=== PATIENT | female | born 1940 | race Caucasian/White ===

== ENCOUNTER 2022-07-13 07:35 | Outpatient (CLI) | payer MEDICARE, BC, SELFPAY ==
[2022-07-13 11:24] LABS: Cholesterol* 201 mg/dL (90-199); HDL Cholesterol* 72 mg/dL (>=50); LDL Cholesterol Calculated 118 mg/dL (<100); Triglycerides* 54 mg/dL (40-149)
[2022-07-13 12:13] LABS: Vitamin B12* 782 pg/mL (243-894)
== END 2022-07-13 07:36 | disposition home or self-care (01) ==
PROVIDERS: PCP Internal Medicine; Visit Provider Internal Medicine
DX: E78.5 Hyperlipidemia, unspecified (principal); E53.8 Deficiency of other specified B group vitamins
CPT/HCPCS: 80061; 82607

== ENCOUNTER 2022-10-24 13:40 | Outpatient (CLI) | payer MEDICARE, BC, SELFPAY ==
--- NOTE | 2022-10-24 14:00 | CRLHL7_ITS ---
For Patients: As a result of the Century Cures Act, medical imaging exams and procedure reports are released immediately into your electronic medical record. You may view this report before your referring provider. If you have questions, please contact your health care provider. Indication: LLL pulmonary nodule Technique: Noncontrast CT chest Please note that all CT scans at this facility use dose modulation, iterative reconstruction, and/or weight-based dosing when appropriate to reduce radiation dose to as low as reasonably achievable. Comparison: 07/24/2021 Findings: Biapical pleural parenchymal scarring is present. Stable 6 millimeter pleural-based nodule superior segment left lower lobe. Other smaller nodules are similar bilaterally. Mild scarring within the right middle lobe. No pleural effusion or acute infiltrate. Dense vascular calcifications are present. Stable low-density nodules throughout the thyroid. Scattered subcentimeter mediastinal lymph nodes. Incidental simple cysts within the left hepatic lobe. Coronary artery calcifications. Status post median sternotomy. No fractures present. Impression: Stable pulmonary nodules. No additional follow-up indicated. Please note that all CT scans at this facility use dose modulation, iterative reconstruction, and/or weight-based dosing when appropriate to reduce radiation dose to as low as reasonably achievable. Dictated by Eliseo Moreno MD @ 10/25/2022 11:00:55 AM (Electronically Signed)
== END 2022-10-24 13:41 | disposition home or self-care (01) ==
PROVIDERS: PCP Internal Medicine; Visit Provider Internal Medicine
DX: R91.1 Solitary pulmonary nodule (principal)
CPT/HCPCS: 71250

== ENCOUNTER 2023-03-08 08:11 | Outpatient (CLI) | payer MEDICARE, BC, SELFPAY | END 2023-03-08 08:12 | disposition home or self-care (01) | PROVIDERS: PCP Internal Medicine; Visit Provider Family Medicine | DX: R53.83 Other fatigue (principal); E53.8 Deficiency of other specified B group vitamins; R06.02 Shortness of breath | CPT/HCPCS: 80053 ==

== ENCOUNTER 2023-07-26 14:12 | Emergency (ER) | payer MEDICARE, BC, SELFPAY ==
[2023-07-26 14:31] VITALS: BP 138/65; PULSE 103; RESP 18; TEMP 36.4; O2SAT 98; BMI 16.8
--- NOTE | 2023-07-26 15:16 | ED.GENADULT ---
HPI - General Adult General Chief complaint: Fall/Minor Trauma Stated complaint: fall, hit head on concrete Time Seen by Provider: 07/26/23 15:16 History of Present Illness HPI narrative: Patient here after falling on her concrete driveway. She was opening the car door with a bag in her right arm and fell straight back. She hit her upper back and back of her head. Reddened area to back of her head, no bump yet or bleeding. Back is sore. When taking the patient to the bathroom, staff noting that she is unsteady at times and feeling foggy . Takes Plavix. 82-year-old woman presenting to the emergency department after a fall. She is not complaining of any significant pain beyond her back being a little sore. Apparently had been trying to open the car door while holding her bag as well and fell straight back. She denies that this was a syncopal event otherwise. Reported feeling ?foggy? on initial evaluation. Does take Plavix. She feels better now on would just as soon go home. No abdominal pain. No chest pain. No sense of irregular heartbeat/palpitations. Extremities were not injured. History of frequently feeling dizzy or with a fullness in her head. Related Data Home Medications Medication Instructions Recorded Confirmed cholecalciferol (vitamin D3) 25 1,000 unit PO DAILY 07/24/22 08/20/23 mcg (1,000 unit) tablet cyanocobalamin (vitamin B-12) 1,000 mcg PO DAILY 07/24/22 08/20/23 1,000 mcg tablet sennosides 8.6 mg tablet 8.6 mg PO DAILY 07/24/22 08/20/23 omega 4-vjs-dlc-fish oil 100 1 cap PO QDAY 02/26/23 08/20/23 mg-160 mg-1,000 mg capsule (Fish Oil) Previous Rx's Medication Instructions Recorded diltiazem HCl 120 mg 120 mg PO DAILY #90 caps 07/24/22 capsule,extended release 24 hr clopidogrel 75 mg tablet 75 mg PO DAILY #90 tabs 08/12/23 fluoxetine 10 mg capsule 10 mg PO QAM #90 caps 08/12/23 rosuvastatin 40 mg tablet 40 mg PO DAILY #90 tabs 08/12/23 Allergies Allergy/AdvReac Type Severity Reaction Status Date / Time No Known Drug Allergies Allergy Verified 08/20/23 08:44 Review of Systems Status of ROS: Reports: 6 or more systems reviewed and unremarkable except as noted in History and below PFSH PFSH Surgical History (Updated 08/26/23 @ 15:32 by Teagan Garcia MD) History of melanoma excision ?Z98.890 - Other specified postprocedural states (ICD-10) ?Z85.820 - Personal history of malignant melanoma of skin (ICD-10) History of total hip replacement (2011) ?Z96.649 - Presence of unspecified artificial hip joint (ICD-10) History of tonsillectomy ?Z90.89 - Acquired absence of other organs (ICD-10) History of squamous cell carcinoma excision (2002) ?Z98.890 - Other specified postprocedural states (ICD-10) ?Z85.9 - Personal history of malignant neoplasm, unspecified (ICD-10) History of repair of rotator cuff (1984) ?Z98.890 - Other specified postprocedural states (ICD-10) History of mitral valve replacement (2016) ?Z95.2 - Presence of prosthetic heart valve (ICD-10) History of hysterectomy ?Z90.710 - Acquired absence of both cervix and uterus (ICD-10) History of cataract extraction ?Z98.49 - Cataract extraction status, unspecified eye (ICD-10) Social History (Updated 08/20/23 @ 09:05 by Ame Nolan MD) Narrative: lives alone. . Non-smoker. What is your current living situation?: declined to answer Problems where you live: declined to answer In the past 12 months, utilities in danger of being shut off: declined to answer In past 12 months, lack of transportation kept you from medical appts, meetings, work, or getting things needed for daily living: declined to answer In the past 12 mos, have been you worried that your food would run out before you had money to buy more?: declined to answer In the past 12 mos, the food you bought just didn't last and you didn't have money to buy more?: declined to answer Smoking Status: Never smoker Do you use any of these nicotine containing products: None Second hand tobacco smoke exposure: No How often do you have a drink containing alcohol: never How often do you have six or more drinks on one occasion: Never AUDIT-C Alcohol total score: 0 Non-prescribed substance use: denies use How often does anyone, including family, friends and others, physically hurt you: decline to answer How often does anyone, including family, friends and others, insult or talk down to you: decline to answer How often does anyone, including family, friends and others, threaten you with harm: decline to answer How often does anyone, including family, friends and others, scream or curse at you: decline to answer Little interest or pleasure in doing things: not at all Feeling down, depressed, or hopeless: not at all Exam Narrative: Exam Narrative: A pleasant. Of good energy. Winces a little bit with movement in spite of herself I think. Cranial nerves 2-12 look to be intact. Pupils are equal and brisk. Appropriately accommodating. Neck is supple. No midline tenderness. Mild erythema and maybe subtle swelling the occipital area of her head. Lungs are clear. No midline back tenderness. Sore to palpation in the periscapular midthoracic spine but not markedly so. No deformity. No tenderness to oppositional compression. Moving all extremities without difficulty. No significant injury appreciated. Seems subtly confused, a little indecisive. Const: Vital Signs, click to edit/add: Vital Signs - 24 hr 07/26/23 14:31 07/26/23 16:18 Temperature 97.6 F Pulse Rate [Right Pulse Oximeter] 103 H 75 Respiratory Rate 18 18 Blood Pressure [Ri ght Upper Arm] 138/65 136/62 Pulse Oximetry 98 97 Oxygen Delivery Me thod Room Air Room Air Documenting provider has reviewed patient's vital signs: yes Course Vital Signs Vital signs: Initial Vital Signs Temperature 97.6 F 07/26/23 14:31 Temperature Source Temporal Artery Scan 07/26/23 14:31 Pulse Rate 103 H 07/26/23 14:31 Pulse Rhythm Regular 07/26/23 14:31 Respiratory Rate 18 07/26/23 14:31 Blood Pressure 138/65 07/26/23 14:31 Blood Pressure Mean 89 07/26/23 14:31 Blood Pressure Position Sitting 07/26/23 14:31 Pulse Oximetry 98 07/26/23 14:31 Oxygen Delivery Method Room Air 07/26/23 14:31 Vital Signs Temperature 97.6 F 07/26/23 14:31 Pulse Rate 103 H 07/26/23 14:31 Respiratory Rate 18 07/26/23 14:31 Blood Pressure 138/65 07/26/23 14:31 Pulse Oximetry 98 07/26/23 14:31 Oxygen Delivery Method Room Air 07/26/23 14:31 Temperature 97.6 F 07/26/23 14:31 Pulse Rate 75 07/26/23 16:18 Respiratory Rate 18 07/26/23 16:18 Blood Pressure 136/62 07/26/23 16:18 Pulse Oximetry 97 07/26/23 16:18 Oxygen Delivery Method Room Air 07/26/23 16:18 Medical Decision Making MDM Narrative Medical decision making narrative: Given age and potentially significant fall/mechanism, would recommend imaging of head and probably neck. Does not appear to have significant injury elsewhere. She was disinclined but decided to proceed with family's encouragement. EKG as below Head CT by my read looks negative for any acute abnormalities. Radiology over-read noted, concurs. CT cervical spine reviewed; radiology over-read below IMPRESSION: 1. No acute fracture or traumatic subluxation. 2. Multilevel cervical spondylosis. 3. Multiple hypoattenuating lesions in the thyroid gland, measuring up to 1.8 cm the right thyroid lobe. Thyroid ultrasound is offered for further characterization on a nonemergent basis. Discussed findings. Overall improved. ECG Data Attestation: I personally reviewed and interpreted this ECG as follows: (Sinus rhythm at a rate of 74. First degree AV block. Similar to prior on my review.) Discharge Plan Discharge Clinical Impression: Back contusion, Closed head injury, Fall Patient Disposition: Home w/ Parent or Adult Condition: Stable Additional Instructions: You do have this diagnosis of persistent postural perceptual dizziness. Unclear if this may have been playing a role in your fall. Consider icing sore areas couple of times daily over the next few days. Gentle stretching. Stay well-hydrated. Return for new and focal weakness, severe headache, repeated vomiting. Signs or symptoms of a concussion might be nausea or headache upon exertion which can also be an indication to back off that level of activity and reassess in a week.? Concussion can also be represented by smoldering nausea or smoldering headache, difficulty with concentration, mood lability general somnolence, sense of persistent fog or dizziness/lightheadedness.? If these symptoms are becoming apparent and continuing beyond 7-10 days, be re-evaluated for further recommendations. Prescriptions: No Action cyanocobalamin (vitamin B-12) 1,000 mcg tablet 1,000 mcg PO DAILY cholecalciferol (vitamin D3) 25 mcg (1,000 unit) tablet 1,000 unit PO DAILY sennosides 8.6 mg tablet 8.6 mg PO DAILY diltiazem HCl 120 mg capsule,extended release 24hr 120 mg PO DAILY Qty: 90 3RF Fish Oil 100-160-1,000 mg capsule 1 cap PO QDAY rosuvastatin 40 mg tablet 40 mg PO DAILY Qty: 90 3RF fluoxetine 10 mg capsule 10 mg PO QAM Qty: 90 3RF clopidogrel 75 mg tablet 75 mg PO DAILY Qty: 90 3RF Follow Up/Referrals: Teagan Garcia MD [Primary Care Provider] - Stand Alone Forms: [facility] Info Instructions
--- NOTE | 2023-07-26 15:26 | CRLHL7_ITS ---
For Patients: As a result of the Century Cures Act, medical imaging exams and procedure reports are released immediately into your electronic medical record. You may view this report before your referring provider. If you have questions, please contact your health care provider. INDICATION: Fall. TECHNIQUE: Noncontrast CT images acquired through the cervical spine. COMPARISON: None. FINDINGS: Straightening of the cervical lordosis. Mild rightward cervical curvature. Vertebral heights maintained. No acute fracture or traumatic subluxation. Degenerative changes at the atlantodental articulation. Left facet ankylosis at C3-4. Mild grade 1 anterolisthesis C4 on C5. Moderately advanced disc height loss at C4-5 and C5-6. Multilevel posterior disc osteophyte complexes contribute up to snbr-fy-jzjddpjl spinal canal narrowing at C5-6. Multilevel uncinate spurring and facet arthropathy contribute up to advanced neural foraminal stenosis on the left at C4-5 and right at C5-6. Atherosclerotic calcifications at the carotid bifurcations. Multiple hypoattenuating lesions in the thyroid gland, measuring up to 1.8 cm within the right thyroid lobe posteriorly. Pleural-parenchymal scarring in the lung apices. IMPRESSION: 1. No acute fracture or traumatic subluxation. 2. Multilevel cervical spondylosis. 3. Multiple hypoattenuating lesions in the thyroid gland, measuring up to 1.8 cm the right thyroid lobe. Thyroid ultrasound is offered for further characterization on a nonemergent basis. Please note that all CT scans at this facility use dose modulation, iterative reconstruction, and/or weight-based dosing when appropriate to reduce radiation dose to as low as reasonably achievable. Dictated by Boston Blair MD @ 07/26/2023 4:40:43 PM (Electronically Signed)
--- NOTE | 2023-07-26 15:26 | CRLHL7_ITS ---
For Patients: As a result of the Century Cures Act, medical imaging exams and procedure reports are released immediately into your electronic medical record. You may view this report before your referring provider. If you have questions, please contact your health care provider. INDICATION: Fall. TECHNIQUE: Noncontrast CT images acquired through the brain. COMPARISON: None. FINDINGS: Upxq-lk-lxwprsoz diffuse cerebral volume loss. No mass effect or midline shift. The parsons-white differentiation is maintained. No acute intracranial hemorrhage or pathologic extra-axial fluid collection. Patchy hypoattenuation in the supratentorial white matter, suggestive of ahnq-nx-aermfmtu chronic microvascular ischemic changes. Dense atherosclerotic calcifications in the carotid siphons. Chronic lacunar infarction left cerebellar hemisphere. Thinning of the ocular lenses. The calvarium is intact. The visualized paranasal sinuses and mastoid air cells are clear. IMPRESSION: No acute intracranial hemorrhage or mass effect. Please note that all CT scans at this facility use dose modulation, iterative reconstruction, and/or weight-based dosing when appropriate to reduce radiation dose to as low as reasonably achievable. Dictated by Boston Blair MD @ 07/26/2023 4:36:49 PM (Electronically Signed)
[2023-07-26 16:18] VITALS: BP 136/62; PULSE 75; RESP 18; O2SAT 97
== END 2023-07-26 17:08 | disposition home or self-care (01) ==
PROVIDERS: Emergency Provider Family Medicine; PCP Internal Medicine
DX: S09.90XA Unspecified injury of head, initial encounter (principal); S30.0XXA Contusion of lower back and pelvis, initial encounter; W18.30XA Fall on same level, unspecified, initial encounter
CPT/HCPCS: 70450; 72125; 93005; 99284; 99285

== ENCOUNTER 2023-08-09 07:50 | Outpatient (CLI) | payer MEDICARE, BC, SELFPAY | END 2023-08-09 07:51 | disposition home or self-care (01) | LOC: NFLDREF 08-14 06:07 | PROVIDERS: PCP Internal Medicine; Referring Provider Internal Medicine; Visit Provider Internal Medicine | DX: Z00.00 Encounter for general adult medical examination without abnormal findings (principal); E78.5 Hyperlipidemia, unspecified; E53.8 Deficiency of other specified B group vitamins | CPT/HCPCS: 80061; 82607 ==

== ENCOUNTER 2023-12-03 05:07 | Outpatient (CLI) | payer MEDICARE, BC, SELFPAY ==
--- OUTSIDE RECORDS SUMMARY | 2023-12-05 05:13 | XMS_ITS ---
Author Name Unknown Organization [facility] Address [address] [place] [address] Care Team Providers Care Counter Stitcher Name Role Phone Unavailable Unavailable Unavailable Surgery Details Not on file Complications Check Surgery Details section. Procedure Estimated Blood Loss Check Surgery Details section. Procedure Findings Check Surgery Details section. Procedure Specimens Taken Check Surgery Details section.
--- OUTSIDE RECORDS SUMMARY | 2023-12-05 05:13 | XMS_ITS | Referral Summary ---
Author Name Unknown Organization [facility] Address [address] [place] [address] Care Team Providers Care Chain Machine Operator Name Role Phone Elsewhere, Pcp Primary Care Provider Unavailabl e Source Comments Patient records contain information from all sites at [facility]. For routine questions regarding patient records, call [phone] during business hours, M-F 8:00 AM - 5:00 PM Central Time. Record requests for emergency care only can be directed to [phone] at any time.[facility] Allergies No known active allergies Medications Medication [...] week 05/25/2022 How often do you attend [facility] or amish services? More than 4 times per year 05/25/2022 Do you belong to any clubs o r organizations such as roman catholic groups, unions, fraternal or athletic groups, or [...] and heating? Not hard at all 05/25/2022 [facility] [place] of Occupat ional Health - Occupational Stress [...] place to sleep or slept in a longterm (including now)? No 05/25/2022 Nutrition Answer Date [...] on file Medical Devices Implanted Type Area Fox Farmer Device Identifier Shelf Expiration Date Model / Serial / Lot Cardiac Valve Prosthesis- Implanted:10/11 (Quantity not on file) Cardiac Valve Prosthesis Chest Care Teams Chain Machine Operator Relationship Specialty Start Date End Date Elsewhere, Pcp PCP - General Internal Medicine 05/24/22
--- OUTSIDE RECORDS SUMMARY | 2023-12-05 05:13 | XMS_ITS | Clinical Summary ---
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 02/25/2012 03/18/2012 Immunizations [...] 02/13/2012 (Declined) Medical Devices Implanted Type Area Wireless Team Member Device Identifier Shelf Expiration Date Model / Serial / Lot Valve Mitral 27mm Mosaic Tissue - [id number] Implanted:Qty: 1 on 10/09/2017 by Arian Alonzo MD at [facility] N/A: Mitral Valve Medtronic Cardiac Surgery 07/30/2022 [id number] / [id number] / Advance Directives Latest Code Status on File Code Status Date Activated Date Inactivated Comments Full Code 10/10/2017 8:10 AM 10/16/2017 4:15 PM Code Status History Code Status Date Activated Date Inactivated Comments Full Code 10/09/2017 6:00 AM 10/09/2017 11:27 AM Care Teams Materials Development Engineer Relationship Specialty Start Date End Date Teagan Garcia MD [address] [place] [address] PCP - General Internal Medicine 10/28/17
--- OUTSIDE RECORDS SUMMARY | 2023-12-05 05:13 | XMS_ITS | Clinical Summary ---
Author Name Unknown Organization [facility] Address [address] [place] [address] Care Team Providers Care Flight Software Test Engineer Name Role Phone Elsewhere, Pcp Primary Care Provider Unavailabl e Source Comments Patient records contain information from all sites at [facility]. For routine questions regarding patient records, call [phone] during business hours, M-F 8:00 AM - 5:00 PM Central Time. Record requests for emergency care only can be directed to [phone] at any time.[facility] Allergies No known active allergies Medications Medication [...] week 05/25/2022 How often do you attend [facility] or baptist services? More than 4 times per year [...] and heating? Not hard at all 05/25/2022 [facility] [place] of Occupat ional Health - Occupational Stress [...] place to sleep or slept in a prison (including now)? No 05/25/2022 Nutrition Answer Date [...] history exists Medical Devices Implanted Type Area Demographic Analyst Device Identifier Shelf Expiration Date Model / Serial / Lot Cardiac Valve Prosthesis- Implanted:10/11 (Quantity not on file) Cardiac Valve Prosthesis Chest Care Teams Flight Software Test Engineer Relationship Specialty Start Date End Date Elsewhere, Pcp PCP - General Internal Medicine 05/24/22
== END 2023-12-03 05:08 | disposition home or self-care (01) ==
PROVIDERS: PCP Internal Medicine; Visit Provider Family Medicine
DX: R55 Syncope and collapse (principal)
CPT/HCPCS: A0425; A0427

== ENCOUNTER 2023-12-03 05:48 | Emergency (ER) | payer MEDICARE, BC, SELFPAY ==
[2023-12-03] VITALS (13 sets, daily range): BP systolic 117–172; BP diastolic 70–81; PULSE 67–93; RESP 18–20; TEMP 36.6; O2SAT 96–99; BMI 17.5
--- OUTSIDE RECORDS SUMMARY | 2023-12-03 05:51 | XMS_ITS | Referral Summary ---
Author Name Unknown Organization [facility] Address [address] [place] [address] Care Team Providers Care Room Service Waiter/Waitress Name Role Phone Elsewhere, Pcp Primary Care Provider Unavailabl e Source Comments Patient records contain information from all sites at [facility]. For routine questions regarding patient records, call [phone] during business hours, M-F 8:00 AM - 5:00 PM Central Time. Record requests for emergency care only can be directed to [phone] at any time.[facility] Allergies No known active allergies Medications Medication Sig Dispensed Refills Start Date End Date Status rosuvastatin (CRESTOR) 40 mg tablet Take 1 tablet by mouth daily. 0 02/23/2020 Active dilTIAZem (CARDIZEM) 120 mg tablet Take 120 mg by mouth daily. 0 Active clopidogreL (PLAVIX) 75 mg tablet Take by mouth daily. 0 02/23/2019 Active sennosides (SENOKOT) 8.6 mg tablet Take 25.8 mg by mouth daily. 0 Active cholecalciferol (VITAMIN D3) 25 mcg (1,000 Unit) capsule Take 1 capsule by mouth daily. 0 02/23/2020 Active diphenhydrAMINE (BENADRYL) 25 mg capsule Take 25 mg by mouth as needed. 0 10/04/2017 Active acetaminophen (TYLENOL) 325 mg tablet Take 325 mg by mouth as needed for pain. Used Rarely 0 Active Hospital, Clinic, or Other Facility Administered Medication Ordered Dose Route Frequency Start Date End Date Status lidocaine (PF) 10 mg/mL (1 %) injection 5 mL (XYLOCAINE)Indications:Enceph alopathy 5 mL Ifil Once 06/15/2022 Active Social History Tobacco Use Types Packs/Day Years Used Date Smoking Tobacco: Former Cigarettes Smokeless Tobacco: Never Humiliation, Afraid, Rape, and Kick questionnair e Answer Date Recorded Within the last year, have y ou been afraid of your partner or ex-partner? No 05/25/2022 Within the last year, have y ou been humiliated or emotionally abused in other ways by your partner or ex-partner? No Within the last year, have y ou been kicked, hit, slapped, or otherwise physically hurt by your partner or ex-partner? No 05/25/2022 Within the last year, have y ou been raped or forced to have any kind of sexual activity by your partner or ex-partner? No 05/25/2022 Social Connection and Isolat ion Panel [NHANES] Answer Date Recorded In a typical week, how many times do you talk on the phone with family, friends, or neighbors? More than three times a week 05/25/2022 How often do you get togethe r with friends or relatives? More than three times a week 05/25/2022 How often do you attend [facility] or restorationist services? More than 4 times per year 05/25/2022 Do you belong to any clubs o r organizations such as mandaeism groups, unions, fraternal or athletic groups, or school groups? Yes 05/25/2022 How often do you attend meet ings of the clubs or organizations you belong to? More than 4 times per year 05/25/2022 Are you , , di vorced, , never , or living with a partner? 05/25/2022 AUDIT-C Answer Date Recorded Q1: How often do you have a drink containing alcohol? 4 or more times a week 05/25/2022 Q2: How many drinks containi ng alcohol do you have on a typical day when you are drinking? 1 or 2 2 Q3: How often do you have si x or more drinks on one occasion? Never 05/25/2022 Overall Financial Resource Strain (CARDIA) Answe r Date Recorded How hard is it for you to pa y for the very basics like food, housing, medical care, and heating? Not hard at all 05/25/2022 [facility] [place] of Occupat ional Health - Occupational Stress Questionnaire Answer Date Recorded Do you feel stress - tense, restless, nervous, or anxious, or unable to sleep at night because your mind is troubled all the time - these days? To some extent 05/25/2022 Exercise Vital Sign Answer Date Recorde d On average, how many days pe r week do you engage in moderate to strenuous exercise (like a brisk walk)? 7 days 05/25/2022 On average, how many minutes do you engage in exercise at this level? 80 min 05/25/2022 Hunger Vital Sign Answer Date Recorded Within the past 12 months, y ou worried that your food would run out before you got the money to buy more. Never true 05/25/20 Within the past 12 months, t he food you bought just didn't last and you didn't have money to get more. Never true 05/25/2022 PRAPARE - Transportation Answer Date Re corded In the past 12 months, has l ack of transportation kept you from medical appointments or from getting medications? No 05/11 In the past 12 months, has l ack of transportation kept you from meetings, work, or from getting things needed for daily living? No 05/25/2022 Housing Stability Vital Sign Answer Dave e Recorded In the last 12 months, was t here a time when you were not able to pay the mortgage or rent on time? No 05/25/2022 In the last 12 months, how many places have you lived? 1 05/25/2022 In the last 12 months, was t here a time when you did not have a steady place to sleep or slept in a [place] [facility] (including now)? No 05/25/2022 Nutrition Answer Date Recorded Nutrition: EVOO Fat Source Yes 05/25 On average, how many serving s of fruits and vegetables do you eat per day (serving size is equal to 1 cup or approximately the size of a tennis ball)? 4-5 05/25/2022 Dental Answer Date Recorded Dental: Regular Dentist Yes 05/25/20 Employment Answer Date Recorded Employment status Retired 05/25/2022 Education Answer Date Recorded What is the highest level of school you have completed or the highest degree you have received? Bachelor's degree (e.g., BA, AB, BS) 05/25/2022 Sex and Gender Information Value Date Recorded Sex Assigned at Female 05/25/2022 1:20 PM CDT Gender Identity Female 05/25/2022 1:20 PM CDT Sexual Orientation Straight 05/25/2022 1: 20 PM CDT Last Filed Vital Signs Vital Sign Reading Time Taken Comments Blood Pressure 149/80 05/15/2022 3:30 PM CDT Pulse 76 05/15/2022 3:30 PM CDT Temperature 36 ??C (96.8 ??F) 05/15/2022 3:00 PM CDT Respiratory Rate 16 05/15/2022 2:39 PM CDT Oxygen Saturation 92% 05/15/2022 3:30 PM CDT Inhaled Oxygen Concentration - - Weight 50 kg (110 lb 3.7 oz) 05/15/2022 2:40 PM CDT Height - - Body Mass Index - - Plan of Treatment Not on file Medical Devices Implanted Type Area Racing Board Marker Device Identifier Shelf Expiration Date Model / Serial / Lot Cardiac Valve Prosthesis- Implanted:10/11 (Quantity not on file) Cardiac Valve Prosthesis Chest Care Teams Room Service Waiter/Waitress Relationship Specialty Start Date End Date Elsewhere, Pcp PCP - General Internal Medicine 05/24/22
--- OUTSIDE RECORDS SUMMARY | 2023-12-03 05:51 | XMS_ITS | Clinical Summary ---
Author Name Unknown Organization [facility] Address [address] [place] [address] Care Team Providers Care Middle [employer] Tutor Name Role Phone Elsewhere, Pcp Primary Care Provider Unavailabl e Source Comments Patient records contain information from all sites at [facility]. For routine questions regarding patient records, call [phone] during business hours, M-F 8:00 AM - 5:00 PM Central Time. Record requests for emergency care only can be directed to [phone] at any time.[facility] Allergies No known active allergies [...] week 05/25/2022 How often do you attend [facility] or restoration services? More than 4 times per year 05/25/2022 Do you belong to any clubs o r organizations such as nondenominational groups, unions, fraternal or athletic groups, or [...] and heating? Not hard at all 05/25/2022 [facility] [address] of Occupat ional Health - Occupational Stress [...] place to sleep or slept in a care home (including now)? No 05/25/2022 Nutrition Answer Date [...] Mass Index - - Plan of Treatment Health Maintenance Due Date Last Done Comments Depression Screening (Annual PHQ-2) 11/11/2023 Fall Risk Screen (Annual) 11/11/2023 DTaP,Tdap,and Td Vaccines (5 - Td or Tdap) 10/02/2031 10/02/2021, 08/08/2011, 10/31/2005, Additional history exists Pneumococcal vaccine (65+ years) Completed 09/28/2016, 09/20/2014, 11/11/2006, Additional history exists Zoster Vaccines Completed 07/23/2021, 07/0 06/2021, 05/08/2011 COVID-19 Vaccine Completed 08/10/2023, , 09/05/2021, Additional history exists Influenza Vaccine Completed 08/10/2023, , 09/05/2021, Additional history exists Medical Devices Implanted Type Area Sales Branch Manager Device Identifier Shelf Expiration Date Model / Serial / Lot Cardiac Valve Prosthesis- Implanted:10/11 (Quantity not on file) Cardiac Valve Prosthesis Chest Care Teams Middle School Tutor Relationship Specialty Start Date End Date Elsewhere, Pcp PCP - General Internal Medicine 05/24/22
--- OUTSIDE RECORDS SUMMARY | 2023-12-03 05:51 | XMS_ITS | Clinical Summary ---
Author Name Unknown Organization [facility] Address [place], [place] [address] Care Team Providers Care Dish Person Name Role Phone Teagan Garcia MD Primary Care Provider [phone] Allergies No known active allergies Medications Medication Sig Dispensed Refills Start Date End Date Status diphenhydrAMINE (BENADRYL) 25 mg capsuleIndications:In somnia, unspecified type Take 1 capsule by mouth at bedtime if needed (takes 1-2 tablets for sleep). 0 10/04/2017 Active sennosides (SENNA) 8.6 mg tablet Take 8.6 mg by mouth once daily. Patient alternates between taking 1 tablet every evening and 2 tablets every evening 0 Active clopidogrel (PLAVIX) 75 mg tablet Take by mouth once daily. 3 02/23/2019 Active lactobacillus combination no.4 (PROBIOTIC) 3 billion cell cap Take by mouth once daily. 0 02/25/2019 Active rosuvastatin (CRESTOR) 20 mg tablet Take 1 tablet by mouth once daily. 0 02/23/2020 Active cholecalciferol (VITAMIN D3) 1,000 unit capsule Take 1 capsule by mouth once daily. 0 02/23/2020 Active Active Problems Problem Noted Date Diagnosed Date S/P MVR (mitral valve replacement) 10/09/2017 Overview: MVR with 27 mm Mosai bioprosthetic valve 10/09/17 Dr. Alonzo History of total right hip replacement 7 Severe mitral regurgitation 09/20/2017 Pelvic organ prolapse quantification stage 1 rec tocele 02/14/2017 Colon polyp 09/21/2014 Overview: Colonoscopy 01/2015 normal repeat in 5 years Cataracts, bilateral 10/26/2013 GERD (gastroesophageal reflux disease) 3 Melanoma 12/01/2012 Overview: On right lower leg Unspecified venous (peripheral) insufficiency Right hip pain 11/12/2011 Status post left hip replacement 11/12/2011 Overview: November 2010. 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 02/25/2012 03/18/2012 Immunizations Name Administration Dates Next Due DTaP 10/31/2005 HepA-HepB (Twinrix) 02/11/2012,09/11/2011,2010 Influenza, High-dose Inactivated 08/17/2016 Influenza, IIV3 (Age >=3 years) 09/04/2011 Influenza, ccIIV3 (Age >=18 Years) 09/09/2017 Pneumococcal Poly,23-Valent (Pneumovax) 11/11/19 07,11/28/2005 Pneumococcal conj 13-Valent (Prevnar 13) 016,09/20/2014,11/28/2005 Tdap 08/08/2011 Typhoid (oral) 09/11/2011 Zoster (Zostavax-ZVL, live) 05/08/2011 Family History Medical History Relation Name Comments Heart Disease Father Heart Disease Mother Hypertension Mother Blood Disease No Family History Cancer-breast No Family History Relation Name Status Comments Father Mother Social History Tobacco Use Types Packs/Day Years Used Date Smoking Tobacco: Former Cigarettes 1 25 0 [birth year]/11/1956 - 11/11/1981 Smokeless Tobacco: Never Tobacco Cessation:Counseling Given: Yes Alcohol Use Standard Drinks/Week Comments Yes 0 (1 standard drink = 0.6 oz pur e alcohol) 1-2 glasses of wine at night Social Connections Answer Date Recorded Frequency of Communication with Friends and Fami ly Not on file 11/11/2021 Financial Resource Strain Answer Date R ecorded Difficulty of Paying Living Expenses Not on file 11/11/2021 Difficulty of Paying Living Expenses Not on file 11/11/2021 Sex and Gender Information Value Date Recorded Sex Assigned at Not on file Gender Identity Not on file Sexual Orientation Not on file Obstetrics History Para Term AB IAB SAB Ectopic Multiple Livin g Live Births 3 2 2 1 1 2 Date Outcome GA Total Labor Labor/2nd/3rd Weight Sex Delivery Anes PTL Kaylan A1 A5 Name Cl in Term Term SAB Last Filed Vital Signs Vital Sign Reading Time Taken Comments Blood Pressure 122/69 05/29/2023 2:48 PM CDT Pulse 75 05/29/2023 2:48 PM CDT Temperature 36.8 ??C (98.3 ??F) 12/01/2019 2:42 PM CS T Respiratory Rate 14 08/05/2020 1:42 PM CDT Oxygen Saturation 96% 05/29/2023 2:48 PM CDT Inhaled Oxygen Concentration - - Weight 49.9 kg (110 lb) 09/05/2022 9:44 AM CDT Height 162.6 cm (5' 4) 02/25/2019 10:40 AM CDT Body Mass Index 18.88 02/25/2019 10:40 AM CDT Plan of Treatment Health Maintenance Due Date Last Done Comments Zoster (shingles) series for age 50+ (2 of 3) 07/03/2011 05/08/2011 Medicare Wellness for age 65+ 09/28/2017, 09/26/2015, 09/21/2014, Additional history exists Depression screening for age 12+ 10/29/2018 10/29/2017, 09/04/2017, 09/28/2016 BMI (ht and wt on same day) for age 18+ 02/26/2020 02/25/2019, 08/06/2018, 04/30/2018, Additional history exists Tetanus booster 08/08/2021 08/08/2011 COVID-19 vaccine series ( season) 2023 07/30/2022, 09/05/2021, 01/07/2021, Additional history exists Influenza for age 65+ 07/12/2023 09/09/2017 , 08/17/2016, 08/17/2016, Additional history exists Tdap Completed 08/08/2011 Pneumococcal series for age 65+ Completed 09/28/2016, 09/28/2016, 09/20/2014, Additional history exists DEXA/DXA scan for age 65+ Completed 2016, 02/13/2012 (Declined) Medical Devices Implanted Type Area Space Studies Faculty Member Device Identifier Shelf Expiration Date Model / Serial / Lot Valve Mitral 27mm Mosaic Tissue - [id number] Implanted:Qty: 1 on 10/09/2017 by Arian Alonzo MD at [facility] N/A: Mitral Valve [employer] Cardiac Surgery 07/30/2022 [id number] / [id number] / Advance Directives Latest Code Status on File Code Status Date Activated Date Inactivated Comments Full Code 10/10/2017 8:10 AM 10/16/2017 4:15 PM Code Status History Code Status Date Activated Date Inactivated Comments Full Code 10/09/2017 6:00 AM 10/09/2017 11:27 AM Care Teams Dish Person Relationship Specialty Start Date End Date Teagan Garcia MD [address] [facility] [place] [address] PCP - General Internal Medicine 10/28/17
--- OUTSIDE RECORDS SUMMARY | 2023-12-03 05:51 | XMS_ITS ---
Author Name Unknown Organization [facility] Address [address] [place] [address] Care Team Providers Care Secondary English Teacher Name Role Phone Unavailable Unavailable Unavailable Surgery Details Not on file Complications Check Surgery Details section. Procedure Estimated Blood Loss Check Surgery Details section. Procedure Findings Check Surgery Details section. Procedure Specimens Taken Check Surgery Details section.
--- NOTE | 2023-12-03 06:28 | CRLHL7_ITS ---
For Patients: As a result of the Century Cures Act, medical imaging exams and procedure reports are released immediately into your electronic medical record. You may view this report before your referring provider. If you have questions, please contact your health care provider. INDICATION: Possible seizure. COMPARISON: 07/26/2023 TECHNIQUE: CT of the brain/head without the use of IV contrast. Multiplanar axial, coronal, and sagittal reformats were reconstructed. FINDINGS: Normal parsons-white matter differentiation throughout. No acute or subacute infarct. No vasogenic or cytotoxic edema is seen in the white matter. No intracranial hemorrhage. No mass, mass effect, or midline shift. The ventricles are normal in size and shape. No fracture or focal osseous lesion. The mastoid and middle ears are clear. The paranasal sinuses are clear. Included orbit and globe are normal. IMPRESSION: Normal head CT. Please note that all CT scans at this facility use dose modulation, iterative reconstruction, and/or weight-based dosing when appropriate to reduce radiation dose to as low as reasonably achievable. Dictated by Marnie Mcelroy MD @ 12/03/2023 7:01:45 AM (Electronically Signed)
--- NOTE | 2023-12-03 06:33 | ED_ITS ---
HPI - General Adult General Chief complaint: Syncope/Fainted <Barb Pierre MD - Last Filed: 12/03/23 07:53> Stated complaint: passed out <Barb Pierre MD - Last Filed: 12/03/23 07:53> Time Seen by Provider: 12/03/23 05:52 <Barb Pierre MD - Last Filed: 12/03/23 07:53> Source: patient, family and EMS <Barb Pierre MD - Last Filed: 12/03/23 07:53> Mode of arrival: EMS <Barb Pierre MD - Last Filed: 12/03/23 07:53> History of Present Illness HPI narrative: 83-year-old female presents the emergency department with her family. She had a spell this morning when going to the bathroom. She reports that she was very restless with her sleep last night secondary to pain in her legs from recent skin cancer removal. States that she called out to her [id number] to help her to the bathroom this morning after having the urge to urinate. Daughter supervised to the patient with her walker and help steady her on to the toilet. Daughter turned around to give patient privacy while she was on the toilet. She heard a slight motion and turned around and found the patient to be extended stiffly and shaking, unresponsive. The spell lasted about 30 seconds. She did not fall off the toilet. After the shaking, patient came to pretty quickly and does not give history that would seem like a postictal episode. Did not hit her head, no falls. Not experiencing any neurological changes now at this time. She had a similar episode where she suddenly fell backwards while standing in the [facility] this past July and was medically evaluated at that time as well. She has no history of coronary artery disease. She is not experiencing any chest pain. She reports that she has some chronic tightness bilaterally in the lower ribs that wraps around from the back to the front but that has been present for years and is no different than her baseline symptom. She has a history of mitral valve replacement in 2017, denies problems or complications since. No dyspnea on exertion, no productive cough. No known illness exposures. She is not having bloody stools, diarrhea or vomit. Due to pain, technical testing engineer did call in a few oxycodone tablets for patient, looks like 5 mg tablets. Family states they gave her 1 last night at approximately 8:00 p.m. and it was somewhat effective in helping with her pain. She is not typically on narcotic medications. Other than the oxycodone, there have been no recent changes to her medication regimen. <Barb Pierre MD - Last Filed: 12/03/23 07:53> Related Data Home medications: Home Medications ?Medication ?Instructions ?Recorded ?Confirmed cholecalciferol (vitamin D3) 25 1,000 unit PO DAILY 07/24/22 04/21/24 mcg (1,000 unit) tablet cyanocobalamin (vitamin B-12) 1,000 mcg PO DAILY 07/24/22 04/21/24 1,000 mcg tablet sennosides 8.6 mg tablet 8.6 mg PO DAILY 07/24/22 04/21/24 omega 1-qmn-ctg-fish oil 100 1 cap PO QDAY 02/26/23 04/21/24 mg-160 mg-1,000 mg capsule (Fish Oil) niacinamide 500 mg tablet 1,000 mg PO QDAY 11/26/23 04/21/24 Previous Rx's ?Medication ?Instructions ?Recorded clopidogrel 75 mg tablet 75 mg PO DAILY #90 tabs 08/12/23 rosuvastatin 40 mg tablet 40 mg PO DAILY #90 tabs 08/12/23 diltiazem HCl 120 mg 120 mg PO DAILY #90 caps 09/10/23 capsule,extended release 24 hr fluoxetine 20 mg capsule 20 mg PO QAM #90 caps 11/26/23 <Barb Pierre MD - Last Filed: 12/03/23 07:53> Allergies/adverse reactions: Allergies Allergy/AdvReac Type Severity Reaction Status Date / Time No Known Drug Allergies Allergy Verified 04/21/24 15:59 <Barb Pierre MD - Last Filed: 12/03/23 07:53> [facility] Surgical History: Surgical History History of melanoma excision ?Z98.890 - Other specified postprocedural states (ICD-10) ?Z85.820 - Personal history of malignant melanoma of skin (ICD-10) History of total hip replacement (2011) ?Z96.649 - Presence of unspecified artificial hip joint (ICD-10) History of tonsillectomy ?Z90.89 - Acquired absence of other organs (ICD-10) History of squamous cell carcinoma excision (2002) ?Z98.890 - Other specified postprocedural states (ICD-10) ?Z85.9 - Personal history of malignant neoplasm, unspecified (ICD-10) History of repair of rotator cuff (1984) ?Z98.890 - Other specified postprocedural states (ICD-10) History of mitral valve replacement (2016) ?Z95.2 - Presence of prosthetic heart valve (ICD-10) History of hysterectomy ?Z90.710 - Acquired absence of both cervix and uterus (ICD-10) History of cataract extraction ?Z98.49 - Cataract extraction status, unspecified eye (ICD-10) <Barb Pierre MD - Last Filed: 12/03/23 07:53> Social History: Social History Narrative: lives alone. . Non-smoker. What is your current living situation?: declined to answer Problems where you live: declined to answer In the past 12 months, utilities in danger of being shut off: declined to answer In past 12 months, lack of transportation kept you from medical appts, meetings, work, or getting things needed for daily living: declined to answer In the past 12 mos, have been you worried that your food would run out before you had money to buy more?: declined to answer In the past 12 mos, the food you bought just didn't last and you didn't have m oney to buy more?: declined to answer Smoking Status: Never smoker Do you use any of these nicotine containing products: None Second hand tobacco smoke exposure: No How often do you have a drink containing alcohol: never How often do you have six or more drinks on one occasion: Never AUDIT-C Alcohol total score: 0 Non-prescribed substance use: denies use How often does anyone, including family, friends and others, physically hurt you : decline to answer How often does anyone, including family, friends and others, insult or talk down to you: decline to answer How often does anyone, including family, friends and others, threaten you with harm: decline to answer How often does anyone, including family, friends and others, scream or curse at you: decline to answer Little interest or pleasure in doing things: not at all Feeling down, depressed, or hopeless: several days service: No <Barb Pierre MD - Last Filed: 12/03/23 07:53> Exam Const: Vital Signs, click to edit/add: Vital Signs - 24 hr 12/03/23 05:58 12/03/23 06:02 12/03/23 06:10 Temperature 97.8 F Pulse Rate 74 Pulse Rate [Pulse Oximeter] 78 Respiratory Rate 18 Blood Pressure Blood Pressure [Ri ght Upper Arm] 148/78 H Pulse Oximetry 98 99 98 Oxygen Delivery Me thod Room Air 12/03/23 06:30 12/03/23 06:34 Temperature Pulse Rate 73 75 Pulse Rate [Pulse Oximeter] Respiratory Rate 20 Blood Pressure 172/81 H Blood Pressure [Ri ght Upper Arm] Pulse Oximetry 98 97 Oxygen Delivery Me thod <Barb Pierre MD - Last Filed: 12/03/23 07:53> Vital Signs, click to edit/add: Vital Signs - 24 hr 12/03/23 05:58 12/03/23 06:02 12/03/23 06:10 Temperature 97.8 F Pulse Rate 74 Pulse Rate [Pulse Oximeter] 78 Respiratory Rate 18 Blood Pressure Blood Pressure [Ri ght Upper Arm] 148/78 H Pulse Oximetry 98 99 98 Oxygen Delivery Me thod Room Air 12/03/23 06:30 12/03/23 06:34 Temperature Pulse Rate 73 75 Pulse Rate [Pulse Oximeter] Respiratory Rate 20 Blood Pressure 172/81 H Blood Pressure [Ri ght Upper Arm] Pulse Oximetry 98 97 Oxygen Delivery Me thod <Concha Retana MD - Last Filed: 12/03/23 08:17> Common normals: no apparent distress and alert <Barb Pierre MD - Last Filed: 12/03/23 07:53> General appearance: cooperative and well kempt <Barb Pierre MD - Last Filed: 12/03/23 07:53> Other: Some mild confusion and confabulates slightly. According to family this is fairly typical for her and not a change from baseline. Attempts answer questions appropriately and does seem to understand questions adequately. <Barb Pierre MD - Last Filed: 12/03/23 07:53> HENMT: Common normals: normocephalic <MD Clara Benítez Last Filed: 12/03/23 07:53> Head and scalp: normocephalic <MD Clara Benítez Last Filed: 12/03/23 07:53> Face and sinus: normal facial exam <MD Clara Benítez Last Filed: 12/03/23 07:53> Mouth: oral and palatal mucosa normal <MD Clara Benítez Last Filed: 12/03/23 07:53> Throat: posterior oropharynx normal <MD Clara Benítez Last Filed: 12/03/23 07:53> Eye: Common normals: PERRL, EOMs intact bilaterally and conjunctivae normal <MD Clara Benítez Last Filed: 12/03/23 07:53> General eye: normal appearance of both eyes <MD Clara Benítez Last Filed: 12/03/23 07:53> Conjunctiva: conjunctiva(e) normal <MD Clara Benítez Last Filed: 12/03/23 07:53> Pupil: PERRL <MD Clara Benítez Last Filed: 12/03/23 07:53> Neck & C-Spine: Common normals: no lymphadenopathy <MD Clara Benítez Last Filed: 12/03/23 07:53> General: normal visual inspection <MD Clara Benítez Last Filed: 12/03/23 07:53> Resp: Common normals: normal respiratory effort, no use of accessory muscles and clear to auscultation bilaterally <MD Clara Benítez Last Filed: 12/03/23 07:53> Effort & inspection: able to speak in complete sentences <MD Clara Bneítez Last Filed: 12/03/23 07:53> Auscultation: clear to auscultation bilaterally <MD Clara Benítez Last Filed: 12/03/23 07:53> Cardio: Common normals: regular rate, regular rhythm, S1 normal heart sound, S2 normal heart sound and no murmurs <MD Clara Benítez Last Filed: 12/03/23 07:53> Rate: regular rate <Barb Pierre MD - Last Filed: 12/03/23 07:53> Rhythm: regular rhythm <MD Clara Benítez Last Filed: 12/03/23 07:53> Heart sounds: S1 normal and S2 normal <MD Clara Benítez Last Filed: 12/03/23 07:53> GI: Common normals: Normal to inspection, nondistended, normoactive bowel sounds present, soft to palpation, non-tender, no hepatosplenomegaly and no masses <Barb Pierre MD - Last Filed: 12/03/23 07:53> Palpation: soft and no hepatosplenomegaly <Barb Pierre MD - Last Filed: 12/03/23 07:53> Back & Pelvis: Other: Some loss of rib hip distance but no point bony tenderness on the thoracolumbar spine. <Barb Pierre MD - Last Filed: 12/03/23 07:53> Extremity: Other: I carefully pulled back the gauze and Kerlix to examine wounds. Prolene sutures appear to be perfectly well placed, there is not a significant amount of surrounding redness, drainage or other unusual features. Incision is a little longer on the left, consistent with described procedures. <MD Clara Benítez Last Filed: 12/03/23 07:53> Neuro: Sensorium/orientation: alert <MD Clara Benítez Last Filed: 12/03/23 07:53> Speech: speech normal <MD Clara Benítez Last Filed: 12/03/23 07:53> Motor exam: strength 5/5 throughout, no tremor noted and no movement abnormalities noted <MD Clara Benítez Last Filed: 12/03/23 07:53> Psych: Appearance: well kempt <Barb Pierre MD - Last Filed: 12/03/23 07:53> Attitude: engaged <Barb Pierre MD - Last Filed: 12/03/23 07:53> Insight: fair <Barb Pierre MD - Last Filed: 12/03/23 07:53> Judgement: fair <Barb Pierre MD - Last Filed: 12/03/23 07:53> Skin: Narrative: Other than the known incisions on both anterior lower tibia is, no new bruising or signs of injury. <Barb Pierre MD - Last Filed: 12/03/23 07:53> Course Course ED Course: Syncopal episode on the toilet verses seizure. Jerking could have been myoclonic type jerking associated with syncopal event. But story is a little concerning for seizure though it does not seem as though there was a postictal phase, could have been a partial seizure. I recommended a CT scan of the head, I will review the notes from last fall. Basic labs, conveyor monitor, EKG. Will give a little Tylenol to help with discomfort while we continue our workup. May need additional outpatient cardiac studies including echo and a Holter monitor if test today are unrevealing. <Barb Pierre MD - Last Filed: 12/03/23 07:53> Reevaluation(s) Time of Reevaluation #1: 07:44 <Barb Pierre MD - Last Filed: 12/03/23 07:53> Reevaluation #1: Reviewed findings with family, she is feeling better and would like to try to go home. Lactate levels are normal, CT scan of the head is not suggestive of a new mass, stroke or obvious etiology for a seizure. This certainly could be a partial seizure. My suspicion is more likely that this was the vagal event triggered by underlying 1st degree heart block in the setting of significant exhaustion from poor sleep. Similar syncopal episode in July, those notes are reviewed as well. It does sound as though she saw her warehouse worker this past fall and had an echo around that time. I was not able to locate the echo. I think she could benefit from a Holter monitor to see if she is having arrhythmias that we are not catching. I will ask her primary care provider to set this up. Thankfully, she sees Dr. Garcia who would be able to read the study as well. She may benefit from consideration of a pacemaker due to the recurrent nature of these spells now. I do not think that the oxycodone has been contributing today. I did advise that she use Tylenol for the discomfort from the recent skin cancer removals and try to use the oxycodone sparingly, starting with a half of a tablet as needed. Family is able to stay with her for the next couple of days to that she is not alone. I think this would be helpful. Drink lots of water to help reduce chance of syncope. If the cardiac workup is nonrevealing, consider MRI and/or neurology consult for partial seizure disorder. I do not think that she would benefit from hospitalization at this time and she is agreeable. <Barb Pierre MD - Last Filed: 12/03/23 07:53> Time of Reevaluation #2: 07:52 <Barb Pierre MD - Last Filed: 12/03/23 07:53> Reevaluation #2: I observed the trial of ambulation in the hallway. Patient is out pacing the nurse, not using the walker and appears quite steady. No neurological deficits. I think she is safe to discharge with the instructions given as above. <Barb Pierre MD - Last Filed: 12/03/23 07:53> Time of Reevaluation #3: 08:15 <Concha Retana MD - Last Filed: 12/03/23 08:17> Reevaluation #3: Discharge I was told by nursing staff that the patient had orthostatic hypotension blood pressure dropping to 117 systolic upon standing. Wound to discuss this with patient. She tells me that when she stands up quickly she feels a little lightheaded it lasts a few seconds and then it goes away. She states this has happened for a long time and she is very careful about standing up quickly. She tells me that she grabs on the things around the house when she does that and she is very well aware of how this feels. At this time, I do recommend another small bolus of fluids, however she tells me that she does not want this and she would like to be discharged home at this time. We discussed the risk of having orthostatic hypotension and the risk of falling. Again patient assures me that she is well aware of this and does not wish to have any further treatment for it at this time. Her 2 sons are in the room for this conversation. I do recommend that she follow up with her primary care provider this week. <Concha Retana MD - Last Filed: 12/03/23 08:17> Vital Signs Vital signs: Initial Vital Signs Temperature 97.8 F 12/03/23 05:58 Temperature Source Temporal Artery Scan 12/03/23 05:58 Pulse Rate 78 12/03/23 05:58 Respiratory Rate 18 12/03/23 05:58 Blood Pressure 148/78 H 12/03/23 05:58 Blood Pressure Mean 101 12/03/23 05:58 Blood Pressure Position Sitting 12/03/23 05:58 Pulse Oximetry 98 12/03/23 05:58 Oxygen Delivery Method Room Air 12/03/23 05:58 Vital Signs Temperature 97.8 F 12/03/23 05:58 Pulse Rate 78 12/03/23 05:58 Respiratory Rate 18 12/03/23 05:58 Blood Pressure 148/78 H 12/03/23 05:58 Pulse Oximetry 98 12/03/23 05:58 Oxygen Delivery Method Room Air 12/03/23 05:58 Temperature 97.8 F 12/03/23 05:58 Pulse Rate 73 12/03/23 08:00 Respiratory Rate 20 12/03/23 06:34 Blood Pressure 117/73 12/03/23 08:05 Pulse Oximetry 96 12/03/23 07:34 Oxygen Delivery Method Room Air 12/03/23 05:58 <Barb Pierre MD - Last Filed: 12/03/23 07:53> Initial Vital Signs Temperature 97.8 F 12/03/23 05:58 Temperature Source Temporal Artery Scan 12/03/23 05:58 Pulse Rate 78 12/03/23 05:58 Respiratory Rate 18 12/03/23 05:58 Blood Pressure 148/78 H 12/03/23 05:58 Blood Pressure Mean 101 12/03/23 05:58 Blood Pressure Position Sitting 12/03/23 05:58 Pulse Oximetry 98 12/03/23 05:58 Oxygen Delivery Method Room Air 12/03/23 05:58 Vital Signs Temperature 97.8 F 12/03/23 05:58 Pulse Rate 78 12/03/23 05:58 Respiratory Rate 18 12/03/23 05:58 Blood Pressure 148/78 H 12/03/23 05:58 Pulse Oximetry 98 12/03/23 05:58 Oxygen Delivery Method Room Air 12/03/23 05:58 Temperature 97.8 F 12/03/23 05:58 Pulse Rate 73 12/03/23 08:00 Respiratory Rate 20 12/03/23 06:34 Blood Pressure 117/73 12/03/23 08:05 Pulse Oximetry 96 12/03/23 07:34 Oxygen Delivery Method Room Air 12/03/23 05:58 <Concha Retana MD - Last Filed: 12/03/23 08:17> Medications Administered Medications: Discontinued Medications Generic Name Dose Route Start Last Admin Trade Name Freq PRN Reason Stop Dose Admin Acetaminophen 650 mg 12/03/23 06:28 12/03/23 06:35 Acetaminophen 325 Mg Tablet PO 12/03/23 06:29 650 mg ONCE ONE Administration <Barb Pierre MD - Last Filed: 12/03/23 07:53> Discontinued Medications Generic Name Dose Route Start Last Admin Trade Name Freq PRN Reason Stop Dose Admin Acetaminophen 650 mg 12/03/23 06:28 12/03/23 06:35 Acetaminophen 325 Mg Tablet PO 12/03/23 06:29 650 mg ONCE ONE Administration <Concha Retana MD - Last Filed: 12/03/23 08:17> Medical Decision Making Lab Data Lab results reviewed: Yes I reviewed the patient's lab results <Barb Pierre MD - Last Filed: 12/03/23 07:53> Lab results narrative: Normal lactate, no significant leukocytosis. Cardiac enzymes look great as well. CRP only minimally elevated. Negative influenza and COVID swab. All reassuring labs. <Barb Pierre MD - Last Filed: 12/03/23 07:53> Labs: Lab Results 12/03/23 12/03/23 12/03/23 Range/Units 06:15 06:20 06:28 WBC 5.93 (4.50-11.00) K/uL RBC 4.06 (4.00-5.20) m/uL Hgb 13.3 (12.0-16.0) gm/dL Hct 39.5 (33.0-51.0) % MCV 97 (80-100) fL MCH 33 (26-34) pg MCHC 34 (32-36) gm/dL RDW Coeff of Katia 12.1 (11.5-15.5) % Plt Count 195 (140-440) K/uL Neut % (Auto) 70.9 (42.0-72.0) % Lymph % (Auto) 20.7 (20-44) % Granite % (Auto) 6.6 (0.0-11.0) % Eos % (Auto) 0.8 (0.0-7.0) % Baso % (Auto) 0.8 (0.0-3.0) % Neut # (Auto) 4.20 (1.7-7.0) K/uL Lymph # (Auto) 1.23 (0.90-2.90) K/uL Granite # (Auto) 0.40 (0.00-0.90) K/UL Eos # (Auto) 0.05 (0.00-0.50) K/uL Baso # (Auto) 0.05 (0.00-0.30) K/uL Abs Immat Gran (auto) 0.01 (0.00-0.30) K/uL Imm/Tot Granulo (auto) 0.2 % Sodium 135 (135-149) mmol/L Potassium 3.4 L (3.6-5.1) mmol/L Chloride 101 (96-114) mmol/L Carbon Dioxide 25 (20-32) mmol/L Anion Gap 9 (7-15) mEq/L BUN 11 (7-30) mg/dL Creatinine 0.6 (0.5-1.5) mg/dL Estimated Creat Clear 30.92 Estimated GFR 88 ml/min Glucose 99 (60-115) mg/dL Lactate (0.5-1.9) mmol/L Calcium 8.9 (8.4-10.6) mg/dL Total Bilirubin 1.3 (0.1-1.5) mg/dL AST 37 H (12-35) U/L ALT 28 (4-35) U/L Alkaline Phosphatase 51 (40-150) U/L Troponin I < 0.01 L (0.01-0.04) ng/mL NT-Pro-B Natriuret Pep 849 pg/mL Total Protein 6.8 (6.0-8.3) g/dL Albumin 4.3 (3.3-5.0) g/dL Urine Color (Yellow) Urine Appearance (Clear) Urine pH (5.0-8.5) Ur Specific Irwin (1.000-1.030) Urine Protein (Negative) Urine Glucose (UA) (Negative) Urine Ketones (Negative) Urine Blood (Negative) Urine Nitrite (Negative) Urine Bilirubin (Negative) Urine Urobilinogen (0.2-1.0) Ur Leukocyte Esterase (Negative) Urine RBC (0-2) Urine WBC (0-5) Ur Squamous Epith Cells (None-Few) Urine Bacteria (None) SARS-CoV-2 (PCR) Negative SARS-CoV-2 (Negative) Influenza Type A (PCR) Negative PCR FLU A (Negative) Influenza Type B (PCR) Negative PCR FLU B (Negative) RSV (PCR) Negative PCR RSV (Negative) POC Troponin I 0.01 (0.01-0.04) ng/ml 12/03/23 12/03/23 Range/Units 07:04 07:15 WBC (4.50-11.00) K/uL RBC (4.00-5.20) m/uL Hgb (12.0-16.0) gm/dL Hct (33.0-51.0) % MCV (80-100) fL MCH (26-34) pg MCHC (32-36) gm/dL RDW Coeff of Katia (11.5-15.5) % Plt Count (140-440) K/uL Neut % (Auto) (42.0-72.0) % Lymph % (Auto) (20-44) % Granite % (Auto) (0.0-11.0) % Eos % (Auto) (0.0-7.0) % Baso % (Auto) (0.0-3.0) % Neut # (Auto) (1.7-7.0) K/uL Lymph # (Auto) (0.90-2.90) K/uL Granite # (Auto) (0.00-0.90) K/UL Eos # (Auto) (0.00-0.50) K/uL Baso # (Auto) (0.00-0.30) K/uL Abs Immat Gran (auto) (0.00-0.30) K/uL Imm/Tot Granulo (auto) % Sodium (135-149) mmol/L Potassium (3.6-5.1) mmol/L Chloride (96-114) mmol/L Carbon Dioxide (20-32) mmol/L Anion Gap (7-15) mEq/L BUN (7-30) mg/dL Creatinine (0.5-1.5) mg/dL Estimated Creat Clear Estimated GFR ml/min Glucose (60-115) mg/dL Lactate 0.9 (0.5-1.9) mmol/L Calcium (8.4-10.6) mg/dL Total Bilirubin (0.1-1.5) mg/dL AST (12-35) U/L ALT (4-35) U/L Alkaline Phosphatase (40-150) U/L Troponin I (0.01-0.04) ng/mL NT-Pro-B Natriuret Pep pg/mL Total Protein (6.0-8.3) g/dL Albumin (3.3-5.0) g/dL Urine Color Yellow (Yellow) Urine Appearance Clear (Clear) Urine pH 8.5 (5.0-8.5) Ur Specific Irwin 1.015 (1.000-1.030) Urine Protein Negative (Negative) Urine Glucose (UA) Negative (Negative) Urine Ketones Negative (Negative) Urine Blood Trace-intact A (Negative) Urine Nitrite Negative (Negative) Urine Bilirubin Negative (Negative) Urine Urobilinogen 0.2 (0.2-1.0) Ur Leukocyte Esterase Negative (Negative) Urine RBC 2-5 A (0-2) Urine WBC 0-2 (0-5) Ur Squamous Epith Cells Few (None-Few) Urine Bacteria Few A (None) SARS-CoV-2 (PCR) (Negative) Influenza Type A (PCR) (Negative) Influenza Type B (PCR) (Negative) RSV (PCR) (Negative) POC Troponin I (0.01-0.04) ng/ml <Barb Pierre MD - Last Filed: 12/03/23 07:53> Lab Results 12/03/23 12/03/23 12/03/23 Range/Units 06:15 06:20 06:28 WBC 5.93 (4.50-11.00) K/uL RBC 4.06 (4.00-5.20) m/uL Hgb 13.3 (12.0-16.0) gm/dL Hct 39.5 (33.0-51.0) % MCV 97 (80-100) fL MCH 33 (26-34) pg MCHC 34 (32-36) gm/dL RDW Coeff of Katia 12.1 (11.5-15.5) % Plt Count 195 (140-440) K/uL Neut % (Auto) 70.9 (42.0-72.0) % Lymph % (Auto) 20.7 (20-44) % Granite % (Auto) 6.6 (0.0-11.0) % Eos % (Auto) 0.8 (0.0-7.0) % Baso % (Auto) 0.8 (0.0-3.0) % Neut # (Auto) 4.20 (1.7-7.0) K/uL Lymph # (Auto) 1.23 (0.90-2.90) K/uL Granite # (Auto) 0.40 (0.00-0.90) K/UL Eos # (Auto) 0.05 (0.00-0.50) K/uL Baso # (Auto) 0.05 (0.00-0.30) K/uL Abs Immat Gran (auto) 0.01 (0.00-0.30) K/uL Imm/Tot Granulo (auto) 0.2 % Sodium 135 (135-149) mmol/L Potassium 3.4 L (3.6-5.1) mmol/L Chloride 101 (96-114) mmol/L Carbon Dioxide 25 (20-32) mmol/L Anion Gap 9 (7-15) mEq/L BUN 11 (7-30) mg/dL Creatinine 0.6 (0.5-1.5) mg/dL Estimated Creat Clear 30.92 Estimated GFR 88 ml/min Glucose 99 (60-115) mg/dL Lactate (0.5-1.9) mmol/L Calcium 8.9 (8.4-10.6) mg/dL Total Bilirubin 1.3 (0.1-1.5) mg/dL AST 37 H (12-35) U/L ALT 28 (4-35) U/L Alkaline Phosphatase 51 (40-150) U/L Troponin I < 0.01 L (0.01-0.04) ng/mL NT-Pro-B Natriuret Pep 849 pg/mL Total Protein 6.8 (6.0-8.3) g/dL Albumin 4.3 (3.3-5.0) g/dL Urine Color (Yellow) Urine Appearance (Clear) Urine pH (5.0-8.5) Ur Specific Irwin (1.000-1.030) Urine Protein (Negative) Urine Glucose (UA) (Negative) Urine Ketones (Negative) Urine Blood (Negative) Urine Nitrite (Negative) Urine Bilirubin (Negative) Urine Urobilinogen (0.2-1.0) Ur Leukocyte Esterase (Negative) Urine RBC (0-2) Urine WBC (0-5) Ur Squamous Epith Cells (None-Few) Urine Bacteria (None) SARS-CoV-2 (PCR) Negative SARS-CoV-2 (Negative) Influenza Type A (PCR) Negative PCR FLU A (Negative) Influenza Type B (PCR) Negative PCR FLU B (Negative) RSV (PCR) Negative PCR RSV (Negative) POC Troponin I 0.01 (0.01-0.04) ng/ml 12/03/23 12/03/23 Range/Units 07:04 07:15 WBC (4.50-11.00) K/uL RBC (4.00-5.20) m/uL Hgb (12.0-16.0) gm/dL Hct (33.0-51.0) % MCV (80-100) fL MCH (26-34) pg MCHC (32-36) gm/dL RDW Coeff of Katia (11.5-15.5) % Plt Count (140-440) K/uL Neut % (Auto) (42.0-72.0) % Lymph % (Auto) (20-44) % Granite % (Auto) (0.0-11.0) % Eos % (Auto) (0.0-7.0) % Baso % (Auto) (0.0-3.0) % Neut # (Auto) (1.7-7.0) K/uL Lymph # (Auto) (0.90-2.90) K/uL Granite # (Auto) (0.00-0.90) K/UL Eos # (Auto) (0.00-0.50) K/uL Baso # (Auto) (0.00-0.30) K/uL Abs Immat Gran (auto) (0.00-0.30) K/uL Imm/Tot Granulo (auto) % Sodium (135-149) mmol/L Potassium (3.6-5.1) mmol/L Chloride (96-114) mmol/L Carbon Dioxide (20-32) mmol/L Anion Gap (7-15) mEq/L BUN (7-30) mg/dL Creatinine (0.5-1.5) mg/dL Estimated Creat Clear Estimated GFR ml/min Glucose (60-115) mg/dL Lactate 0.9 (0.5-1.9) mmol/L Calcium (8.4-10.6) mg/dL Total Bilirubin (0.1-1.5) mg/dL AST (12-35) U/L ALT (4-35) U/L Alkaline Phosphatase (40-150) U/L Troponin I (0.01-0.04) ng/mL NT-Pro-B Natriuret Pep pg/mL Total Protein (6.0-8.3) g/dL Albumin (3.3-5.0) g/dL Urine Color Yellow (Yellow) Urine Appearance Clear (Clear) Urine pH 8.5 (5.0-8.5) Ur Specific Irwin 1.015 (1.000-1.030) Urine Protein Negative (Negative) Urine Glucose (UA) Negative (Negative) Urine Ketones Negative (Negative) Urine Blood Trace-intact A (Negative) Urine Nitrite Negative (Negative) Urine Bilirubin Negative (Negative) Urine Urobilinogen 0.2 (0.2-1.0) Ur Leukocyte Esterase Negative (Negative) Urine RBC 2-5 A (0-2) Urine WBC 0-2 (0-5) Ur Squamous Epith Cells Few (None-Few) Urine Bacteria Few A (None) SARS-CoV-2 (PCR) (Negative) Influenza Type A (PCR) (Negative) Influenza Type B (PCR) (Negative) RSV (PCR) (Negative) POC Troponin I (0.01-0.04) ng/ml <Concha Retana MD - Last Filed: 12/03/23 08:17> Imaging Data CT scan - head: Attestation: I have reviewed the pertinent imaging results. <Barb Pierre MD - Last Filed: 12/03/23 07:53> My impression: Age expected degenerative changes, no other abnormality. <Barb Pierre MD - Last Filed: 12/03/23 07:53> Radiologist's impression: IMPRESSION: Normal head CT. <Barb Pierre MD - Last Filed: 12/03/23 07:53> ECG Data Attestation: I personally reviewed and interpreted this ECG as follows: <Barb Pierre MD - Last Filed: 12/03/23 07:53> Prior ECG tracings: available for review <Barb Pierre MD - Last Filed: 12/03/23 07:53> Interpretation: Normal sinus rhythm, rate of 74. There is a 1st degree AV block. There are a few PVCs present. There are no acute ischemic changes. Normal axis. <Barb Pierre MD - Last Filed: 12/03/23 07:53> Discharge Plan Discharge Clinical Impression: Syncope, Vaso vagal episode <Barb Pierre MD - Last Filed: 12/03/23 07:53> Patient Disposition: Home w/ Parent or Adult <Barb Pierre MD - Last Filed: 12/03/23 07:53> Condition: Improved <Barb Pierre MD - Last Filed: 12/03/23 07:53> Instructions: Syncope in Older Adults (ED) <Barb Pierre MD - Last Filed: 12/03/23 07:53> Additional Instructions: I am thankful that we did not see any signs of infection, stroke, heart attack or other abnormality. As we discussed, there are some electrical changes in the top part of the heart that could be contributing to these fainting spells. The episode this morning does sound like it was probably related to the episode in July as well. 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 Based on the findings on the Holter monitor, it may be best to speak with the warehouse worker about further ideas and consider a pacemaker if they think this is appropriate. Continue your usual medications in the meantime and drink plenty of fluids. This episode was most likely made worse by the fact that you slept poorly and were and quite a bit of pain. Often, going to the bathroom and the neurological changes that happen with that reflex make these episodes more likely to happen as well. Unfortunately, that is not under your control. I am glad that you seem be walking around safely now. I would like for her family to stay with you for the next couple of days. For pain related to the leg surgery, please make sure you are using Tylenol 650 mg every 6 hours and adding and the oxycodone half of a tablet up to every 6 hours as needed if the pain is severe. This certainly could be a partial seizure though the blood work is less suggestive of this. If the workup on the heart is not revealing, I would recommend that we consider seeing a neurologist to look into this further. If there any stroke-like symptoms or sudden worsening, please come back to the emergency department. <Barb Pierre MD - Last Filed: 12/03/23 07:53> Activity Level: Activity as Tolerated <Barb Pierre MD - Last Filed: 12/03/23 07:53> Activity as Tolerated <Concha Retana MD - Last Filed: 12/03/23 08:17> Discharge Diet: Regular <Barb Pierre MD - Last Filed: 12/03/23 07:53> Regular <Concha Retana MD - Last Filed: 12/03/23 08:17> Prescriptions: No Action cyanocobalamin (vitamin B-12) 1,000 mcg tablet 1,000 mcg PO DAILY cholecalciferol (vitamin D3) 25 mcg (1,000 unit) tablet 1,000 unit PO DAILY sennosides 8.6 mg tablet 8.6 mg PO DAILY Fish Oil 100-160-1,000 mg capsule 1 cap PO QDAY rosuvastatin 40 mg tablet 40 mg PO DAILY Qty: 90 3RF clopidogrel 75 mg tablet 75 mg PO DAILY Qty: 90 3RF niacinamide 500 mg tablet 1,000 mg PO QDAY fluoxetine 20 mg capsule 20 mg PO QAM Qty: 90 3RF diltiazem HCl 120 mg capsule,extended release 24hr 120 mg PO DAILY Qty: 90 3RF <Barb Pierre MD - Last Filed: 12/03/23 07:53> Follow Up/Referrals: Teagan Garcia MD [Primary Care Provider] - 7 Days (Holter monitor and follow-up. May benefit from cardiology consultation for possible pacemaker.) <Barb Pierre MD - Last Filed: 12/03/23 07:53> Stand Alone Forms: [facility] Info Instructions <Barb Pierre MD - Last Filed: 12/03/23 07:53>
[2023-12-03] MEDS: ACETAMINOPHEN 325 MG TABLET 650 MG PO (06:35)
[2023-12-03 06:37] LABS: Troponin, Point-of-Care* 0.01 ng/ml (0.01-0.04)
--- OUTSIDE RECORDS SUMMARY | 2023-12-03 06:43 | XMS_ITS ---
Author Name Unknown Organization [facility] Address [address] [place] [address] Care Team Providers Care It Desktop Support Specialist Name Role Phone Unavailable Unavailable Unavailable Surgery Details Not on file Complications Check Surgery Details section. Procedure Estimated Blood Loss Check Surgery Details section. Procedure Findings Check Surgery Details section. Procedure Specimens Taken Check Surgery Details section.
--- OUTSIDE RECORDS SUMMARY | 2023-12-03 06:43 | XMS_ITS | Clinical Summary ---
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 02/25/2012 03/18/2012 Immunizations [...] 02/13/2012 (Declined) Medical Devices Implanted Type Area Rn Family Device Identifier Shelf Expiration Date Model / Serial / Lot Valve Mitral 27mm Mosaic Tissue - [id number] Implanted:Qty: 1 on 10/09/2017 by Arian Alonzo MD at [facility] N/A: Mitral Valve Medtronic Cardiac Surgery 07/30/2022 [id number] / [id number] / Advance Directives Latest Code Status on File Code Status Date Activated Date Inactivated Comments Full Code 10/10/2017 8:10 AM 10/16/2017 4:15 PM Code Status History Code Status Date Activated Date Inactivated Comments Full Code 10/09/2017 6:00 AM 10/09/2017 11:27 AM Care Teams Baseball Umpire For Little League Relationship Specialty Start Date End Date Teagan Garcia MD [address] [facility] [place] [address] PCP - General Internal Medicine 10/28/17
--- OUTSIDE RECORDS SUMMARY | 2023-12-03 06:43 | XMS_ITS | Clinical Summary ---
Author Name Unknown Organization [facility] Address [address] [place] [address] Care Team Providers Care Teacher Advisor Name Role Phone Elsewhere, Pcp Primary Care Provider Unavailabl e Source Comments Patient records contain information from all sites at [facility]. For routine questions regarding patient records, call [phone] during business hours, M-F 8:00 AM - 5:00 PM Central Time. Record requests for emergency care only can be directed to [phone] at any time.[facility] Allergies No known active allergies Medications Medication [...] How often do you attend [facility] or yarsanism services? More than 4 times per year 05/25/2022 Do you belong to any clubs o r organizations such as rastafarian groups, unions, fraternal or athletic groups, or [...] and heating? Not hard at all 05/25/2022 [facility] [place] of Occupat ional Health - Occupational Stress [...] place to sleep or slept in a jail (including now)? No 05/25/2022 Nutrition Answer Date [...] history exists Medical Devices Implanted Type Area Commis Chef Device Identifier Shelf Expiration Date Model / Serial / Lot Cardiac Valve Prosthesis- Implanted:10/11 (Quantity not on file) Cardiac Valve Prosthesis Chest Care Teams Teacher Advisor Relationship Specialty Start Date End Date Elsewhere, Pcp PCP - General Internal Medicine 05/24/22
--- OUTSIDE RECORDS SUMMARY | 2023-12-03 06:43 | XMS_ITS | Referral Summary ---
Author Name Unknown Organization [facility] Address [address] [place] [address] Care Team Providers Care Application Security Developer Name Role Phone Elsewhere, Pcp Primary Care Provider Unavailabl e Source Comments Patient records contain information from all sites at [facility]. For routine questions regarding patient records, call [phone] during business hours, M-F 8:00 AM - 5:00 PM Central Time. Record requests for emergency care only can be directed to [phone] at any time.[facility] Allergies No known active allergies Medications Medication [...] week 05/25/2022 How often do you attend [facility] or protestant services? More than 4 times per year 05/25/2022 Do you belong to any clubs o r organizations such as pentecostal groups, unions, fraternal or athletic groups, or [...] and heating? Not hard at all 05/25/2022 [facility] [place] of Occupat ional Health - Occupational Stress [...] on file Medical Devices Implanted Type Area Flying Squad Salesperson Device Identifier Shelf Expiration Date Model / Serial / Lot Cardiac Valve Prosthesis- Implanted:10/11 (Quantity not on file) Cardiac Valve Prosthesis Chest Care Teams Application Security Developer Relationship Specialty Start Date End Date Elsewhere, Pcp PCP - General Internal Medicine 05/24/22
[2023-12-03 06:54] LABS: Basophils Absolute Auto 0.05 K/uL (0.00-0.30); Basophils Percent Auto 0.8 % (0.0-3.0); Eosinophils Absolute Auto 0.05 K/uL (0.00-0.50); Eosinophils Percent Auto 0.8 % (0.0-7.0); Hematocrit 39.5 % (33.0-51.0); Hemoglobin* 13.3 gm/dL (12.0-16.0); Immature Granulocytes Abs Auto 0.01 K/uL (0.00-0.30); Immature Granulocytes Pct Auto 0.2 %; Lymphocytes Absolute Auto 1.23 K/uL (0.90-2.90); Lymphocytes Percent Auto 20.7 % (20-44); Mean Corpuscular HGB Conc 34 gm/dL (32-36); Mean Corpuscular Hemoglobin 33 pg (26-34); Mean Corpuscular Volume 97 fL (80-100); Monocytes Percent Auto 6.6 % (0.0-11.0); Neutrophils Percent Auto 70.9 % (42.0-72.0); Platelet Count* 195 K/uL (140-440); RDW Coefficient of Variation % 12.1 % (11.5-15.5); Red Blood Count 4.06 m/uL (4.00-5.20); White Blood Count* 5.93 K/uL (4.50-11.00)
[2023-12-03 06:55] LABS: Albumin* 4.3 g/dL (3.3-5.0); Chloride* 101 mmol/L (96-114); Potassium* 3.4 mmol/L (3.6-5.1); Sodium* 135 mmol/L (135-149)
[2023-12-03 06:57] LABS: Anion Gap 9 mEq/L (7-15); Bilirubin Total* 1.3 mg/dL (0.1-1.5); Carbon Dioxide* 25 mmol/L (20-32); Creatinine* 0.6 mg/dL (0.5-1.5); Est. Creatinine Clearance* 30.92; Estimated Glomerular Filt Rate 88 ml/min
[2023-12-03 06:58] LABS: Alanine Aminotransferase* 28 U/L (4-35); Alkaline Phosphatase* 51 U/L (40-150); Aspartate Amino Transferase* 37 U/L (12-35); Blood Urea Nitrogen* 11 mg/dL (7-30); Calcium* 8.9 mg/dL (8.4-10.6); Glucose* 99 mg/dL (60-115); Total Protein* 6.8 g/dL (6.0-8.3)
[2023-12-03 07:08] LABS: Lactate* 0.9 mmol/L (0.5-1.9)
[2023-12-03 07:12] LABS: Slide Review Reflex No
[2023-12-03 07:24] LABS: PCR FLU A Negative PCR FLU A (Negative); PCR FLU B Negative PCR FLU B (Negative); PCR RSV Negative PCR RSV (Negative); SARS PCR* Negative SARS-CoV-2 (Negative)
[2023-12-03 07:31] LABS: Appearance Urine Clear (Clear); Bilirubin Urine Negative (Negative); Blood Urine Trace-intact (Negative); Color Urine Yellow (Yellow); Glucose Urine Negative (Negative); Ketones Urine Negative (Negative); Leukocyte Esterase Urine Negative (Negative); Nitrite Urine Negative (Negative); Protein Urine Negative (Negative); Specific Gravity Urine 1.015 (1.000-1.030); Urobilinogen Urine 0.2 (0.2-1.0); pH Urine 8.5 (5.0-8.5)
[2023-12-03 07:47] LABS: Bacteria Urine Few; Squamous Epithelial Cell Urine Few (None-Few); WBC Urine 0-2 (0-5)
[2023-12-03 07:51] LABS: NT Pro B Type NatriureticPept* 849 pg/mL; Troponin I* < 0.01 ng/mL (0.01-0.04)
--- NOTE | 2023-12-03 08:00 | ED.NURSE ---
Orthostatic VS ordered by Dr. Pierre and completed by video game script writer, see flowsheet. Hypotensive response noted, reported to Dr. Retana as Dr. Pierre is no longer here. Dr. Retana reviewing chart and will speak with patient. Patient reports light-headedness from sitting to standing but is able to complete the exam.
== END 2023-12-03 08:25 | disposition home or self-care (01) ==
PROVIDERS: Emergency Provider Family Medicine; PCP Internal Medicine
DX: R55 Syncope and collapse (principal)
CPT/HCPCS: 36415; 70450; 80053; 81003; 81015; 83605; 83880; 84484; 85025; 87086; 87631; 93005; 94761; 99284; 99285; A9270

== ENCOUNTER 2024-03-26 11:19 | Emergency (ER) | payer MEDICARE, BC, SELFPAY ==
--- OUTSIDE RECORDS SUMMARY | 2024-03-26 11:21 | XMS_ITS | Referral Summary ---
Author Name Unknown Organization [facility] Address [address] [place] [address] Care Team Providers Care Ccie Name Role Phone Elsewhere, Pcp Primary Care Provider Unavailabl e Source Comments Patient records contain information from all sites at [facility]. For routine questions regarding patient records, call [phone] during business hours, M-F 8:00 AM - 5:00 PM Central Time. Record requests for emergency care only can be directed to [phone] at any time.[facility] Allergies No known active allergies Medications Medication Sig Dispensed Refills Start Date End Date Status rosuvastatin (CRESTOR) 40 mg tablet Take 1 tablet by mouth daily. 02/23/2020 Active dilTIAZem (CARDIZEM) 120 mg tablet Take 120 mg by mouth daily. Active clopidogreL (PLAVIX) 75 mg tablet Take by mouth daily. 02/23/2019 Active sennosides (SENOKOT) 8.6 mg tablet Take 25.8 mg by mouth daily. Active cholecalciferol (VITAMIN D3) 25 mcg (1,000 Unit) capsule Take 1 capsule by mouth daily. 02/23/2020 Active diphenhydrAMINE (BENADRYL) 25 mg capsule Take 25 mg by mouth as needed. 10/04/2017 Active acetaminophen (TYLENOL) 325 mg tablet Take 325 mg by mouth as needed for pain. Used Rarely Active Hospital, Clinic, or Other Facility Administered [...] week 05/25/2022 How often do you attend [facility] or jewish services? More than 4 times per year 05/25/2022 Do you belong to any clubs o r organizations such as pentecostalism groups, unions, fraternal or athletic groups, or [...] heating? Not hard at all 05/25/2022 [facility]ational Stress Questionnaire Answer Date [...] place to sleep or slept in a halfway (including now)? No 05/25/2022 Nutrition Answer Date [...] on file Medical Devices Implanted Type Area Shoe Associate Device Identifier Shelf Expiration Date Model / Serial / Lot Cardiac Valve Prosthesis- Implanted:10/11 (Quantity not on file) Cardiac Valve Prosthesis Chest Care Teams Ccie Relationship Specialty Start Date End Date Elsewhere, Pcp PCP - General Internal Medicine 05/24/22
--- OUTSIDE RECORDS SUMMARY | 2024-03-26 11:21 | XMS_ITS | Clinical Summary ---
Author Name Unknown Organization [facility] Address [place], [place] [address] Care Team Providers Care Senior Analytic Consultant Name Role Phone Teagan Garcia MD Primary Care Provider +1- [phone] Allergies No known active allergies Medications Medication [...] every evening and 2 tablets every evening Active clopidogrel (PLAVIX) 75 mg tablet Take by mouth once daily. 3 02/23/2019 Active lactobacillus combination no.4 (PROBIOTIC) 3 billion cell cap Take by mouth once daily. 0 02/25/2019 Active rosuvastatin (CRESTOR) 20 mg tablet Take 1 tablet by mouth once daily. 02/23/2020 Active cholecalciferol (VITAMIN D3) 1,000 unit capsule Take 1 capsule by mouth once daily. 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 02/25/2012 03/18/2012 Immunizations [...] 07/03/2011 05/08/2011 Medicare Wellness for age 65+ 09/29/2017, 09/26/2015, 09/21/2014, Additional history exists Depression screening for age 12+ 10/29/2018 10/29/2017, 09/04/2017, 09/28/2016 BMI (ht and wt on same day) for age 18+ 02/26/2020 02/25/2019, 08/06/2018, 04/30/2018, Additional history exists Tetanus booster 08/08/2021 08/08/2011 COVID-19 vaccine series ( season) 2023 07/30/2022, 09/05/2021, 01/07/2021, Additional history exists Influenza for age 65+ 07/12/2024 09/09/2017 , 08/17/2016, 08/17/2016, Additional history exists Tdap Completed 08/08/2011 Pneumococcal series for age 65+ Completed 09/28/2016, 09/28/2016, 09/20/2014, Additional history exists DEXA/DXA scan for age 65+ Completed 2016, 02/13/2012 (Declined) Medical Devices Implanted Type Area Sow Farm Manager Device Identifier Shelf Expiration Date Model / Serial / Lot Valve Mitral 27mm Mosaic Tissue - [id number] Implanted:Qty: 1 on 10/09/2017 by Arian Alonzo MD at [facility] N/A: Mitral Valve Medtronic Cardiac Surgery 07/30/2022 [id number] / [id number] / Procedures Procedure Name Priority Date/Time Associated Diagnosis Comments XR DXA BONE DENSITY 1 SITE AXIAL AND 1 SITE PERIPHERAL Routine 03/21/2017 1:37 PM CDT Asymptomatic postmenopausal state from Last 3 Months or Most Recently Relevant to Health Maintenance Results * (ABNORMAL) XR DXA BONE DENSITY 1 SITE AXIAL AND 1 SITE PERIPHERAL (03/21/2017 1:37 PM CDT) Anatomical Region Laterality Modality LUMBAR SPINE Other Narrative 03/26/2017 7:54 AM CDT Please see scanned document for results of this study. Barb Pierre MD DEXA from Last 3 Months or Most Recently Relevant to Health Maintenance Advance Directives * Full Code (Latest Code Status on File) Date Activated Date Inactivated Comments 10/10/2017 8:10 AM 10/16/2017 4:15 PM * Full Code Date Activated Date Inactivated Comments 10/09/2017 6:00 AM 10/09/2017 11:27 AM Care Teams Senior Analytic Consultant Relationship Specialty Start Date End Date Teagan Garcia MD [address] [facility] [address] PCP - General Internal Medicine 10/28/17
--- OUTSIDE RECORDS SUMMARY | 2024-03-26 11:21 | XMS_ITS | Clinical Summary ---
Author Name Unknown Organization [facility] Address [address] [place] [address] Care Team Providers Care Human Resources Representative Name Role Phone Elsewhere, Pcp Primary Care Provider Unavailabl e Source Comments Patient records contain information from all sites at [facility]. For routine questions regarding patient records, call [phone] during business hours, M-F 8:00 AM - 5:00 PM Central Time. Record requests for emergency care only can be directed to [phone] at any time.[facility] Allergies No known active allergies Medications [...] How often do you attend [facility] or mormonism services? More than 4 times per year 05/25/2022 Do you belong to any clubs o r organizations such as advent groups, unions, fraternal or athletic groups, or [...] and heating? Not hard at all 05/25/2022 [facility] [place] [facility] - [facility]ational Stress [...] place to sleep or slept in a snf (including now)? No 05/25/2022 Nutrition Answer Date [...] PHQ-2) 11/11/2023 Fall Risk Screen (Annual) 11/11/2023 COVID-19 Vaccine (6 - 2022-2 4 season) 2023 08/10/2023, 07/30/2022, 09/05/2021, Additional history exists DTaP,Tdap,and Td Vaccines (5 - Td or Tdap) 10/02/2031 10/02/2021, 08/08/2011, 10/31/2005, Additional history exists Pneumococcal vaccine (65+ years) Completed 09/28/2016, 09/20/2014, 11/11/2006, Additional history exists Zoster Vaccines Completed 07/23/2021, 07/0 06/2021, 05/08/2011 Influenza Vaccine Completed 08/10/2023, , 09/05/2021, Additional history exists Medical Devices Implanted Type Area Informatica Architect Device Identifier Shelf Expiration Date Model / Serial / Lot Cardiac Valve Prosthesis- Implanted:10/11 (Quantity not on file) Cardiac Valve Prosthesis Chest Care Teams Human Resources Representative Relationship Specialty Start Date End Date Elsewhere, Pcp PCP - General Internal Medicine 05/24/22
--- OUTSIDE RECORDS SUMMARY | 2024-03-26 11:22 | XMS_ITS ---
Author Name Unknown Organization [facility] Address [address] [place] [address] Care Team Providers Care Drum Puller Name Role Phone Unavailable Unavailable Unavailable Surgery Details Not on file Complications Check Surgery Details section. Procedure Estimated Blood Loss Check Surgery Details section. Procedure Findings Check Surgery Details section. Procedure Specimens Taken Check Surgery Details section.
[2024-03-26 11:28] VITALS: BP 200/99; PULSE 76; RESP 18; TEMP 36.2; O2SAT 99; BMI 16.9
--- OUTSIDE RECORDS SUMMARY | 2024-03-26 11:50 | XMS_ITS | Clinical Summary ---
Author Name Unknown Organization [facility] Address [address] [place] [address] Care Team Providers Care Unclaimed Property Officer Name Role Phone Elsewhere, Pcp Primary Care Provider Unavailabl e Source Comments Patient records contain information from all sites at [facility]. For routine questions regarding patient records, call [phone] during business hours, M-F 8:00 AM - 5:00 PM Central Time. Record requests for emergency care only can be directed to [phone] at any time.[facility] Allergies No known active allergies Medications [...] 05/25/2022 How often do you attend [facility] or lutheran services? More than 4 times per year 05/25/2022 Do you belong to any clubs o r organizations such as samaritan groups, unions, fraternal or athletic groups, or [...] at all 05/25/2022 [facility] [place] [facility] - Occupational Stress Questionnaire Answer Date [...] place to sleep or slept in a correction (including now)? No 05/25/2022 Nutrition Answer Date [...] history exists Medical Devices Implanted Type Area Pet Caregiver Device Identifier Shelf Expiration Date Model / Serial / Lot Cardiac Valve Prosthesis- Implanted:10/11 (Quantity not on file) Cardiac Valve Prosthesis Chest Care Teams Unclaimed Property Officer Relationship Specialty Start Date End Date Elsewhere, Pcp PCP - General Internal Medicine 05/24/22
--- OUTSIDE RECORDS SUMMARY | 2024-03-26 11:50 | XMS_ITS | Referral Summary ---
Author Name Unknown Organization [facility] Address [address] [place] [address] Care Team Providers Care Shipwright Apprentice Name Role Phone Elsewhere, Pcp Primary Care Provider Unavailabl e Source Comments Patient records contain information from all sites at [facility]. For routine questions regarding patient records, call [phone] during business hours, M-F 8:00 AM - 5:00 PM Central Time. Record requests for emergency care only can be directed to [phone] at any time.[facility] Allergies No known active allergies Medications [...] week 05/25/2022 How often do you attend [facility] or sabianist services? More than 4 times per year 05/25/2022 Do you belong to any clubs o r organizations such as anabaptism groups, unions, fraternal or athletic groups, or [...] and heating? Not hard at all 05/25/2022 [facility] [place] [facility] - Occupational Stress Questionnaire Answer [...] on file Medical Devices Implanted Type Area Biometrics Instructor Device Identifier Shelf Expiration Date Model / Serial / Lot Cardiac Valve Prosthesis- Implanted:10/11 (Quantity not on file) Cardiac Valve Prosthesis Chest Care Teams Shipwright Apprentice Relationship Specialty Start Date End Date Elsewhere, Pcp PCP - General Internal Medicine 05/24/22
--- OUTSIDE RECORDS SUMMARY | 2024-03-26 11:50 | XMS_ITS | Clinical Summary ---
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 02/25/2012 03/18/2012 Immunizations [...] 02/13/2012 (Declined) Medical Devices Implanted Type Area Human Resource Internship Device Identifier Shelf Expiration Date Model / Serial / Lot Valve Mitral 27mm Mosaic Tissue - [id number] Implanted:Qty: 1 on 10/09/2017 by Arian Alonzo MD at [facility] N/A: Mitral Valve [employer] Cardiac Surgery 07/30/2022 [id number] / [id number] / Procedures Procedure Name Priority Date/Time Associated [...] 6:00 AM 10/09/2017 11:27 AM Care Teams Lead Performance Support Analyst Relationship Specialty Start Date End Date Teagan Garcia MD [address] [facility] [place] [address] PCP - General Internal Medicine 10/28/17
--- OUTSIDE RECORDS SUMMARY | 2024-03-26 11:50 | XMS_ITS ---
Author Name Unknown Organization [facility] Address [address] [place] [address] Care Team Providers Care Clinical Trials Manager Name Role Phone Unavailable Unavailable Unavailable Surgery Details Not on file Complications Check Surgery Details section. Procedure Estimated Blood Loss Check Surgery Details section. Procedure Findings Check Surgery Details section. Procedure Specimens Taken Check Surgery Details section.
--- NOTE | 2024-03-26 12:04 | ED.GENADULT ---
HPI - General Adult General Date Seen: 03/26/24 Chief complaint: Fall/Minor Trauma Stated complaint: fall Time Seen by Provider: 03/26/24 11:23 Source: patient, family, RN notes reviewed and old records reviewed Mode of arrival: ambulatory Limitations: no limitations History of Present Illness HPI narrative: Patient is an 83-year-old woman here with her [id number]-sk-gyx for evaluation of a fall yesterday. Lives at [facility] in independent living, but she does have a Life flank button and she passed that after she fell for assistance with getting up. She does not feel that she is significantly injured aside from skin tears on her right arm. She does have a history of 2 syncopal events 1 in November and 1 last July, she was evaluated after both of those, I have reviewed the records from November. She saw her primary doctor after that. Essentially no clear explanation was found, Holter was considered but ultimately decided against. She says yesterday she is not sure why she fell but she does not think she lost consciousness. She generally gets around quite well, does not use a walker or cane. She denies any recent illness, fevers, vomiting, diarrhea, black or bloody stools, chest pain, palpitations, shortness of breath. She is on Plavix but has not had difficulty with bleeding from her skin tears. Denies hitting her head, again no loss of consciousness, no neck pain. She does have some thoracic back pain but she says this is chronic and no worse than usual. Related Data Home Medications Medication Instructions Recorded Confirmed cholecalciferol (vitamin D3) 25 1,000 unit PO DAILY 07/24/22 03/26/24 mcg (1,000 unit) tablet cyanocobalamin (vitamin B-12) 1,000 mcg PO DAILY 07/24/22 03/26/24 1,000 mcg tablet sennosides 8.6 mg tablet 8.6 mg PO DAILY 07/24/22 12/12/23 omega 4-hav-fas-fish oil 100 1 cap PO QDAY 02/26/23 12/12/23 mg-160 mg-1,000 mg capsule (Fish Oil) niacinamide 500 mg tablet 1,000 mg PO QDAY 11/26/23 12/12/23 Previous Rx's Medication Instructions Recorded clopidogrel 75 mg tablet 75 mg PO DAILY #90 tabs 08/12/23 rosuvastatin 40 mg tablet 40 mg PO DAILY #90 tabs 08/12/23 diltiazem HCl 120 mg 120 mg PO DAILY #90 caps 09/10/23 capsule,extended release 24 hr fluoxetine 20 mg capsule 20 mg PO QAM #90 caps 11/26/23 Allergies Allergy/AdvReac Type Severity Reaction Status Date / Time No Known Drug Allergies Allergy Verified 12/19/23 10:20 Review of Systems Status of ROS: Reports: 10 or more systems reviewed and unremarkable except as noted in History and below PFSH PFS Surgical History History of melanoma excision ?Z98.890 - Other specified postprocedural states (ICD-10) ?Z85.820 - Personal history of malignant melanoma of skin (ICD-10) History of total hip replacement (2011) ?Z96.649 - Presence of unspecified artificial hip joint (ICD-10) History of tonsillectomy ?Z90.89 - Acquired absence of other organs (ICD-10) History of squamous cell carcinoma excision (2002) ?Z98.890 - Other specified postprocedural states (ICD-10) ?Z85.9 - Personal history of malignant neoplasm, unspecified (ICD-10) History of repair of rotator cuff (1984) ?Z98.890 - Other specified postprocedural states (ICD-10) History of mitral valve replacement (2016) ?Z95.2 - Presence of prosthetic heart valve (ICD-10) History of hysterectomy ?Z90.710 - Acquired absence of both cervix and uterus (ICD-10) History of cataract extraction ?Z98.49 - Cataract extraction status, unspecified eye (ICD-10) Social History Narrative: lives alone. . Non-smoker. What is your current living situation?: declined to answer Problems where you live: declined to answer In the past 12 months, utilities in danger of being shut off: declined to answer In past 12 months, lack of transportation kept you from medical appts, meetings, work, or getting things needed for daily living: declined to answer In the past 12 mos, have been you worried that your food would run out before you had money to buy more?: declined to answer In the past 12 mos, the food you bought just didn't last and you didn't have money to buy more?: declined to answer Smoking Status: Never smoker Do you use any of these nicotine containing products: None Second hand tobacco smoke exposure: No How often do you have a drink containing alcohol: never How often do you have six or more drinks on one occasion: Never AUDIT-C Alcohol total score: 0 Non-prescribed substance use: denies use How often does anyone, including family, friends and others, physically hurt you: decline to answer How often does anyone, including family, friends and others, insult or talk down to you: decline to answer How often does anyone, including family, friends and others, threaten you with harm: decline to answer How often does anyone, including family, friends and others, scream or curse at you: decline to answer Little interest or pleasure in doing things: not at all Feeling down, depressed, or hopeless: several days service: No Exam Narrative: Exam Narrative: Vital signs as noted above. In general, an alert, well-appearing patient. Head: Normocephalic, atraumatic. Eyes: Pupils are equal reactive. Extraocular movements are full. Conjunctivae are normal. ENT: Mucous membranes are moist. Throat is normal. Neck: Supple without lymphadenopathy. Heart: Regular rate and rhythm. No murmur or rub. Lungs: Clear bilaterally. No increased work of breathing, crackles or wheezes. Abdomen: Soft and nontender. No organomegaly. Extremities: Well perfused. No edema. No calf tenderness. Pulses intact. On the right arm she has 1 somewhat complex skin tear on the forearm and then a more linear simple tear on the distal forearm. Bleeding is controlled. No bony tenderness or deformity. Neurologic: Patient is alert and oriented to person and place. Speech is fluent. Face is symmetric. Moves all extremities equally. Affect: Normal. Skin: Warm and dry. Well perfused. Const: Vital Signs, click to edit/add: Vital Signs - 24 hr 03/26/24 11:28 Temperature 97.2 F L Pulse Rate [Left P ulse Oximeter] 76 Respiratory Rate 18 Blood Pressure [Le ft Upper Arm] 200/99 H Pulse Oximetry 99 Oxygen Delivery Me thod Room Air Documenting provider has reviewed patient's vital signs: yes Course Course ED Course: Patient is 83 with prior syncope presenting after fall yesterday without associated syncope according to her report. I ordered an EKG and some basic labs, will address skin tears. She seems to have a lot of discomfort with any manipulation of those so will place some let and then can get those dressed. EKG by my review showed a sinus rhythm, first-degree AV block with a DC of 268 milliseconds, normal are QT corrected of 486 milliseconds. Incomplete right bundle-branch block. Compared to EKG in November of this year, the QRS is slightly elongated at 98 milliseconds verses 83 milliseconds. She has Q-waves present in V2 and V3, overall morphology in V2 and 3 has changed since November. Troponin was checked however was normal. Other labs notable for on normal white blood cell count of 6.6, hemoglobin is normal at 12.6, electrolytes normal, TSH was 2.1. I was able to clean up the skin tear on her right arm and replace the skin over the exposed tissue. She tolerated this well. Dressing applied by the nurse. Recommend routine wound care, return for signs of infection. If continued problems with syncope and or falls, would discuss further with primary care. Did recommend that she have a walker or cane available if she is having days where she feels less steady. She is eager to go home. Vital Signs Vital signs: Initial Vital Signs Temperature 97.2 F L 03/26/24 11:28 Temperature Source Temporal Artery Scan 03/26/24 11:28 Pulse Rate 76 03/26/24 11:28 Pulse Rhythm Regular 03/26/24 11:28 Pulse Strength 3+ Normal 03/26/24 11:28 Respiratory Rate 18 03/26/24 11:28 Blood Pressure 200/99 H 03/26/24 11:28 Blood Pressure Mean 132 H 03/26/24 11:28 Blood Pressure Position Sitting 03/26/24 11:28 Pulse Oximetry 99 03/26/24 11:28 Oxygen Delivery Method Room Air 03/26/24 11:28 Vital Signs Temperature 97.2 F L 03/26/24 11:28 Pulse Rate 76 03/26/24 11:28 Respiratory Rate 18 03/26/24 11:28 Blood Pressure 200/99 H 03/26/24 11:28 Pulse Oximetry 99 03/26/24 11:28 Oxygen Delivery Method Room Air 03/26/24 11:28 Temperature 97.2 F L 03/26/24 11:28 Pulse Rate 76 03/26/24 11:28 Respiratory Rate 18 03/26/24 11:28 Blood Pressure 200/99 H 03/26/24 11:28 Pulse Oximetry 99 03/26/24 11:28 Oxygen Delivery Method Room Air 03/26/24 11:28 Medical Decision Making Lab Data Labs: Lab Results 03/26/24 Range/Units 11:58 WBC 6.62 (4.50-11.00) K/uL RBC 3.84 L (4.00-5.20) m/uL Hgb 12.6 (12.0-16.0) gm/dL Hct 37.7 (33.0-51.0) % MCV 98 (80-100) fL MCH 33 (26-34) pg MCHC 33 (32-36) gm/dL RDW Coeff of Katia 11.9 (11.5-15.5) % Plt Count 246 (140-440) K/uL Neut % (Auto) 63.7 (42.0-72.0) % Lymph % (Auto) 25.5 (20-44) % Caldwell % (Auto) 8.5 (0.0-11.0) % Eos % (Auto) 0.6 (0.0-7.0) % Baso % (Auto) 0.5 (0.0-3.0) % Neut # (Auto) 4.22 (1.7-7.0) K/uL Lymph # (Auto) 1.69 (0.90-2.90) K/uL Caldwell # (Auto) 0.60 (0.00-0.90) K/UL Eos # (Auto) 0.04 (0.00-0.50) K/uL Baso # (Auto) 0.03 (0.00-0.30) K/uL Abs Immat Gran (auto) 0.08 (0.00-0.30) K/uL Imm/Tot Granulo (auto) 1.2 % Sodium 138 (135-149) mmol/L Potassium 3.7 (3.6-5.1) mmol/L Chloride 103 (96-114) mmol/L Carbon Dioxide 28 (20-32) mmol/L Anion Gap 7 (7-15) mEq/L BUN 15 (7-30) mg/dL Creatinine 0.6 (0.5-1.5) mg/dL Estimated Creat Clear 30.92 Estimated GFR 88 ml/min Glucose 87 (60-115) mg/dL Calcium 9.2 (8.4-10.6) mg/dL Troponin I < 0.01 L (0.01-0.04) ng/mL TSH 2.120 (0.270-4.200) uIU/mL Discharge Plan Discharge Clinical Impression: Skin tear of right forearm without complication, Fall Patient Disposition: Home w/ Parent or Adult Condition: Improved Instructions: Skin Tear (ED) Additional Instructions: Routine wound care, return for signs of infection. Remove Tegaderm in 7-10 days. Labs are normal. If frequent falls and or fainting continued to be a problem, please follow up with primary care. Consider use of cane or walker as needed. Prescriptions: No Action cyanocobalamin (vitamin B-12) 1,000 mcg tablet 1,000 mcg PO DAILY cholecalciferol (vitamin D3) 25 mcg (1,000 unit) tablet 1,000 unit PO DAILY sennosides 8.6 mg tablet 8.6 mg PO DAILY Fish Oil 100-160-1,000 mg capsule 1 cap PO QDAY rosuvastatin 40 mg tablet 40 mg PO DAILY Qty: 90 3RF clopidogrel 75 mg tablet 75 mg PO DAILY Qty: 90 3RF niacinamide 500 mg tablet 1,000 mg PO QDAY fluoxetine 20 mg capsule 20 mg PO QAM Qty: 90 3RF diltiazem HCl 120 mg capsule,extended release 24hr 120 mg PO DAILY Qty: 90 3RF Follow Up/Referrals: Teagan Garcia MD [Primary Care Provider] - Stand Alone Forms: [facility] Info Inst[facility]
[2024-03-26 12:27] LABS: Basophils Absolute Auto 0.03 K/uL (0.00-0.30); Basophils Percent Auto 0.5 % (0.0-3.0); Eosinophils Absolute Auto 0.04 K/uL (0.00-0.50); Eosinophils Percent Auto 0.6 % (0.0-7.0); Hematocrit 37.7 % (33.0-51.0); Hemoglobin* 12.6 gm/dL (12.0-16.0); Immature Granulocytes Abs Auto 0.08 K/uL (0.00-0.30); Immature Granulocytes Pct Auto 1.2 %; Lymphocytes Absolute Auto 1.69 K/uL (0.90-2.90); Lymphocytes Percent Auto 25.5 % (20-44); Mean Corpuscular HGB Conc 33 gm/dL (32-36); Mean Corpuscular Hemoglobin 33 pg (26-34); Mean Corpuscular Volume 98 fL (80-100); Monocytes Percent Auto 8.5 % (0.0-11.0); Neutrophils Absolute Auto 4.22 K/uL (1.7-7.0); Neutrophils Percent Auto 63.7 % (42.0-72.0); Platelet Count* 246 K/uL (140-440); RDW Coefficient of Variation % 11.9 % (11.5-15.5); Red Blood Count 3.84 m/uL (4.00-5.20); White Blood Count* 6.62 K/uL (4.50-11.00)
[2024-03-26 12:35] LABS: Chloride* 103 mmol/L (96-114); Potassium* 3.7 mmol/L (3.6-5.1); Sodium* 138 mmol/L (135-149)
[2024-03-26 12:36] LABS: Slide Review Reflex No
[2024-03-26 12:37] LABS: Creatinine* 0.6 mg/dL (0.5-1.5); Est. Creatinine Clearance* 30.92; Estimated Glomerular Filt Rate 88 ml/min
[2024-03-26 12:38] LABS: Anion Gap 7 mEq/L (7-15); Blood Urea Nitrogen* 15 mg/dL (7-30); Carbon Dioxide* 28 mmol/L (20-32); Glucose* 87 mg/dL (60-115)
[2024-03-26 12:39] LABS: Calcium* 9.2 mg/dL (8.4-10.6)
[2024-03-26 14:01] LABS: Troponin I* < 0.01 ng/mL (0.01-0.04)
== END 2024-03-26 14:10 | disposition home or self-care (01) ==
PROVIDERS: Emergency Provider Emergency Medicine; PCP Internal Medicine
DX: S51.811A Laceration without foreign body of right forearm, initial encounter (principal); W19.XXXA Unspecified fall, initial encounter
CPT/HCPCS: 36415; 80048; 84443; 84484; 85025; 93005; 99283; 99284

== ENCOUNTER 2024-07-03 10:00 | Outpatient (RCR) | payer MEDICARE, BC, SELFPAY ==
--- NOTE | 2024-04-23 16:59 | PT.OPEX ---
PT [place] Outpatient Eval PT [facility] Outpatient Eval Start: 04/23/24 13:45 Freq: Status: Active Protocol: Document 04/23/24 13:46 [facility] (Rec: 04/23/24 14:54 [facility] [id number]) E-signed By Baldemar Weber, PT Physical Therapy Outpatient Evaluation Insurance Information Recert Due Date 07/26/24 Insurance Name Medicare B Medical Diagnosis Cervicalgia M54.2 Headache, unspecified Headache R51.9 Treating Diagnosis Cervicalgia M54.2 Headache, unspecified R51.9 Unsteadiness on feet R26.[address] Mike Molina (Dr. Bairon Garcia is her PCP) Subjective Subjective Pt presents with neck pain for months & months (daughter in law reports at least two years) and it goes up into her head. No trauma but she has had some falls since that time . Daughter in law, Alexandra, present with patient. Per Alexandra, x-ray of cervical spine shows arthritis. Head imaging rules out any brain bleed/pathology. She did see an MD at [place] who thought her CUNNINGHAM may be due to migraines. Pt denies UE numbness, diplopia, nausea/vomiting, auras. [place]AM pattern: fairly constant, intensity fluctuates but never goes away completely. C[place]AM mostly in the back but sometimes go to the front. Pt describes her head as feeling heavy with pressure through the front of her face. It does not feel like sinuses to her. Side sleeper, sleeps comfortably Pt lives alone at [facility] x 1 month. She wears a lifeline as she has periodic falls. She did have a fall straight backward onto concrete last fall 2022. She went to ED and got checked out . Per pt, she does not know what causes her falls as she just goes down. Aggravating: mornings are the worst, it improves throughout the day, head movement, heavy lifting, PMH: Alvarez ISAIAS, skin cancer, heart condition/open heart surgery for valve replacement (6-7 years ago) F[facility] is scheduled to see her PCP, Dr. Teagan Garcia, 04/28/24 Pain Comments 6-08/20 Current: 4-510 Takes extra strength Tylenol for pain, prn. Also uses heating pads Date of Last Physician Visit 04/21/24 Date of Next Physician Visit 04/28/24 Current Work Status Retired Preferred Name [facility] Precautions Treatment Precautions/Contraindications Pt. demo mild memory deficits as cqiqzwic-[id number] had to clarify a few historical facts Objective Other/Pertinent Objective Posture: flattened cervical and thoracic spine w/ prominent C5, C7/T1 Cervical: AROM *pain at lower c-spine Flexion: 40 deg*, end range stretch pain Extension: 50 deg*, end range sharp pain Side bend: R: 18 deg * L: 22 deg * Rotation: R: 50 deg * L: 30 deg * UEs: AROM WNL Strength: grossly 4/5, no focal weakness Cervical: grossly 4/5 except R SB 3+/5 painful, Flexion 4-/5 , rotation L 4-/5 Special tests: Spurling: + bilaterally Palpation: negative for midline spine pain, except over C7/T1 + TTP R>L u trap and scalenes + TTP upper thoracic psps Nystagmus: possible mild nystagmus w gaze to right Pt did not tolerate lying supine so unable to perform manual assessment in this position Functional Test Performed & Score NDI: 42% disability 4 Stage balance test: Feet together: 30 seconds, 1/2 tandem stance: 30 sec with close SBA due to pt fear of falling tandem stance: needed assist to get into position, unable to hold on her own >1 second SLS: unable/unwilling to attempt - high fall risk DLS: EO 30 sec, no way EC 5 sec w/ moderate posterior sway , needing physical assist to upright Assessment Assessment/Impression 83 year old female presents with chronic and up to severe neck pain with headaches. A recent x-ray shows multilevel cervical spondylosis with osteophyte formation causing up to moderate spinal canal narrowing C5-6 and advanced foraminal stenosis L C4/5, R C5/6. In light of this and given her evaluation findings, this seems the likely cause of her neck pain with headaches being primarily cervicogenic in nature. However, I am concerned about her symptoms of dizziness, periodic falls without mechanical cause (low blood pressure?, brief loss of consciousness?) and significantly impaired balance . With eyes closed, she loses balance backward/moderate sway indicating sensory/posterior column impairment). I recommend continued skilled PT for gently progressive cervical stabilization and postural strengthening exercises along with balance ex. She would also benefit from a PT evaluation for vertigo. Primary Functional Limitations pain accompanies most tasks. heavy lifting, pain worst in the AM, head movement (causes pain and dizziness) Plan of Care Rehabilitation Potential Fair Physical Therapy Goals In 4-6 weeks, patient will: 1) Demo 10 degree increase in painfree AROM for sidebend and rotation, bilaterally to improve driving ability 2) Report neck pain max of 7/ 10 on a given day In 8-12 weeks, patient will: 3) Decrease NDI score by at least 5 points (MCID) to demo improved functional mobility 4) Report neck/C[place]AM pain max of 5/10 on a given day 5) Be I with HEP and self- management of residual symptoms Coordination/Communication With Referral Source Treatment Plan/Direct Interventions Manual Therapy,Neuromuscular Re-ed,Self-Care/Home Management,Therapeutic Activities,Therapeutic Exercises Direct Interventions Clarification gentle cervical ROM, cervical Comments stab/postural strength, balance Frequency/Duration 1x/week for 8-12 weeks Patient Will Be Discharged From Therapy Completion of LTG(s), Independent w/HEP, Independently Progressing Evaluation Billing Untimed Code Treatment Minutes 30 Complexity Moderate Certification Information Initial Certification Date 04/23/24 Ending Certification Date 07/16/24 Provider Signature Required Yes Provider Signature Shows Agreement With POC & Medical Necessity Physician NPI Number Write NPI# Here Physician Comment/Change : Physician Signature & Date Requested Please Sign/Date Here
== END 2024-07-10 08:21 | disposition home or self-care (01) ==
PROVIDERS: PCP Internal Medicine; Visit Provider Family Medicine
DX: M54.2 Cervicalgia (principal); R51.9 Headache, unspecified; Z51.89 Encounter for other specified aftercare
CPT/HCPCS: 97110; 97112; 97140; 97162

== ENCOUNTER 2024-10-31 19:59 | Emergency (ER) | payer MEDICARE, BC, SELFPAY ==
[2024-10-31 20:02] VITALS: BP 167/70; PULSE 83; RESP 16; TEMP 36.7; O2SAT 99; BMI 17.8
--- NOTE | 2024-10-31 20:18 | CRLHL7_ITS ---
For Patients: As a result of the Century Cures Act, medical imaging exams and procedure reports are released immediately into your electronic medical record. You may view this report before your referring provider. If you have questions, please contact your health care provider. Indication: Fall, right-sided chest pain, hip pain Technique: Noncontrast CT of the chest, abdomen, and pelvis with multiplanar reformats. Comparison: CT chest performed 07/24/2021 Findings: Chest: Lungs: No consolidation. No effusion. No pneumothorax. Scattered pulmonary nodules, overall unchanged from prior examination. Mediastinum: No acute abnormality appreciated. Calcified coronary arterial and aortic atherosclerosis. Postoperative changes noted. Lymph nodes: No gross lymphadenopathy. Soft tissues: No acute abnormality appreciated. Bones: No acute abnormality appreciated. Median sternotomy. Degenerative changes of the spine and pelvis. Abdomen and Pelvis: Hepatobiliary: No significant parenchymal abnormality is appreciated. Spleen: Unremarkable. Pancreas: No acute abnormality appreciated. Adrenal glands: No acute abnormality appreciated. Kidneys: No significant parenchymal abnormality appreciated. No visualized calculi. No hydronephrosis. Bowel: Partially obscured by streak artifact. No obstruction. No focal perienteric or pericolonic stranding is appreciated. The appendix is visualized and appears unremarkable. Vascular: Calcified atherosclerosis. Lymph nodes: No gross lymphadenopathy. Peritoneum: No free air. No free fluid. : Largely obscured by streak artifact. Soft tissues: No acute abnormality appreciated. Bones: No acute fracture. No lytic or blastic lesion. Bilateral hip replacements. Degenerative changes of the spine. Impression: Chronic findings as above with no acute abnormality appreciated. Please note that all CT scans at this facility use dose modulation, iterative reconstruction, and/or weight-based dosing when appropriate to reduce radiation dose to as low as reasonably achievable. Dictated by Ankur Mattson MD @ 10/31/2024 9:15:42 PM (Electronically Signed)
--- NOTE | 2024-10-31 20:20 | ED.GENADULT ---
HPI - General Adult General Chief complaint: Rib Pain Stated complaint: Fell on right side Time Seen by Provider: 10/31/24 20:14 History of Present Illness HPI narrative: Patient is a 84-year-old woman who was in the bathroom tonight and fell between the toilet and the tub. Patient was unable to get up. She lives with someone him Cierra who was able to rescue her by calling for family. Family reasonable to get her up and brought to the emergency room. She has pain in the mid axillary line on the right as well as pain in the right hip. Patient did not lose consciousness. She had no palpitations. She simply stumbled. She did not hit her head. She has no neck or head pain. Her sensorium is unchanged although she has a history of dementia and failure to thrive as well as frailty. She has no skin breakdown. Patient states her pain is moderate primarily in the right side of her chest. Related Data Home Medications ?Medication ?Instructions ?Recorded ?Confirmed cholecalciferol (vitamin D3) 25 1,000 unit PO DAILY 07/24/22 07/21/24 mcg (1,000 unit) tablet cyanocobalamin (vitamin B-12) 1,000 mcg PO DAILY 07/24/22 07/21/24 1,000 mcg tablet sennosides 8.6 mg tablet 8.6 mg PO DAILY 07/24/22 07/21/24 omega 2-rzz-hda-fish oil 100 1 cap PO QDAY 02/26/23 07/21/24 mg-160 mg-1,000 mg capsule (Fish Oil) Previous Rx's ?Medication ?Instructions ?Recorded fluoxetine 20 mg capsule 20 mg PO QAM #90 caps 11/26/23 clopidogrel 75 mg tablet 75 mg PO DAILY #90 tabs 08/17/24 rosuvastatin 40 mg tablet 40 mg PO DAILY #90 tabs 08/17/24 diltiazem HCl 120 mg 120 mg PO DAILY #90 caps 09/08/24 capsule,extended release 24 hr Allergies Allergy/AdvReac Type Severity Reaction Status Date / Time No Known Drug Allergies Allergy Verified 07/21/24 09:59 Review of Systems Status of ROS: Reports: 10 or more systems reviewed and unremarkable except as noted in History and below PFSH PFS Surgical History 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) ?Z96.642 - Presence of left artificial hip joint (ICD-10) History of total right hip replacement (02/20/12) ?Z96.641 - Presence of right artificial hip joint (ICD-10) History of phacoemulsification of cataract of both eyes with intraocular lens implantation ?Z98.41 - Cataract extraction status, right eye (ICD-10) ?Z98.42 - Cataract extraction status, left eye (ICD-10) ?Z96.1 - Presence of intraocular lens (ICD-10) History of YAG laser capsulotomy of lens of left eye ?Z98.42 - Cataract extraction status, left eye (ICD-10) History of tenotomy (01/26/19) ?Z98.890 - Other specified postprocedural states (ICD-10) History of melanoma excision ?Z98.890 - Other specified postprocedural states (ICD-10) ?Z85.820 - Personal history of malignant melanoma of skin (ICD-10) History of tonsillectomy ?Z90.89 - Acquired absence of other organs (ICD-10) History of squamous cell carcinoma excision (2002) ?Z98.890 - Other specified postprocedural states (ICD-10) ?Z85.9 - Personal history of malignant neoplasm, unspecified (ICD-10) History of repair of rotator cuff (1984) ?Z98.890 - Other specified postprocedural states (ICD-10) History of mitral valve replacement (2016) ?Z95.2 - Presence of prosthetic heart valve (ICD-10) History of hysterectomy ?Z90.710 - Acquired absence of both cervix and uterus (ICD-10) Social History Narrative: lives alone. . Non-smoker. What is your current living situation?: declined to answer Problems where you live: declined to answer In the past 12 months, utilities in danger of being shut off: declined to answer In past 12 months, lack of transportation kept you from medical appts, meetings, work, or getting things needed for daily living: declined to answer In the past 12 mos, have been you worried that your food would run out before you had money to buy more?: declined to answer In the past 12 mos, the food you bought just didn't last and you didn't have money to buy more?: declined to answer Smoking Status: Never smoker Do you use any of these nicotine containing products: None Second hand tobacco smoke exposure: No How often do you have a drink containing alcohol: never How often do you have six or more drinks on one occasion: Never AUDIT-C Alcohol total score: 0 Non-prescribed substance use: denies use How often does anyone, including family, friends and others, physically hurt you: decline to answer How often does anyone, including family, friends and others, insult or talk down to you: decline to answer How often does anyone, including family, friends and others, threaten you with harm: decline to answer How often does anyone, including family, friends and others, scream or curse at you: decline to answer service: No Health Related Social Needs: unsheltered homelessness (Z59.02) Exam Narrative: Exam Narrative: EXAM GENERAL: Patient appears elderly and frail. EYES: No scleral icterus. No signs of head trauma. No neck tenderness. LYMPH: No supraclavicular or cervical lymphadenopathy. SKIN: Visible skin seen during exam normal or with benign process only. EXT: No dependent lower extremity pedal edema. Moves the right leg and hip with some crepitation but no obvious deformities. HEART: Regular rate and rhythm with no murmurs, rubs, or gallops. LUNGS: Clear to auscultation bilaterally with no crackles or wheezes. Chest exam shows tenderness palpation in the mid and anterior axillary line on the right. ABD: Soft, non tender, non distended. PSYCH: Good eye contact, speech is not pressured. Const: Vital Signs, click to edit/add: Vital Signs - 24 hr 10/31/24 20:02 Temperature 98.0 F Pulse Rate [Right Pulse Oximeter] 83 Respiratory Rate 16 Blood Pressure [Le ft Upper Arm] 167/70 H Pulse Oximetry 99 Oxygen Delivery Me thod Room Air Course Course ED Course: Patient seen and examined. CT chest abdomen pelvis EKG CBC basic metabolic panel urinalysis pending. Vital Signs Vital signs: Initial Vital Signs Temperature 98.0 F 10/31/24 20:02 Temperature Source Temporal Artery Scan 10/31/24 20:02 Pulse Rate 83 10/31/24 20:02 Pulse Rhythm Regular 10/31/24 20:02 Respiratory Rate 16 10/31/24 20:02 Blood Pressure 167/70 H 10/31/24 20:02 Blood Pressure Mean 102 10/31/24 20:02 Blood Pressure Position Sitting 10/31/24 20:02 Pulse Oximetry 99 10/31/24 20:02 Oxygen Delivery Method Room Air 10/31/24 20:02 Vital Signs Temperature 98.0 F 10/31/24 20:02 Pulse Rate 83 10/31/24 20:02 Respiratory Rate 16 10/31/24 20:02 Blood Pressure 167/70 H 10/31/24 20:02 Pulse Oximetry 99 10/31/24 20:02 Oxygen Delivery Method Room Air 10/31/24 20:02 Temperature 98.0 F 10/31/24 20:02 Pulse Rate 83 10/31/24 20:02 Respiratory Rate 16 10/31/24 20:02 Blood Pressure 167/70 H 10/31/24 20:02 Pulse Oximetry 99 10/31/24 20:02 Oxygen Delivery Method Room Air 10/31/24 20:02 Medical Decision Making MDM Narrative Medical decision making narrative: Patient is an 84-year-old woman who stumbled in her bathroom tonight wedging herself between her toilet and bathtub. She was able to get up with the assistance of her family. She is brought in with right hip and right rib pain. I did do CT chest abdomen pelvis she has no fractures or any other injuries. Labs are reassuring. EKG shows chronic appearing right bundle branch block. At this time she is asymptomatic other than aches and pains. She does take Plavix. I did recommend Tylenol rest ice and follow-up with her primary physician. Lab Data Labs: Lab Results 10/31/24 Range/Units 20:32 WBC 6.26 (4.50-11.00) K/uL RBC 3.67 L (4.00-5.20) m/uL Hgb 12.4 (12.0-16.0) gm/dL Hct 37.5 (33.0-51.0) % MCV 102 H (80-100) fL MCH 34 (26-34) pg MCHC 33 (32-36) gm/dL RDW Coeff of Katia 12.0 (11.5-15.5) % Plt Count 211 (140-440) K/uL Neut % (Auto) 54.8 (42.0-72.0) % Lymph % (Auto) 32.6 (20-44) % Hendricks % (Auto) 8.6 (0.0-11.0) % Eos % (Auto) 2.7 (0.0-7.0) % Baso % (Auto) 0.8 (0.0-3.0) % Neut # (Auto) 3.43 (1.7-7.0) K/uL Lymph # (Auto) 2.04 (0.90-2.90) K/uL Hendricks # (Auto) 0.50 (0.00-0.90) K/UL Eos # (Auto) 0.17 (0.00-0.50) K/uL Baso # (Auto) 0.05 (0.00-0.30) K/uL Abs Immat Gran (auto) 0.03 (0.00-0.30) K/uL Imm/Tot Granulo (auto) 0.5 % Sodium 141 (135-149) mmol/L Potassium 3.5 L (3.6-5.1) mmol/L Chloride 104 (96-114) mmol/L Carbon Dioxide 32 (20-32) mmol/L Anion Gap 5 L (7-15) mEq/L BUN 11 (7-30) mg/dL Creatinine 0.7 (0.5-1.5) mg/dL Estimated Creat Clear 31.81 Estimated GFR 84 ml/min Glucose 96 (60-115) mg/dL Calcium 9.4 (8.4-10.6) mg/dL Discharge Plan Discharge Clinical Impression: Multiple contusions of trunk Patient Disposition: Home w/ Parent or Adult Condition: Stable Instructions: Contusion in Adults (ED) Additional Instructions: Tylenol Ice Continue current medications Follow-up with your doctor as needed Activity Level: No Restrictions Discharge Diet: Regular Prescriptions: No Action cyanocobalamin (vitamin B-12) 1,000 mcg tablet 1,000 mcg PO DAILY cholecalciferol (vitamin D3) 25 mcg (1,000 unit) tablet 1,000 unit PO DAILY sennosides 8.6 mg tablet 8.6 mg PO DAILY Fish Oil 100-160-1,000 mg capsule 1 cap PO QDAY fluoxetine 20 mg capsule 20 mg PO QAM Qty: 90 3RF clopidogrel 75 mg tablet 75 mg PO DAILY Qty: 90 0RF rosuvastatin 40 mg tablet 40 mg PO DAILY Qty: 90 0RF diltiazem HCl 120 mg capsule,extended release 24hr 120 mg PO DAILY Qty: 90 0RF Follow Up/Referrals: Teagan Garcia MD [Primary Care Provider] - Stand Alone Forms: [email or web address] Info Instructions
[2024-10-31 20:38] LABS: Basophils Absolute Auto 0.05 K/uL (0.00-0.30); Basophils Percent Auto 0.8 % (0.0-3.0); Eosinophils Absolute Auto 0.17 K/uL (0.00-0.50); Eosinophils Percent Auto 2.7 % (0.0-7.0); Hematocrit 37.5 % (33.0-51.0); Hemoglobin* 12.4 gm/dL (12.0-16.0); Immature Granulocytes Abs Auto 0.03 K/uL (0.00-0.30); Immature Granulocytes Pct Auto 0.5 %; Lymphocytes Absolute Auto 2.04 K/uL (0.90-2.90); Lymphocytes Percent Auto 32.6 % (20-44); Mean Corpuscular HGB Conc 33 gm/dL (32-36); Mean Corpuscular Hemoglobin 34 pg (26-34); Mean Corpuscular Volume 102 fL (80-100); Monocytes Percent Auto 8.6 % (0.0-11.0); Neutrophils Absolute Auto 3.43 K/uL (1.7-7.0); Neutrophils Percent Auto 54.8 % (42.0-72.0); Platelet Count* 211 K/uL (140-440); Red Blood Count 3.67 m/uL (4.00-5.20); White Blood Count* 6.26 K/uL (4.50-11.00)
[2024-10-31 20:39] LABS: Slide Review Reflex No
[2024-10-31 20:59] LABS: Chloride* 104 mmol/L (96-114); Potassium* 3.5 mmol/L (3.6-5.1); Sodium* 141 mmol/L (135-149)
[2024-10-31 21:01] LABS: Creatinine* 0.7 mg/dL (0.5-1.5); Est. Creatinine Clearance* 31.81; Estimated Glomerular Filt Rate 84 ml/min
[2024-10-31 21:02] LABS: Anion Gap 5 mEq/L (7-15); Blood Urea Nitrogen* 11 mg/dL (7-30); Calcium* 9.4 mg/dL (8.4-10.6); Carbon Dioxide* 32 mmol/L (20-32); Glucose* 96 mg/dL (60-115)
== END 2024-10-31 21:29 | disposition home or self-care (01) ==
PROVIDERS: Emergency Provider Internal Medicine; PCP Internal Medicine
DX: R07.81 Pleurodynia (principal); M25.551 Pain in right hip; W19.XXXA Unspecified fall, initial encounter
CPT/HCPCS: 36415; 71250; 74176; 80048; 81003; 85025; 93005; 99283; 99284

== ENCOUNTER 2024-11-30 09:12 | Outpatient (CLI) | payer MEDICARE, BC, SELFPAY | END 2024-11-30 09:13 | disposition home or self-care (01) | PROVIDERS: PCP Internal Medicine; Visit Provider Internal Medicine | DX: E53.8 Deficiency of other specified B group vitamins (principal); I67.9 Cerebrovascular disease, unspecified | CPT/HCPCS: 80061; 82607 ==

== ENCOUNTER 2025-01-24 08:46 | Emergency (ER) | payer MEDICARE, BC, SELFPAY ==
--- OUTSIDE RECORDS SUMMARY | 2025-01-24 08:49 | XMS_ITS | Clinical Summary ---
Author Organization [facility] Address [address] , [address] [place] [address] Phone Care Team Providers Care Floor Sweeper Name Role Phone [facility] Unavailable Unava ilable Conditions or Problems Problem Name Problem Code Onset Date Status Entry Date Provider Comment Standard Description Annotate Stroke 841412460 (SNOMED CT) Active Clarence Cottrell MD Cerebrovascular accident Medications Medication Instructions Start Date Stop Date Generic Name NDC Provider ROSUVASTATIN CALCIUM 20 MG TABS TAKE ONE TABLET BY MOUTH ONE TIME DAILY rosuvastatin [id number] Clarence Cottrell MD DILTIAZEM HCL ER COATED BEADS 120 MG [id number] TAKE ONE CAPSULE BY MOUTH ONE TIME DAILY diltiazem hcl [id number] Clarence Cottrell MD CLOPIDOGREL BISULFATE 75 MG TABS TAKE ONE TABLET BY MOUTH ONE TIME DAILY clopidogrel [id number] Clarence Cottrell MD Medications Administered No information available. Allergies, Adverse Reactions, Alerts Observed no known allergies at Results Date Name Value Unit Range Flag Description Office Visit: Office Visit R debbie for visit : stroke Previous MRI/CT in la SMOK STATUS former smoker Tob acco smoking status Internal Other: Verbal Autho rization/Emergency Contact - OBS VERBAL_EMER DONE Verbal au thorization and emergency contact Internal Other: Authorizatio n - OBS [email or web address] Yes Authoriza tion: Release of Information - Authorize [facility] - Payment and Healthcare Operations ROIAUTHOTHER Yes Authoriz ation: Release of Information - Authorize Others/Insurance - Payment and Healthcare Operations HIECONSENT Yes Consent To Release information to the Health Information Exchange (HIE) [email or web address] Yes Authorizat ion: Authorization for Noran/SEBASTIAN to leave messages, voicemail, send text messages, send emails AUTHRELHCARE Yes Authoriz ation: Release/Retrieval of Information to/from Healthcare Facilities, Pharmacy Benefit Payers and Providers AUTHPRIVPRAC Yes Authoriz ation: Notice of privacy practices AUTHBENEFIT Yes Authoriza tion: Assignment of Benefits and Payment Agreement Plan of Care Type Date Detail Pending order MRA-Head W/O Pending order MRA-Neck W/WO Pending order Patient to call for test results Pending order Homocysteine Pending order Methylmalonic Ac id Serum (MMA) Pending order Other Lab Pending order Homocysteine Pending order Methylmalonic Ac id Serum (MMA) Pending order Other Lab Procedures Code Procedure Name Date Entry Date [id number] MRA-Neck W/WO [id number] MRA-Head W/O ORDERS Patient to call for test results Vital Signs Date Name Value Unit Description BMI (Body Mass Index) 19.64 kg/m2 Bod y Mass Index (Ratio) Height 64 [in_us] height E&M Weight Measured 114 [lb_av] weight E& M Weight Measured 114 [lb_av] weight E& M Weight Measured 51.82 kg weight in kilograms E&M Immunizations No information available. Advance Directives No information available.
--- OUTSIDE RECORDS SUMMARY | 2025-01-24 08:49 | XMS_ITS | Clinical Summary ---
Author Organization [facility] Address [address] [place] [id number] Care Team Providers Care Director For [employer] Name Role Phone Teagan Garcia MD Primary Care Provider [phone] Allergies No known active allergies Medications diphenhydrAMINE (BENADRYL) 25 mg capsuleIndicatio ns:Insomnia, unspecified type Take 1 capsule by mouth at bedtime if needed (takes 1-2 tablets for sleep). 0 7 Active sennosides (SENNA) 8.6 mg tablet Take 8.6 mg by mouth once daily. Patient alternates between taking 1 tablet every evening and 2 tablets every evening Active clopidogrel (PLAVIX) 75 mg tablet Take by mouth once daily. 3 9 Active lactobacillus combination no.4 (PROBIOTIC) 3 billion cell cap Take by mouth once daily. 0 9 Active cholecalciferol (VITAMIN D3) 1,000 unit capsule Take 1 capsule by mouth once daily. 0 Active rosuvastatin (CRESTOR) 40 mg tablet Take 1 Tablet (40 mg) by mouth once daily. 5 Active dilTIAZem (DILACOR XR; DILTIA XT) 120 mg Extended-Release capsule Take 2 Capsules (240 mg) by mouth once daily. 5 Active Active Problems Problem Noted Date Diagnosed Date S/P MVR (mitral valve replacement) 10/09/2017 Overview (10/09/2017): MVR with 27 mm Mosai bioprosthetic valve 10/09/17 Dr. Alonzo History of total right hip replacement 7 Severe mitral regurgitation 09/20/2017 Pelvic organ prolapse quantification stage 1 rec tocele 02/14/2017 Colon polyp 09/21/2014 Overview (01/18/2015): Colonoscopy 01/2015 normal repeat in 5 years Cataracts, bilateral 10/26/2013 GERD (gastroesophageal reflux disease) 3 Melanoma 12/01/2012 Overview (03/20/2017): On right lower leg Unspecified venous (peripheral) insufficiency Right hip pain 11/12/2011 Status post left hip replacement 11/12/2011 Overview (11/12/2011): November 2010. 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 [address] [place] [address] Marty Talbot MD from Last 3 Months Immunizations Immunization Administration Dates Next Due DTaP 10/31/2005 HepA-HepB (Twinrix) 02/11/2012,09/11/2011,2010 Influenza, CCIIV3 (Age >=6 MO) (Egg Free) 2016 Influenza, High-dose Inactivated 08/17/2016 Influenza, IIV3 (Age >=3 years) 09/04/2011 Pneumococcal Poly,23-Valent (Pneumovax) 11/11/19 07,11/28/2005 Pneumococcal conj [...] Paying Living Expenses Not on file 11/11/2021 Comments No Sex and Gender Information Value Date Recorded Sex Assigned at Not on file Legal Sex Female 8:17 AM LEARNING TECHNOLOGIST Gender Identity Not on file Sexual Orientation Not on file Obstetrics History Para Term AB IAB SAB Ectopic Multiple Livin g Live Births 3 2 2 1 1 2 Date Outcome GA Total Labor Labor/2nd/3rd Weight Sex Type Anes PTL Kaylan A1 A5 Name Clin Term Term SAB Last Filed Vital Signs Vital Sign Reading Time Taken Comments Blood Pressure 122/69 05/29/2023 2:48 PM CDT Pulse 75 05/29/2023 2:48 PM CDT Temperature 36.8 C (98.3 F) 12/01/2019 2:42 PM LEARNING TECHNOLOGIST Respiratory Rate 14 08/05/2020 1:42 PM CDT [...] age 50+ (2 of 3) 07/03/2011 05/08/2011 RSV vaccine for adults or (1 - 1-dose 75+ series) 2013 Medicare Wellness for age 65+ 09/29/2017, 09/26/2015, 09/21/2014, Additional history exists Depression screening for age 12+ 10/29/2018 10/29/2017, 09/04/2017, 09/28/2016 BMI (ht and wt on same day) for age 18+ 02/26/2020 02/25/2019, 08/06/2018, 04/30/2018, Additional history exists Tetanus booster 08/08/2021 08/08/2011 Influenza Vaccine (#1) 2024 7, 08/17/2016, 09/04/2011 COVID-19 vaccine series ( season) 2025 07/26/2024, 08/10/2023, 07/30/2022, Additional history exists Tdap Completed 08/08/2011 Pneumococcal series for age 50+ Completed 09/28/2016, 09/28/2016, 09/20/2014, Additional history exists DEXA/DXA scan for age 65+ Completed 2016, 02/13/2012 (Declined) Medical Devices Implanted Type Area Channel Specialist Device Identifier Shelf Expiration Date Model / Serial / Lot Valve Mitral 27mm Mosaic Tissue - [id number] Implanted:Qty: 1 on 10/09/2017 by Arian Alonzo MD at [facility] N/A: Mitral Valve [employer] Cardiac Surgery 07/30/2022 [id number] / [id number] / Procedures Procedure Name Priority Date/Time Associated [...] scanned document for results of this study. us Barb Pierre MD DEXA Amanda l Result from Last 3 Months or Most Recently Relevant to Health Maintenance [place] [address] [place] BL[place] MR PB ONLY [place] HB ONLY MEDICARE PART B HB ONLY MEDICARE PART A HB ONLY Advance Directives * Full Code (Latest Code Status on File) Date Activated Date Inactivated Comments 10/10/2017 8:10 AM 10/16/2017 4:15 PM * Full Code Date Activated Date Inactivated Comments 10/09/2017 6:00 AM 10/09/2017 11:27 AM Care Teams Director For [employer] Relationship Specialty Start Date End Date Teagan Garcia MD [address] [place] [id number] PCP - General Internal Medicine 10/28/17
[2025-01-24 08:54] VITALS: BP 107/98; PULSE 78; RESP 20; TEMP 36.8; O2SAT 99; BMI 18.6
--- NOTE | 2025-01-24 09:16 | CRLHL7_ITS ---
For Patients: As a result of the Century Cures Act, medical imaging exams and procedure reports are released immediately into your electronic medical record. You may view this report before your referring provider. If you have questions, please contact your health care provider. INDICATION: Abdominal pain TECHNIQUE: CT abdomen and pelvis acquired with 100 cc Omnipaque 350 IV contrast. COMPARISON: CT chest abdomen pelvis 10/31/2024. FINDINGS: Lower chest: Cardiomegaly. Mitral valve replacement. Liver: Left hepatic lobe cyst. Gallbladder and bile ducts: Mild intra and extrahepatic biliary ductal prominence with the common bile duct measuring 1 centimeter is similar to prior. Pancreas: Unremarkable. Spleen: Unremarkable. Adrenal glands: Unremarkable. Kidneys: Unremarkable. No suspicious masses, stones, or hydronephrosis. GI tract: No obstruction. Moderate stool burden throughout the colon. Bowel loops in the pelvis can not be evaluated due to streak artifact. Appendix is not visualized. Vasculature: Abdominal aorta is normal in caliber. Moderate aortoiliac atherosclerosis. Mesenteric arteries are patent. Lymph nodes: No lymphadenopathy. Peritoneum/Abdominal Wall: Unremarkable. No sign of mass or infiltration. No free air or significant free fluid. Pelvis: Hysterectomy. Bones: Moderate degenerative disease of the spine. Grade 1 retrolisthesis of L1 on L2, as before. Bilateral total hip arthroplasties. IMPRESSION: No acute intra-abdominal or intrapelvic findings to explain symptoms. Moderate stool burden throughout the colon is suggestive of constipation. Intra and extrahepatic biliary ducts are mildly dilated, and greater than expected for age. This is similar to prior, but if LFTs are abnormal consider further evaluation with MRCP. Please note that all CT scans at this facility use dose modulation, iterative reconstruction, and/or weight-based dosing when appropriate to reduce radiation dose to as low as reasonably achievable. Dictated by Asha Montalvo MD @ 01/24/2025 10:28:56 AM (Electronically Signed)
--- NOTE | 2025-01-24 09:17 | ED_ITS ---
HPI - General Adult General Chief complaint: Back Injury/Pain Stated complaint: back pain Time Seen by Provider: 01/24/25 09:03 History of Present Illness HPI narrative: Patient is an 84-year-old woman who has chronic low back pain who woke this morning at [facility] with right-sided back pain with radiation to the right side of the abdomen. Patient got up and had a bowel movement but no improvement in her symptoms. She has had no recent injuries no bladder issues no fevers no chills. The pain is persisted and still radiates the right-sided the abdomen. She has no dysuria no nausea no vomiting no chest pain no shortness a breath. Patient has a complex history and is quite frail. She seems to be oriented x3. No other complaints. She is here with her son. Related Data Home Medications ?Medication ?Instructions ?Recorded ?Confirmed cholecalciferol (vitamin D3) 25 1,000 unit PO DAILY 07/24/22 12/03/24 mcg (1,000 unit) tablet cyanocobalamin (vitamin B-12) 1,000 mcg PO DAILY 07/24/22 12/03/24 1,000 mcg tablet sennosides 8.6 mg tablet 8.6 mg PO DAILY 07/24/22 12/03/24 omega 7-iuy-kqx-fish oil 100 1 cap PO QDAY 02/26/23 12/03/24 mg-160 mg-1,000 mg capsule (Fish Oil) Previous Rx's ?Medication ?Instructions ?Recorded clopidogrel 75 mg tablet 75 mg PO DAILY #90 tabs 11/30/24 diltiazem HCl 120 mg 120 mg PO DAILY #90 caps 11/30/24 capsule,extended release 24 hr fluoxetine 20 mg capsule 20 mg PO QAM #90 caps 11/30/24 rosuvastatin 40 mg tablet 40 mg PO DAILY #90 tabs 11/30/24 Allergies Allergy/AdvReac Type Severity Reaction Status Date / Time No Known Drug Allergies Allergy Verified 01/24/25 08:54 Review of Systems Status of ROS: Reports: 10 or more systems reviewed and unremarkable except as noted in History and below [facility] Surgical History 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) ?Z96.642 - Presence of left artificial hip joint (ICD-10) History of total right hip replacement (02/20/12) ?Z96.641 - Presence of right artificial hip joint (ICD-10) History of phacoemulsification of cataract of both eyes with intraocular lens implantation ?Z98.41 - Cataract extraction status, right eye (ICD-10) ?Z98.42 - Cataract extraction status, left eye (ICD-10) ?Z96.1 - Presence of intraocular lens (ICD-10) History of YAG laser capsulotomy of lens of left eye ?Z98.42 - Cataract extraction status, left eye (ICD-10) History of tenotomy (01/26/19) ?Z98.890 - Other specified postprocedural states (ICD-10) History of melanoma excision ?Z98.890 - Other specified postprocedural states (ICD-10) ?Z85.820 - Personal history of malignant melanoma of skin (ICD-10) History of tonsillectomy ?Z90.89 - Acquired absence of other organs (ICD-10) History of squamous cell carcinoma excision (2002) ?Z98.890 - Other specified postprocedural states (ICD-10) ?Z85.9 - Personal history of malignant neoplasm, unspecified (ICD-10) History of repair of rotator cuff (1984) ?Z98.890 - Other specified postprocedural states (ICD-10) History of mitral valve replacement (2016) ?Z95.2 - Presence of prosthetic heart valve (ICD-10) History of hysterectomy ?Z90.710 - Acquired absence of both cervix and uterus (ICD-10) Social History Narrative: lives alone. . Non-smoker. What is your current living situation?: I presently have a place to live Problems where you live: no known problems In the past 12 months, utilities in danger of being shut off: no In past 12 months, lack of transportation kept you from medical appts, meetings, work, or getting things needed for daily living: no In the past 12 mos, have been you worried that your food would run out before you had money to buy more?: never true In the past 12 mos, the food you bought just didn't last and you didn't have money to buy more?: never true Smoking Status: Never smoker Do you use any of these nicotine containing products: None Second hand tobacco smoke exposure: No How often do you have a drink containing alcohol: never How often do you have six or more drinks on one occasion: Never AUDIT-C Alcohol total score: 0 Non-prescribed substance use: denies use How often does anyone, including family, friends and others, physically hurt you : never How often does anyone, including family, friends and others, insult or talk down to you: never How often does anyone, including family, friends and others, threaten you with harm: never How often does anyone, including family, friends and others, scream or curse at you: never service: No Exam Narrative: Exam Narrative: EXAM GENERAL: Patient appears comfortable and well. Frail. EYES: No scleral icterus. LYMPH: No supraclavicular or cervical lymphadenopathy. SKIN: Visible skin seen during exam normal or with benign process only. EXT: No dependent lower extremity pedal edema. HEART: Regular rate and rhythm with no murmurs, rubs, or gallops. LUNGS: Clear to auscultation bilaterally with no crackles or wheezes. ABD: Soft, non tender, non distended. PSYCH: Good eye contact, speech is not pressured. Const: Vital Signs, click to edit/add: Vital Signs - 24 hr 01/24/25 08:54 01/24/25 10:20 Temperature 98.3 F Pulse Rate [Pulse Oximeter] 78 Respiratory Rate 20 Blood Pressure [Le ft Upper Arm] 107/98 H 202/103 H Pulse Oximetry 99 Oxygen Delivery Me thod Room Air Course Course ED Course: CBC CMP UA CT abdomen pelvis pending. Vital Signs Vital signs: Initial Vital Signs Temperature 98.3 F 01/24/25 08:54 Temperature Source Temporal Artery Scan 01/24/25 08:54 Pulse Rate 78 01/24/25 08:54 Pulse Rhythm Regular 01/24/25 08:54 Respiratory Rate 20 01/24/25 08:54 Blood Pressure 107/98 H 01/24/25 08:54 Blood Pressure Mean 101 01/24/25 08:54 Blood Pressure Position Semi-Fowlers 01/24/25 08:54 Pulse Oximetry 99 01/24/25 08:54 Oxygen Delivery Method Room Air 01/24/25 08:54 Vital Signs Temperature 98.3 F 01/24/25 08:54 Pulse Rate 78 01/24/25 08:54 Respiratory Rate 20 01/24/25 08:54 Blood Pressure 107/98 H 01/24/25 08:54 Pulse Oximetry 99 01/24/25 08:54 Oxygen Delivery Method Room Air 01/24/25 08:54 Temperature 98.3 F 01/24/25 08:54 Pulse Rate 78 01/24/25 08:54 Respiratory Rate 20 01/24/25 08:54 Blood Pressure 202/103 H 01/24/25 10:20 Pulse Oximetry 99 01/24/25 08:54 Oxygen Delivery Method Room Air 01/24/25 08:54 Medical Decision Making MDM Narrative Medical decision making narrative: Patient is a 84-year-old woman comes in with acute on chronic back pain on the right. Interestingly there was radiation into the abdomen. CT abdomen pelvis is unremarkable labs are reassuring UA is unremarkable. At this time I think this is a acute on chronic low back pain and will treat with anti-inflammatories Tylenol rest rotation of heat and ice and follow-up with primary care as needed. Lab Data Labs: Lab Results 01/24/25 01/24/25 01/24/25 Range/Units 09:16 09:18 09:25 WBC 7.87 (4.50-11.00) K/uL RBC 3.99 L (4.00-5.20) m/uL Hgb 13.4 (12.0-16.0) gm/dL Hct 39.5 (33.0-51.0) % MCV 99 (80-100) fL MCH 34 (26-34) pg MCHC 34 (32-36) gm/dL RDW Coeff of Katia 11.7 (11.5-15.5) % Plt Count 232 (140-440) K/uL Neut % (Auto) 71.3 (42.0-72.0) % Lymph % (Auto) 20.7 (20-44) % Williams % (Auto) 6.4 (0.0-11.0) % Eos % (Auto) 0.9 (0.0-7.0) % Baso % (Auto) 0.6 (0.0-3.0) % Neut # (Auto) 5.61 (1.7-7.0) K/uL Lymph # (Auto) 1.63 (0.90-2.90) K/uL Williams # (Auto) 0.50 (0.00-0.90) K/UL Eos # (Auto) 0.07 (0.00-0.50) K/uL Baso # (Auto) 0.05 (0.00-0.30) K/uL Abs Immat Gran (auto) 0.01 (0.00-0.30) K/uL Imm/Tot Granulo (auto) 0.1 % Sodium 138 (135-149) mmol/L Potassium 3.5 L (3.6-5.1) mmol/L Chloride 101 (96-114) mmol/L Carbon Dioxide 26 (20-32) mmol/L Anion Gap 11 (7-15) mEq/L BUN 9 (7-30) mg/dL Creatinine 0.5 (0.5-1.5) mg/dL Estimated Creat Clear 32.39 Estimated GFR 91 ml/min Glucose 92 (60-115) mg/dL Calcium 9.5 (8.4-10.6) mg/dL Total Bilirubin 1.3 (0.1-1.5) mg/dL AST 24 (12-35) U/L ALT 22 (4-35) U/L Alkaline Phosphatase 54 (40-150) U/L Total Protein 7.4 (6.0-8.3) g/dL Albumin 4.8 (3.3-5.0) g/dL Lipase 108 (23-300) U/L Urine Color Light yellow (Yellow) Urine Appearance Clear (Clear) Urine pH 8.5 (5.0-8.5) Ur Specific [place] 1.015 (1.000-1.030) Urine Protein Negative (Negative) Urine Glucose (UA) Negative (Negative) Urine Ketones Negative (Negative) Urine Blood Trace-intact A (Negative) Urine Nitrite Negative (Negative) Urine Bilirubin Negative (Negative) Urine Urobilinogen 0.2 (0.2-1.0) Ur Leukocyte Esterase Negative (Negative) Urine RBC 0-2 (0-2) Urine WBC 0-2 (0-5) Ur Squamous Epith Cells None (None-Few) Urine Bacteria None (None) POC Creatinine 0.6 (0.6-1.3) mg/dl Discharge Plan Discharge Clinical Impression: Low back pain Patient Disposition: Home, Self-Care Condition: Stable Instructions: Acute Low Back Pain (ED) Additional Instructions: Ibuprofen 400 mg 3 times a day as needed Tylenol 650 mg 3 times a day as needed Ice Heat Advanced activity as tolerated Follow-up with your doctor this week as needed. Activity Level: No Restrictions Discharge Diet: Regular Prescriptions: No Action cyanocobalamin (vitamin B-12) 1,000 mcg tablet 1,000 mcg PO DAILY cholecalciferol (vitamin D3) 25 mcg (1,000 unit) tablet 1,000 unit PO DAILY sennosides 8.6 mg tablet 8.6 mg PO DAILY Fish Oil 100-160-1,000 mg capsule 1 cap PO QDAY rosuvastatin 40 mg tablet 40 mg PO DAILY Qty: 90 3RF fluoxetine 20 mg capsule 20 mg PO QAM Qty: 90 3RF diltiazem HCl 120 mg capsule,extended release 24hr 120 mg PO DAILY Qty: 90 3RF clopidogrel 75 mg tablet 75 mg PO DAILY Qty: 90 3RF Follow Up/Referrals: Teagan Garcia MD [Primary Care Provider] - Stand Alone Forms: MyHealth Info Instructions
[2025-01-24 09:24] LABS: Appearance Urine Clear (Clear); Bilirubin Urine Negative (Negative); Blood Urine Trace-intact (Negative); Color Urine Light yellow (Yellow); Glucose Urine Negative (Negative); Ketones Urine Negative (Negative); Leukocyte Esterase Urine Negative (Negative); Nitrite Urine Negative (Negative); Protein Urine Negative (Negative); Specific Gravity Urine 1.015 (1.000-1.030); Urobilinogen Urine 0.2 (0.2-1.0); pH Urine 8.5 (5.0-8.5)
[2025-01-24 09:38] LABS: Creatinine, Point-of-Care* 0.6 mg/dl (0.6-1.3)
[2025-01-24 09:47] LABS: Basophils Absolute Auto 0.05 K/uL (0.00-0.30); Basophils Percent Auto 0.6 % (0.0-3.0); Eosinophils Absolute Auto 0.07 K/uL (0.00-0.50); Eosinophils Percent Auto 0.9 % (0.0-7.0); Hematocrit 39.5 % (33.0-51.0); Hemoglobin* 13.4 gm/dL (12.0-16.0); Immature Granulocytes Abs Auto 0.01 K/uL (0.00-0.30); Immature Granulocytes Pct Auto 0.1 %; Lymphocytes Absolute Auto 1.63 K/uL (0.90-2.90); Lymphocytes Percent Auto 20.7 % (20-44); Mean Corpuscular HGB Conc 34 gm/dL (32-36); Mean Corpuscular Hemoglobin 34 pg (26-34); Mean Corpuscular Volume 99 fL (80-100); Monocytes Percent Auto 6.4 % (0.0-11.0); Neutrophils Absolute Auto 5.61 K/uL (1.7-7.0); Neutrophils Percent Auto 71.3 % (42.0-72.0); Platelet Count* 232 K/uL (140-440); RDW Coefficient of Variation % 11.7 % (11.5-15.5); Red Blood Count 3.99 m/uL (4.00-5.20); White Blood Count* 7.87 K/uL (4.50-11.00)
--- OUTSIDE RECORDS SUMMARY | 2025-01-24 09:47 | XMS_ITS | Clinical Summary ---
Author Organization [facility] Address [address] [place] [address] Care Team Providers Care Hole Digger Name Role Phone Teagan Garcia MD Primary Care Provider +1- [phone] Allergies No known active allergies Medications diphenhydrAMINE [...] operator (current) use of anticoagulants 02/25/2012 03/18/2012 Encounters Date Type Department Care Team Description 12/03/2024 2:00 PM BIODIESEL PROCESSING TECHNICIAN Office Visit [facility] [address] [place] [address] Marty Talbot MD from Last 3 Months [...] on file Legal Sex Female 8:17 AM BIODIESEL PROCESSING TECHNICIAN Gender Identity Not on file Sexual Orientation [...] 36.8 C (98.3 F) 12/01/2019 2:42 PM BIODIESEL PROCESSING TECHNICIAN Respiratory Rate 14 08/05/2020 1:42 PM CDT [...] 02/13/2012 (Declined) Medical Devices Implanted Type Area Station Engineer Main Line Device Identifier Shelf Expiration Date Model / Serial / Lot Valve Mitral 27mm Mosaic Tissue - [id number] Implanted:Qty: 1 on 10/09/2017 by Arian Alonzo MD at [facility] N/A: Mitral Valve [employer] Cardiac Surgery 07/30/2022 [id number] / [id number] / Procedures Procedure Name Priority Date/Time Associated [...] Recently Relevant to Health Maintenance Insurance [place] [address] [employer] [place] BLUE MR PB ONLY [employer] [place] BLUE HB ONLY MEDICARE PART B HB ONLY MEDICARE PART A HB ONLY Advance Directives * Full Code (Latest Code Status on File) Date Activated Date Inactivated Comments 10/10/2017 8:10 AM 10/16/2017 4:15 PM * Full Code Date Activated Date Inactivated Comments 10/09/2017 6:00 AM 10/09/2017 11:27 AM Care Teams Hole Digger Relationship Specialty Start Date End Date Teagan Garcia MD [address] [place] [id number] PCP - General Internal Medicine 10/28/17
--- OUTSIDE RECORDS SUMMARY | 2025-01-24 09:47 | XMS_ITS | Clinical Summary ---
Author Organization [facility] Address [address] [facility] , [address] [place] [address] Phone Care Team Providers Care Meter Maintenance Person Name Role Phone [facility] Unavailable Unava ilable Conditions or Problems Problem Name Problem Code Onset Date Status Entry Date Provider Comment Standard Description Annotate Stroke [id number] (SNOMED CT) Active Clarence Cottrell MD Cerebrovascular accident Medications Medication Instructions Start Date Stop Date Generic Name NDC Provider ROSUVASTATIN CALCIUM 20 MG TABS TAKE ONE TABLET BY MOUTH ONE TIME DAILY rosuvastatin [id number] Clarence Cottrell MD DILTIAZEM HCL ER COATED BEADS 120 MG [id number] TAKE ONE CAPSULE BY MOUTH ONE TIME DAILY diltiazem hcl [id number] Clarence Cottrell MD CLOPIDOGREL BISULFATE 75 MG TABS TAKE ONE TABLET BY MOUTH ONE TIME DAILY clopidogrel [id number] Clarence Cottrell MD Medications Administered No information [...] Procedures Code Procedure Name Date Entry Date [id number] MRA-Neck W/WO [id number] MRA-Head W/O ORDERS Patient to call for [...]
[2025-01-24 09:53] LABS: Albumin* 4.8 g/dL (3.3-5.0); Chloride* 101 mmol/L (96-114); Potassium* 3.5 mmol/L (3.6-5.1); Sodium* 138 mmol/L (135-149)
[2025-01-24 09:56] LABS: Alkaline Phosphatase* 54 U/L (40-150); Anion Gap 11 mEq/L (7-15); Aspartate Amino Transferase* 24 U/L (12-35); Bilirubin Total* 1.3 mg/dL (0.1-1.5); Blood Urea Nitrogen* 9 mg/dL (7-30); Calcium* 9.5 mg/dL (8.4-10.6); Carbon Dioxide* 26 mmol/L (20-32); Creatinine* 0.5 mg/dL (0.5-1.5); Est. Creatinine Clearance* 32.39; Estimated Glomerular Filt Rate 91 ml/min; Glucose* 92 mg/dL (60-115); Lipase* 108 U/L (23-300); Total Protein* 7.4 g/dL (6.0-8.3)
[2025-01-24 09:57] LABS: RBC Urine 0-2 (0-2); WBC Urine 0-2 (0-5)
[2025-01-24 09:57] LABS: Alanine Aminotransferase* 22 U/L (4-35)
[2025-01-24 09:58] LABS: Slide Review Reflex No
[2025-01-24 10:20] VITALS: BP 202/103
== END 2025-01-24 11:02 | disposition home or self-care (01) ==
PROVIDERS: Emergency Provider Internal Medicine; PCP Internal Medicine
DX: M54.50 Low back pain, unspecified (principal); G89.29 Other chronic pain
CPT/HCPCS: 36415; 74177; 80053; 81001; 81003; 82565; 83690; 85025; 99283; 99284; 99285; Q9967

== ENCOUNTER 2025-06-11 11:31 | Emergency (ER) | payer MEDICARE, BC, SELFPAY ==
--- OUTSIDE RECORDS SUMMARY | 2025-06-11 11:33 | XMS_ITS | Clinical Summary ---
Author Organization [facility] Address [address] [place] [address] Care Team Providers Care Nip Wrapper Name Role Phone Teagan Garcia MD Primary Care Provider +1- [phone] Allergies No known active allergies Medications diphenhydrAMINE [...] mg) by mouth once daily. 5 Active FLUoxetine 20 mg capsule 5 Active Atlhg-7-JIV-EPA- Fish Oil (Fish OiL) 1,200 (144-216) mg capsule Take by mouth. Activ e Active Problems Problem Noted Date Diagnosed Date [...] Date Resolved Date Retinal hemorrhage 05/19/2012 3 terminal make up operator (current) use of anticoagulants 02/25/2012 03/18/2012 Immunizations Immunization Administration Dates Next Due DTaP [...] on file Legal Sex Female 8:17 AM ASSIGNMENT MANAGER Gender Identity Not on file Sexual Orientation Not on file Obstetrics History Para Term AB IAB SAB Ectopic Multiple Livin g Live Births 3 2 2 1 1 2 Date Outcome GA Total Labor Labor/2nd/3rd Weight Sex Type Anes PTL Kaylan A1 A5 Name Clin Term Term SAB Last Filed Vital Signs Vital Sign Reading Time Taken Comments Blood Pressure 132/73 03/10/2025 1:05 PM CDT Pulse 77 03/10/2025 1:05 PM CDT Temperature 36.8 C (98.3 F) 12/01/2019 2:42 PM ASSIGNMENT MANAGER Respiratory Rate 14 08/05/2020 1:42 PM CDT Oxygen Saturation 99% 03/10/2025 1:05 PM CDT Inhaled Oxygen Concentration - - [...] Tetanus booster 08/08/2021 08/08/2011 Influenza Vaccine (#1) 2025 7, 08/17/2016, 09/04/2011 Hepatitis B series for 19+ Completed 02/10, 09/11/2011, 08/08/2011 Pneumococcal series for age 50+ Completed 09/28/2016, 09/28/2016, 09/20/2014, Additional history exists DEXA/DXA scan for age 65+ Completed 2016, 02/13/2012 (Declined) COVID-19 vaccine series Completed 02/10/20, 07/26/2024, 08/10/2023, Additional history exists Medical Devices Implanted Type Area Detention Officer Device Identifier Shelf Expiration Date Model / Serial / Lot Valve Mitral 27mm Mosaic Tissue - [id number] Implanted:Qty: 1 on 10/09/2017 by Arian Alonzo MD at [facility] N/A: Mitral Valve [employer] Cardiac Surgery 07/30/2022 [id number] / [id number] / Procedures Procedure Name Priority Date/Time Associated [...] Most Recently Relevant to Health Maintenance Insurance [employer] [place] BLUE MR PB ONLY [place] BLUE HB ONLY MEDICARE PART B HB ONLY MEDICARE PART A HB ONLY Advance Directives * Full Code (Latest Code Status on File) Date Activated Date Inactivated Comments 10/10/2017 8:10 AM 10/16/2017 4:15 PM * Full Code Date Activated Date Inactivated Comments 10/09/2017 6:00 AM 10/09/2017 11:27 AM Care Teams Nip Wrapper Relationship Specialty Start Date End Date Teagan Garcia MD [address] [place] [id number] PCP - General Internal Medicine 10/28/17
--- OUTSIDE RECORDS SUMMARY | 2025-06-11 11:33 | XMS_ITS | Clinical Summary ---
Author Organization [facility] Address [address] [facility] , [address] [place] [address] Phone Care Team Providers Care General Studies Program Chair Name Role Phone [facility] Unavailable Unava ilable Conditions or Problems Problem Name Problem Code Onset Date Status Entry Date Provider Comment Standard Description Annotate Stroke [id number] (SNOMED CT) Active Clarence oCttrell MD Cerebrovascular accident Medications Medication Instructions Start Date Stop Date Generic Name NDC Provider ROSUVASTATIN CALCIUM 20 MG TABS TAKE ONE TABLET BY MOUTH ONE TIME DAILY rosuvastatin [id number] Clarence Cottrell MD DILTIAZEM HCL ER COATED BEADS 120 MG [id number] TAKE ONE CAPSULE BY MOUTH ONE TIME DAILY diltiazem hcl [id number] Clarence Cottrell MD CLOPIDOGREL BISULFATE 75 MG TABS TAKE ONE TABLET BY MOUTH ONE TIME DAILY clopidogrel [id number] Clarence Cottrell MD Medications Administered No information [...] Procedures Code Procedure Name Date Entry Date [id number] MRA-Neck W/WO [id number] MRA-Head W/O ORDERS Patient to call for [...]
[2025-06-11 11:47] VITALS: BP 170/82; PULSE 79; RESP 20; TEMP 36.4; O2SAT 99; BMI 22.3
--- NOTE | 2025-06-11 11:55 | CRLHL7_ITS ---
For Patients: As a result of the Century Cures Act, medical imaging exams and procedure reports are released immediately into your electronic medical record. You may view this report before your referring provider. If you have questions, please contact your health care provider. INDICATION: Right-sided neck pain, status post fall TECHNIQUE: CT cervical spine without contrast. COMPARISON: CT cervical spine 07/26/2023 FINDINGS: Vertebrae: Similar straightening of the cervical lordosis and mild dextrocurvature. Unchanged grade 1 anterolisthesis of C7 on T1. Vertebral body heights are maintained. No acute fracture or traumatic subluxation. Discs and facet joints: Degenerative change at the atlantodental articulation. Similar multilevel facet joint osteoarthrosis most prominent at C4-C5, multilevel disc space narrowing, and osteophyte formation. Similar spinal canal narrowing at C6. Unchanged severe neuroforaminal stenosis on the left at C4-C6 and on the right at C4-C5 Extraspinal findings: Similar multinodular bilateral thyroid, the largest hypoattenuating nodule in the right inferior lobe measures 1.9 cm IMPRESSION: 1. No sign of acute injury. 2. Similar multilevel degenerative spondylosis. 3. Unchanged multinodular thyroid. Please note that all CT scans at this facility use dose modulation, iterative reconstruction, and/or weight-based dosing when appropriate to reduce radiation dose to as low as reasonably achievable. Dictated by Madyson Cheng MD @ 06/11/2025 12:39:46 PM (Electronically Signed)
--- OUTSIDE RECORDS SUMMARY | 2025-06-11 11:59 | XMS_ITS | Clinical Summary ---
Author Organization [facility] Address [address] [facility] , [address] [place] [address] Phone Care Team Providers Care Industrial Maintenance Repairer Name Role Phone [facility] Unavailable Unava ilable Conditions or Problems Problem Name Problem Code Onset Date Status Entry Date Provider Comment Standard Description Annotate Stroke [id number] (SNOMED CT) Active Clarence Cottrell MD Cerebrovascular accident Medications Medication Instructions Start Date Stop Date Generic Name NDC Provider ROSUVASTATIN CALCIUM 20 MG TABS TAKE ONE TABLET BY MOUTH ONE TIME DAILY rosuvastatin [id number] Clarence Cottrell MD DILTIAZEM HCL ER COATED BEADS 120 MG [id number] TAKE ONE CAPSULE BY MOUTH ONE TIME DAILY diltiazem hcl [id number] Clarence Cottrell MD CLOPIDOGREL BISULFATE 75 MG TABS TAKE ONE TABLET BY MOUTH ONE TIME DAILY clopidogrel [id number] Clarence Cottrell MD Medications Administered No information [...] Procedures Code Procedure Name Date Entry Date [id number] MRA-Neck W/WO [id number] MRA-Head W/O ORDERS Patient to call for [...]
--- NOTE | 2025-06-14 17:48 | ED.GENADULT ---
HPI - General Adult General Chief complaint: Fall/Minor Trauma Stated complaint: Fell 929, hit head, high bp Time Seen by Provider: 06/11/25 11:39 History of Present Illness HPI narrative: pt. presents to the ED today from [facility] after a fall. pt. was getting dressed and lost her balance and fell. pt. used her alert button to notify staff and they where able to assist her up right away. pt is on blood thinners and endorses head and neck pain. pt also notes concerns about blood pressure . she endorses being dizzy and lightheaded and a head ache in triage. 84-year-old woman presenting to emergency department accompanied by her son with concern of fall and head injury. Has struggle with gait instability due to perceptual dizziness that seems rather persistent. And this morning while trying to get into her jeans she stumbled into her closet and she says she bumped her head on the wall in the closet. Shoe rack was also destabilized in son wonders if she might have hit her head there but she initially denies that. She has also sustained a skin tear apparently to the right forearm which has been repaired at her place of residence. Also has some neck pain. No back pain. There was no loss of consciousness. No chest pain or shortness of breath. She is noting that she is still kind of feels foggy in her head but admittedly this is a chronic problem. Related Data Home Medications ?Medication ?Instructions ?Recorded ?Confirmed cholecalciferol (vitamin D3) 25 1,000 unit PO DAILY 07/24/22 05/31/25 mcg (1,000 unit) tablet cyanocobalamin (vitamin B-12) 1,000 mcg PO DAILY 07/24/22 05/31/25 1,000 mcg tablet sennosides 8.6 mg tablet 8.6 mg PO DAILY 07/24/22 05/31/25 omega 4-fjz-[id number]-fish oil 100 1 cap PO QDAY 02/26/23 05/31/25 mg-160 mg-1,000 mg capsule (Fish Oil) docusate sodium [Colace] 1 cap PO DAILY 05/31/25 05/31/25 Previous Rx's ?Medication ?Instructions ?Recorded clopidogrel 75 mg tablet 75 mg PO DAILY #90 tabs 11/30/24 diltiazem HCl 120 mg 120 mg PO DAILY #90 caps 11/30/24 capsule,extended release 24 hr fluoxetine 20 mg capsule 20 mg PO QAM #90 caps 11/30/24 rosuvastatin 40 mg tablet 40 mg PO DAILY #90 tabs 11/30/24 Allergies Allergy/AdvReac Type Severity Reaction Status Date / Time No Known Drug Allergies Allergy Verified 06/11/25 11:47 Review of Systems Status of ROS: Reports: 6 or more systems reviewed and unremarkable except as noted in History and below PFSH PFSH Surgical History 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) ?Z96.642 - Presence of left artificial hip joint (ICD-10) History of total right hip replacement (02/20/12) ?Z96.641 - Presence of right artificial hip joint (ICD-10) History of phacoemulsification of cataract of both eyes with intraocular lens implantation ?Z98.41 - Cataract extraction status, right eye (ICD-10) ?Z98.42 - Cataract extraction status, left eye (ICD-10) ?Z96.1 - Presence of intraocular lens (ICD-10) History of YAG laser capsulotomy of lens of left eye ?Z98.42 - Cataract extraction status, left eye (ICD-10) History of tenotomy (01/26/19) ?Z98.890 - Other specified postprocedural states (ICD-10) History of melanoma excision ?Z98.890 - Other specified postprocedural states (ICD-10) ?Z85.820 - Personal history of malignant melanoma of skin (ICD-10) History of tonsillectomy ?Z90.89 - Acquired absence of other organs (ICD-10) History of squamous cell carcinoma excision (2002) ?Z98.890 - Other specified postprocedural states (ICD-10) ?Z85.9 - Personal history of malignant neoplasm, unspecified (ICD-10) History of repair of rotator cuff (1984) ?Z98.890 - Other specified postprocedural states (ICD-10) History of mitral valve replacement (2016) ?Z95.2 - Presence of prosthetic heart valve (ICD-10) History of hysterectomy ?Z90.710 - Acquired absence of both cervix and uterus (ICD-10) Social History Narrative: lives alone. . Non-smoker. What is your current living situation?: I presently have a place to live Problems where you live: no known problems In the past 12 months, utilities in danger of being shut off: no In past 12 months, lack of transportation kept you from medical appts, meetings, work, or getting things needed for daily living: no In the past 12 mos, have been you worried that your food would run out before you had money to buy more?: never true In the past 12 mos, the food you bought just didn't last and you didn't have money to buy more?: never true Smoking Status: Never smoker Do you use any of these nicotine containing products: None Second hand tobacco smoke exposure: No How often do you have a drink containing alcohol: never How often do you have six or more drinks on one occasion: Never AUDIT-C Alcohol total score: 0 Non-prescribed substance use: denies use How often does anyone, including family, friends and others, physically hurt you: never How often does anyone, including family, friends and others, insult or talk down to you: never How often does anyone, including family, friends and others, threaten you with harm: never How often does anyone, including family, friends and others, scream or curse at you: never service: No Exam Narrative: Exam Narrative: Very pleasant. NAD. Appears little bit tired. Head is normocephalic with where I think where she bumped it I think is the right posterior occipital area. Lightly swollen here perhaps relative to the left. Neck is generally sore to palpation but not exactly midline. More in the paracervical musculature right greater than left. Dentition noted intact. No pain to palpation over the back. She is breathing easily lungs are clear. Heart in regular rate and rhythm. Moving all extremities without difficulty. There is a Telfa which is lightly blood-stained placed on the extensor surface of the upper forearm. She flexes and extends the elbow without difficulty. She has no pain to palpation of the clavicles or shoulders. Removing this Telfa pad reveals Steri-Strips skin tear which looks to have been well approximated I do not think will require any intervention here. Const: Documenting provider has reviewed patient's vital signs: yes Course Vital Signs Vital signs: Initial Vital Signs Temperature 97.5 F L 06/11/25 11:47 Temperature Source Temporal Artery Scan 06/11/25 11:47 Pulse Rate 79 06/11/25 11:47 Respiratory Rate 20 06/11/25 11:47 Blood Pressure 170/82 H 06/11/25 11:47 Blood Pressure Mean 111 H 06/11/25 11:47 Blood Pressure Position Sitting 06/11/25 11:47 Pulse Oximetry 99 06/11/25 11:47 Oxygen Delivery Method Room Air 06/11/25 11:47 Vital Signs Temperature 97.5 F L 06/11/25 11:47 Pulse Rate 79 06/11/25 11:47 Respiratory Rate 20 06/11/25 11:47 Blood Pressure 170/82 H 06/11/25 11:47 Pulse Oximetry 99 06/11/25 11:47 Oxygen Delivery Method Room Air 06/11/25 11:47 Temperature 97.5 F L 06/11/25 11:47 Pulse Rate 79 06/11/25 11:47 Respiratory Rate 20 06/11/25 11:47 Blood Pressure 170/82 H 06/11/25 11:47 Pulse Oximetry 99 06/11/25 11:47 Oxygen Delivery Method Room Air 06/11/25 11:47 Medical Decision Making MDM Narrative Medical decision making narrative: I think it is unlikely that she has a head bleed from this experience. Further is not anticoagulated. Chronic difficulties appear to have contributed to this fall. Would image her cervical spine at this point. I do not think further workup is necessary. CT scan of cervical spine is done. INDICATION: Right-sided neck pain, status post fall TECHNIQUE: CT cervical spine without contrast. COMPARISON: CT cervical spine 07/26/2023 FINDINGS: Vertebrae: Similar straightening of the cervical lordosis and mild dextrocurvature. Unchanged grade 1 anterolisthesis of C7 on T1. Vertebral body heights are maintained. No acute fracture or traumatic subluxation. Discs and facet joints: Degenerative change at the atlantodental articulation. Similar multilevel facet joint osteoarthrosis most prominent at C4-C5, multilevel disc space narrowing, and osteophyte formation. Similar spinal canal narrowing at C6. Unchanged severe neuroforaminal stenosis on the left at C4-C6 and on the right at C4-C5 Extraspinal findings: Similar multinodular bilateral thyroid, the largest hypoattenuating nodule in the right inferior lobe measures 1.9 cm IMPRESSION: 1. No sign of acute injury. 2. Similar multilevel degenerative spondylosis. 3. Unchanged multinodular thyroid. Please note that all CT scans at this facility use dose modulation, iterative reconstruction, and/or weight-based dosing when appropriate to reduce radiation dose to as low as reasonably achievable. Dictated by Madyson Cheng MD @ 06/11/2025 12:39:46 PM Chronic findings in CT imaging. Did offer a soft collar for maybe some symptom relief. This was placed. Potentially helpful she says time will tell. See patient discharge plan for further discussion Can wear this soft collar as needed for comfort over this next week. Return for marked increase in headache or unusual somnolence. Take care in transitions as usual. Medical Records Medical records reviewed: Yes I reviewed the patient's medical records Discharge Plan Discharge Clinical Impression: Closed head injury, History of dizziness, Skin tear Patient Disposition: Home w/ Parent or Adult Condition: Stable Additional Instructions: Can wear this soft collar as needed for comfort over this next week. Return for marked increase in headache or unusual somnolence. Take care in transitions as usual. Prescriptions: No Action cyanocobalamin (vitamin B-12) 1,000 mcg tablet 1,000 mcg PO DAILY cholecalciferol (vitamin D3) 25 mcg (1,000 unit) tablet 1,000 unit PO DAILY sennosides 8.6 mg tablet 8.6 mg PO DAILY Fish Oil 100-160-1,000 mg capsule 1 cap PO QDAY rosuvastatin 40 mg tablet 40 mg PO DAILY Qty: 90 3RF fluoxetine 20 mg capsule 20 mg PO QAM Qty: 90 3RF diltiazem HCl 120 mg capsule,extended release 24hr 120 mg PO DAILY Qty: 90 3RF clopidogrel 75 mg tablet 75 mg PO DAILY Qty: 90 3RF docusate sodium [Colace] 1 cap PO DAILY Follow Up/Referrals: Teagan Garcia MD [Primary Care Provider, Internal Medicine] Stand Alone Forms: [facility] Info Inst[facility]
== END 2025-06-11 13:08 | disposition home or self-care (01) ==
PROVIDERS: Emergency Provider Family Medicine; PCP Internal Medicine
DX: M54.2 Cervicalgia (principal); S51.811A Laceration without foreign body of right forearm, initial encounter; W18.30XA Fall on same level, unspecified, initial encounter
CPT/HCPCS: 72125; 99284

== ENCOUNTER 2025-09-20 08:18 | Outpatient (CLI) | payer MEDICARE, BC, SELFPAY | END 2025-09-20 08:19 | disposition home or self-care (01) | LOC: AMB 09-22 19:33 | PROVIDERS: PCP Internal Medicine; Visit Provider Family Medicine | DX: S09.90XA Unspecified injury of head, initial encounter (principal); W01.10XA Fall on same level from slipping, tripping and stumbling with subsequent striking against unspecified object, initial encounter; Y92.032 Bedroom in apartment as the place of occurrence of the external cause | CPT/HCPCS: A0425; A0427 ==

== ENCOUNTER 2025-09-20 08:55 | Observation (INO) | payer MEDICARE, BC, SELFPAY ==
[2025-09-20] VITALS (50 sets, daily range): BP systolic 119–209; BP diastolic 71–118; PULSE 76–96; RESP 12–39; TEMP 36.4–37.1; O2SAT 92–100; BMI 22.5
--- NOTE | 2025-09-20 09:01 | CRLHL7_ITS ---
For Patients: As a result of the Century Cures Act, medical imaging exams and procedure reports are released immediately into your electronic medical record. You may view this report before your referring provider. If you have questions, please contact your health care provider. INDICATION: Fall, trauma. COMPARISON: 06/11/2025 TECHNIQUE: CT of the cervical spine without contrast. Multiplanar axial, coronal, and sagittal reformats were reconstructed. FINDINGS: No fracture. Straightening of the normal cervical lordosis. No acute malalignment. Multilevel advanced disc degenerative change. Multilevel severe facet arthritis, including facet fusion on the left at C3 through C5. Multilevel bilateral neural foraminal narrowing. No severe osseous central canal stenosis. No destructive bony lesions. No cervical prevertebral soft tissue swelling. IMPRESSION: No acute or traumatic cervical spine findings. Please note that all CT scans at this facility use dose modulation, iterative reconstruction, and/or weight-based dosing when appropriate to reduce radiation dose to as low as reasonably achievable. Dictated by Marnie Mcelroy MD @ 09/20/2025 9:31:04 AM (Electronically Signed)
--- NOTE | 2025-09-20 09:01 | CRLHL7_ITS ---
For Patients: As a result of the Century Cures Act, medical imaging exams and procedure reports are released immediately into your electronic medical record. You may view this report before your referring provider. If you have questions, please contact your health care provider. INDICATION: Fall, trauma. COMPARISON: 12/03/2023 TECHNIQUE: CT of the brain / head without intravenous contrast. Multiplanar axial, coronal, and sagittal reformats were reconstructed. FINDINGS: No intracranial hemorrhage. Age-related parenchymal volume loss. No acute or subacute cortically based infarct. Near confluence periventricular white matter hypodensities may be related to chronic microvascular ischemia. Heavy atherosclerosis. No mass or mass effect. Normal ventricles. No skull fractures. No worrisome focal bone lesion. Small left parietal scalp hematoma/contusion. IMPRESSION: Small left parietal scalp hematoma/contusion. No intracranial hemorrhage. No skull fracture. Please note that all CT scans at this facility use dose modulation, iterative reconstruction, and/or weight-based dosing when appropriate to reduce radiation dose to as low as reasonably achievable. Dictated by Marnie Mcelroy MD @ 09/20/2025 9:26:26 AM (Electronically Signed)
--- NOTE | 2025-09-20 09:01 | CRLHL7_ITS ---
For Patients: As a result of the Century Cures Act, medical imaging exams and procedure reports are released immediately into your electronic medical record. You may view this report before your referring provider. If you have questions, please contact your health care provider. INDICATION: Fall with trauma. Posterior trochanteric pain TECHNIQUE: CT pelvis without contrast. COMPARISON: None FINDINGS: Bones: Alignment is normal. No sign of acute fracture. No suspicious bony lesions. 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 Distal tips not included in the field of view. No proximal femoral fractures. Moderate L5-S1 disc space narrowing with small disc protrusion. Advanced facet arthrosis L4-5 and L5-S1. Mild degenerative changes at the SI joints. Moderate osteitis pubis. Intrapelvic contents: Moderate bladder distention. No pelvic mass or adenopathy. No retroperitoneal hemorrhage or free fluid. Soft tissues: No soft tissue hematomas. IMPRESSION: 1. No pelvic fractures or deformities. 2. Bilateral ISAIAS are well-seated and aligned without complications. 3. Moderate distention of the bladder. No acute intrapelvic soft tissue abnormalities. 4. Additional chronic findings as above. No acute or significant findings. Please note that all CT scans at this facility use dose modulation, iterative reconstruction, and/or weight-based dosing when appropriate to reduce radiation dose to as low as reasonably achievable. Dictated by Daniel Aguila MD @ 09/20/2025 9:32:20 AM (Electronically Signed)
--- NOTE | 2025-09-20 09:01 | ED.GENADULT ---
HPI - General Adult General Chief complaint: Fall/Minor Trauma Stated complaint: Fall Time Seen by Provider: 09/20/25 09:01 History of Present Illness HPI narrative: Patient lives in an [facility] at [facility]. Got up to use the bathroom. When finished, stood up to pull her pants up and fell forward. Patient does not recall if she loss consciousness. Did push her button and staff came in and called 911. Complains of left hip/pelvic pain, left head and neck pain. TTA called on arrival. 85-year-old woman presenting to the emergency department following a trip and fall event as she reports that in the bathroom at this morning. Struck her head on the sink edge I understand as she fell. Trauma Team is activated upon arrival.She does not believe she lost consciousness. No chest pain or shortness of breath. Was found on the floor of the bathroom following other pushing her alert. Does live in assisted living. Is having left hip area pain in left neck and head pain. No shortness of breath. Past medical reviewed includes postural perceptual dizziness and PVC is and Mitral valve replacement Related Data Home Medications ?Medication ?Instructions ?Recorded ?Confirmed cholecalciferol (vitamin D3) 25 1,000 unit PO HS 07/24/22 09/20/25 mcg (1,000 unit) tablet cyanocobalamin (vitamin B-12) 1,000 mcg PO DAILY 07/24/22 09/20/25 1,000 mcg tablet sennosides 8.6 mg tablet 34.4 mg PO HS 07/24/22 09/20/25 omega 5-jfq-loo-fish oil 100 1 cap PO QDAY 02/26/23 09/20/25 mg-160 mg-1,000 mg capsule (Fish Oil) acetaminophen 500 mg tablet 1,000 mg PO TID 09/20/25 09/20/25 clopidogrel 75 mg tablet 75 mg PO HS 09/20/25 09/20/25 docusate sodium 100 mg capsule 100 mg PO HS 09/20/25 09/20/25 (Colace) ibuprofen 200 mg tablet (Advil) 400 mg PO BID 09/20/25 09/20/25 rosuvastatin 40 mg tablet 40 mg PO HS 09/20/25 09/20/25 Previous Rx's ?Medication ?Instructions ?Recorded diltiazem HCl 120 mg 120 mg PO DAILY #90 caps 11/30/24 capsule,extended release 24 hr fluoxetine 20 mg capsule 20 mg PO QAM #90 caps 11/30/24 omeprazole 20 mg capsule,delayed 20 mg PO DAILY #30 caps 09/21/25 release rosuvastatin 10 mg tablet 40 mg (4 x 10 mg) PO HS #30 tabs 09/21/25 Allergies Allergy/AdvReac Type Severity Reaction Status Date / Time No Known Drug Allergies Allergy Verified 06/11/25 11:47 Review of Systems Status of ROS: Reports: 6 or more systems reviewed and unremarkable except as noted in History and below [facility] Medical History (Updated 09/20/25 @ 16:26 by Miguel Ángel Rutledge MD) Frequent falls ?R29.6 - Repeated falls (ICD-10) Chest pain ?R07.9 - Chest pain, unspecified (ICD-10) Persistent postural-perceptual dizziness ?R42 - Dizziness and giddiness (ICD-10) Fullness in head ?R68.89 - Other general symptoms and signs (ICD-10) Frailty syndrome in geriatric patient ?R54 - Age-related physical debility (ICD-10) Dementia ?F03.90 - Unspecified dementia, unspecified severity, without behavioral disturbance, psychotic disturbance, mood disturbance, and anxiety (ICD-10) Near syncope ?R55 - Syncope and collapse (ICD-10) Urinary retention ?R33.9 - Retention of urine, unspecified (ICD-10) Surgical History 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) ?Z96.642 - Presence of left artificial hip joint (ICD-10) History of total right hip replacement (02/20/12) ?Z96.641 - Presence of right artificial hip joint (ICD-10) History of phacoemulsification of cataract of both eyes with intraocular lens implantation ?Z98.41 - Cataract extraction status, right eye (ICD-10) ?Z98.42 - Cataract extraction status, left eye (ICD-10) ?Z96.1 - Presence of intraocular lens (ICD-10) History of YAG laser capsulotomy of lens of left eye ?Z98.42 - Cataract extraction status, left eye (ICD-10) History of tenotomy (01/26/19) ?Z98.890 - Other specified postprocedural states (ICD-10) History of melanoma excision ?Z98.890 - Other specified postprocedural states (ICD-10) ?Z85.820 - Personal history of malignant melanoma of skin (ICD-10) History of tonsillectomy ?Z90.89 - Acquired absence of other organs (ICD-10) History of squamous cell carcinoma excision (2002) ?Z98.890 - Other specified postprocedural states (ICD-10) ?Z85.9 - Personal history of malignant neoplasm, unspecified (ICD-10) History of repair of rotator cuff (1984) ?Z98.890 - Other specified postprocedural states (ICD-10) History of mitral valve replacement (2017) ?Z95.2 - Presence of prosthetic heart valve (ICD-10) History of hysterectomy ?Z90.710 - Acquired absence of both cervix and uterus (ICD-10) Social History (Updated 09/20/25 @ 16:11 by Miguel Ángel Rutledge MD) Narrative: Lives at [facility]. Accompanied today by son and [id number]. Remote history of smoking. Drinks 1 glass of wine a day. What is your current living situation?: I presently have a place to live Problems where you live: no known problems Problems where you live details: NA In the past 12 months, utilities in danger of being shut off: no In past 12 months, lack of transportation kept you from medical appts, meetings, work, or getting things needed for daily living: no In the past 12 mos, have been you worried that your food would run out before you had money to buy more?: never true In the past 12 mos, the food you bought just didn't last and you didn't have money to buy more?: never true Highest level of school completed/degree received: Bachelor's degree Smoking Status: Former smoker Second hand tobacco smoke exposure: No How often do you have a drink containing alcohol: 4 or more times a week Alcohol type: wine How many standard drinks containing alcohol do you have on a typical day: 1 or 2 How often do you have six or more drinks on one occasion: Never AUDIT-C Alcohol total score: 4 Non-prescribed substance use: denies use Caffeine: Yes (coffee) How often does anyone, including family, friends and others, physically hurt you: never How often does anyone, including family, friends and others, insult or talk down to you: never How often does anyone, including family, friends and others, threaten you with harm: never How often does anyone, including family, friends and others, scream or curse at you: never service: No Exam Narrative: Exam Narrative: Primary survey Vitals She is breathing easily. Airway is open. Do not appreciate any bleeding GCS of 15. Pupils are 2 mm and equal and appropriately responsive. She is able to move all extremities though sore and with pain in many locations. Secondary survey Head with soft swelling on the left posterior parietal scalp. Tender here as well. Neck is secured in a cervical collar. She is tender to palpation left greater than right paracervical musculature. Chest is without pain to palpation over the clavicles or shoulders. She is sore in tremulous though but able to raise both arms. Little bruised over the extensor surfaces. Heart in elevated rate but regular rhythm. No pain to palpation over the abdomen. Soft. No pain to palpation over anterior hips. She is tender left greater than right posterior greater trochanter area. A little bit on the inferior ischium bilaterally. Well-healed surgical scar over the knee. No lower extremity edema. Well-perfused. Back is without pain or deformity. Lungs appear clear. Const: Vital Signs, click to edit/add: Vital Signs - 24 hr 09/20/25 09:02 09/20/25 09:10 09/20/25 09:26 Temperature 97.6 F Pulse Rate 87 Pulse Rate [Pulse Oximeter] 85 Pulse Rate [orthos tatic lying Pulse Oximeter] Pulse Rate [orthos tatic sitting Puls e Oximeter] Pulse Rate [orthos tatic standing Pul se Oximeter] Respiratory Rate 16 25 H Blood Pressure 121/93 H Blood Pressure [Ri ght Upper Arm] 121/93 H Blood Pressure [or thostatic lying Ri ght Arm] Blood Pressure [or thostatic sitting Right Arm] Blood Pressure [or thostatic standing Right Arm] Pulse Oximetry 99 98 99 Oxygen Delivery Me thod Room Air 09/20/25 09:27 09/20/25 09:30 09/20/25 09:36 Temperature Pulse Rate 83 87 89 Pulse Rate [Pulse Oximeter] Pulse Rate [orthos tatic lying Pulse Oximeter] Pulse Rate [orthos tatic sitting Puls e Oximeter] Pulse Rate [orthos tatic standing Pul se Oximeter] Respiratory Rate 35 H 39 H 25 H Blood Pressure 209/98 H Blood Pressure [Ri ght Upper Arm] Blood Pressure [or thostatic lying Ri ght Arm] Blood Pressure [or thostatic sitting Right Arm] Blood Pressure [or thostatic standing Right Arm] Pulse Oximetry 100 96 100 Oxygen Delivery Me thod 09/20/25 09:36 09/20/25 09:45 09/20/25 09:47 Temperature Pulse Rate 89 90 86 Pulse Rate [Pulse Oximeter] Pulse Rate [orthos tatic lying Pulse Oximeter] Pulse Rate [orthos tatic sitting Puls e Oximeter] Pulse Rate [orthos tatic standing Pul se Oximeter] Respiratory Rate 25 H 35 H 27 H Blood Pressure 209/98 H 197/103 H Blood Pressure [Ri ght Upper Arm] Blood Pressure [or thostatic lying Ri ght Arm] Blood Pressure [or thostatic sitting Right Arm] Blood Pressure [or thostatic standing Right Arm] Pulse Oximetry 100 98 99 Oxygen Delivery Ri thod 09/20/25 10:11 09/20/25 10:15 09/20/25 10:19 Temperature Pulse Rate 85 80 Pulse Rate [Pulse Oximeter] Pulse Rate [orthos tatic lying Pulse Oximeter] Pulse Rate [orthos tatic sitting Puls e Oximeter] Pulse Rate [orthos tatic standing Pul se Oximeter] Respiratory Rate 37 H 23 23 Blood Pressure 203/94 H Blood Pressure [Ri ght Upper Arm] Blood Pressure [or thostatic lying Ri ght Arm] Blood Pressure [or thostatic sitting Right Arm] Blood Pressure [or thostatic standing Right Arm] Pulse Oximetry 99 98 Oxygen Delivery Ri thod 09/20/25 10:20 09/20/25 10:30 09/20/25 10:32 Temperature Pulse Rate 79 88 86 Pulse Rate [Pulse Oximeter] Pulse Rate [orthos tatic lying Pulse Oximeter] Pulse Rate [orthos tatic sitting Puls e Oximeter] Pulse Rate [orthos tatic standing Pul se Oximeter] Respiratory Rate 22 20 15 Blood Pressure 180/94 H Blood Pressure [Ri ght Upper Arm] Blood Pressure [or thostatic lying Ri ght Arm] Blood Pressure [or thostatic sitting Right Arm] Blood Pressure [or thostatic standing Right Arm] Pulse Oximetry 98 100 97 Oxygen Delivery Ri thod 09/20/25 10:33 09/20/25 10:45 09/20/25 10:47 Temperature Pulse Rate 86 89 90 Pulse Rate [Pulse Oximeter] Pulse Rate [orthos tatic lying Pulse Oximeter] Pulse Rate [orthos tatic sitting Puls e Oximeter] Pulse Rate [orthos tatic standing Pul se Oximeter] Respiratory Rate 13 13 16 Blood Pressure 200/98 H Blood Pressure [Ri ght Upper Arm] Blood Pressure [or thostatic lying Ri ght Arm] Blood Pressure [or thostatic sitting Right Arm] Blood Pressure [or thostatic standing Right Arm] Pulse Oximetry 100 98 97 [facility]:00 09/20/25 11:02 09/20/25 11:15 Temperature Pulse Rate 87 86 90 Pulse Rate [Pulse Oximeter] Pulse Rate [orthos tatic lying Pulse Oximeter] Pulse Rate [orthos tatic sitting Puls e Oximeter] Pulse Rate [orthos tatic standing Pul se Oximeter] Respiratory Rate 20 16 17 Blood Pressure 167/81 H Blood Pressure [Ri ght Upper Arm] Blood Pressure [or thostatic lying Ri ght Arm] Blood Pressure [or thostatic sitting Right Arm] Blood Pressure [or thostatic standing Right Arm] Pulse Oximetry 98 98 97 [facility] 11:17 09/20/25 11:17 09/20/25 11:33 Temperature Pulse Rate 89 89 89 Pulse Rate [Pulse Oximeter] Pulse Rate [orthos tatic lying Pulse Oximeter] Pulse Rate [orthos tatic sitting Puls e Oximeter] Pulse Rate [orthos tatic standing Pul se Oximeter] Respiratory Rate 20 20 13 Blood Pressure 143/81 H 143/81 H 119/71 Blood Pressure [Ri ght Upper Arm] Blood Pressure [or thostatic lying Ri ght Arm] Blood Pressure [or thostatic sitting Right Arm] Blood Pressure [or thostatic standing Right Arm] Pulse Oximetry 98 98 97 [facility] 12:14 Temperature Pulse Rate Pulse Rate [Pulse Oximeter] Pulse Rate [orthos tatic lying Pulse Oximeter] 79 Pulse Rate [orthos tatic sitting Puls e Oximeter] 86 Pulse Rate [orthos tatic standing Pul se Oximeter] 95 Respiratory Rate Blood Pressure Blood Pressure [Ri ght Upper Arm] Blood Pressure [or thostatic lying Ri ght Arm] 156/74 H Blood Pressure [or thostatic sitting Right Arm] 147/118 H Blood Pressure [or thostatic standing Right Arm] 132/92 H Pulse Oximetry Oxygen Delivery Me thod Documenting provider has reviewed patient's vital signs: yes Course Vital Signs Vital signs: Initial Vital Signs Temperature 97.6 F 09/20/25 09:02 Temperature Source Temporal Artery Scan 09/20/25 09:02 Pulse Rate 85 09/20/25 09:02 Pulse Rhythm Regular 09/20/25 09:02 Pulse Strength 3+ Normal 09/20/25 09:02 Respiratory Rate 16 09/20/25 09:02 Blood Pressure 121/93 H 09/20/25 09:02 Blood Pressure Mean 102 09/20/25 09:02 Blood Pressure Position Sitting 09/20/25 09:02 Pulse Oximetry 99 09/20/25 09:02 Oxygen Delivery Method Room Air 09/20/25 09:02 Vital Signs Temperature 97.6 F 09/20/25 09:02 Pulse Rate 85 09/20/25 09:02 Respiratory Rate 16 09/20/25 09:02 Blood Pressure 121/93 H 09/20/25 09:02 Pulse Oximetry 99 09/20/25 09:02 Oxygen Delivery Method Room Air 09/20/25 09:02 Temperature 98.2 F 09/21/25 07:49 Pulse Rate 72 09/21/25 11:00 Respiratory Rate 18 09/21/25 11:00 Blood Pressure 155/79 H 09/21/25 11:00 Pulse Oximetry 97 09/21/25 11:00 Oxygen Delivery Method Room Air 09/21/25 11:00 Medications Administered Medications: Generic Name Dose Route Start Last Admin Trade Name Freq PRN Reason Stop Dose Admin Acetaminophen 650 mg 09/20/25 14:42 09/21/25 08:11 Acetaminophen 325 Mg Tablet PO 650 mg Q4H PRN Administration Clopidogrel Bisulfate 75 mg 09/20/25 21:00 09/20/25 20:58 Clopidogrel 75 Mg Tablet PO 75 mg HS ALE Administration Diltiazem HCl 120 mg 09/21/25 09:00 09/21/25 09:25 Diltiazem 120 Mg Cap.Er.24h PO 120 mg DAILY ALE Administration Docusate Sodium 100 mg 09/20/25 21:00 09/20/25 21:00 Docusate Sodium 100 Mg Capsule PO 100 mg HS ALE Administration Fluoxetine HCl 20 mg 09/21/25 09:00 09/21/25 09:25 Fluoxetine Hcl 20 Mg Capsule PO 20 mg DAILY ALE Administration Omeprazole 40 mg 09/21/25 07:00 09/21/25 06:16 Omeprazole [address] PO 40 mg DAILY@0700 ALE Administration Rosuvastatin Calcium 40 mg 09/20/25 21:00 09/20/25 21:01 Rosuvastatin Calcium 10 Mg Tablet PO 40 mg HS ALE Administration Sennosides 4 tab 09/20/25 21:00 09/20/25 20:59 Sennosides 1 Tab Tablet PO 4 tab HS ALE Administration Sodium Chloride 5 ml 09/20/25 21:00 09/21/25 09:26 Sodium Chloride 0.9 % (Flush) 10 Ml Syringe IVF 5 ml BID ALE Administration Discontinued Medications Generic Name Dose Route Start Last Admin Trade Name Freq PRN Reason Stop Dose Admin Acetaminophen 1,000 mg 09/20/25 10:19 09/20/25 10:24 Acetaminophen 500 Mg Tablet PO 09/20/25 10:20 1,000 mg ONCE ONE Administration Sodium Chloride 500 mls @ 500 mls/hr 09/20/25 11:29 09/20/25 12:50 0.9 % Sodium Chloride 500 Ml IV 09/20/25 12:28 Infused .Q1H ONE Infusion Potassium Bicarbonate 50 meq 09/21/25 07:01 09/21/25 08:08 Potassium Bicarb 25 Meq Effervescent Tab PO 09/21/25 07:02 50 meq ONCE ONE Administration Medical Decision Making [facility] Narrative Medical decision making narrative: Trauma cares will necessitate scans of head and neck and pelvis. Seems generally shook up. This the setting of dementia I think contributing to some degree of weakness we are seeing here today. I do not think she has been down long enough to have developed rhabdomyolysis. Was requesting urinary catheter but did manage to void about 250 of 500 mL. She does report apparently to nursing that she does often have some degree of retention. Head CT independently reviewed by me with hematoma, small in the area of parietal scalp consistent with physical exam of the left. Radiology over-read of cervical spine with degenerative changes including fusion of facets left-sided C3 through C5. CT pelvis INDICATION: Fall with trauma. Posterior trochanteric pain TECHNIQUE: CT pelvis without contrast. COMPARISON: None FINDINGS: Bones: Alignment is normal. No sign of acute fracture. No suspicious bony lesions. 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 Distal tips not included in the field of view. No proximal femoral fractures. Moderate L5-S1 disc space narrowing with small disc protrusion. Advanced facet arthrosis L4-5 and L5-S1. Mild degenerative changes at the SI joints. Moderate osteitis pubis. Intrapelvic contents: Moderate bladder distention. No pelvic mass or adenopathy. No retroperitoneal hemorrhage or free fluid. Soft tissues: No soft tissue hematomas. IMPRESSION: 1. No pelvic fractures or deformities. 2. Bilateral ISAIAS are well-seated and aligned without complications. 3. Moderate distention of the bladder. No acute intrapelvic soft tissue abnormalities. 4. Additional chronic findings as above. No acute or significant findings. Transitioning after going to the bathroom appears to have encountered a near syncopal event. There is underlying history of postural perceptual dizziness. Appears to have had an orthostatic event. Perhaps this is what occurred this morning? May require further head imaging or perhaps some degree of urinary retention is contributing to inappropriate/vasovagal reactions? Did ask Physical therapy to assess. Clearly too weak, unstable to return to current living situation this time. Discussed with hospitalist for admission. Medical Records Medical records reviewed: Yes I reviewed the patient's medical records Lab Data Lab results reviewed: Yes I reviewed the patient's lab results Labs: Lab Results 09/20/25 09/20/25 Range/Units 09:00 09:01 WBC 6.48 (4.50-11.00) K/uL RBC 4.07 (4.00-5.20) m/uL Hgb 13.5 (12.0-16.0) gm/dL Hct 41.1 (33.0-51.0) % MCV 101 H (80-100) fL MCH 33 (26-34) pg MCHC 33 (32-36) gm/dL RDW Coeff of Katia 11.7 (11.5-15.5) % Plt Count 243 (140-440) K/uL Neut % (Auto) 63.7 (42.0-72.0) % Lymph % (Auto) 28.2 (20-44) % Hughes % (Auto) 5.9 (0.0-11.0) % Eos % (Auto) 1.2 (0.0-7.0) % Baso % (Auto) 0.8 (0.0-3.0) % Neut # (Auto) 4.13 (1.7-7.0) K/uL Lymph # (Auto) 1.83 (0.90-2.90) K/uL Hughes # (Auto) 0.40 (0.00-0.90) K/UL Eos # (Auto) 0.08 (0.00-0.50) K/uL Baso # (Auto) 0.05 (0.00-0.30) K/uL Abs Immat Gran (auto) 0.01 (0.00-0.30) K/uL Imm/Tot Granulo (auto) 0.2 % Sodium 135 (135-149) mmol/L Potassium 4.0 (3.6-5.1) mmol/L Chloride 96 (96-114) mmol/L Carbon Dioxide 25 (20-32) mmol/L Anion Gap 14 (7-15) mEq/L BUN 14 (7-30) mg/dL Creatinine 0.6 (0.5-1.5) mg/dL Estimated Creat Clear 35.66 Estimated GFR 87 ml/min Glucose 95 (60-115) mg/dL Calcium 9.4 (8.4-10.6) mg/dL Troponin I < 0.01 (0.01-0.04) ng/mL POC Troponin I 0.03 (0.01-0.04) ng/ml ECG Data Attestation: I personally reviewed and interpreted this ECG as follows: (Sinus rhythm. PAC. Evolving RBBB. rate of 85) Critical Care Time Critical Care Time Critical Care Time: Yes Attestation: The patient required my highest level preparedness to intervene emergently and I personally spent this critical care time directly and personally managing the patient. This critical care time included: Obtaining a history; Examining the patient; Pulse oximetry; Ordering and reviewing of studies; Arranging urgent treatment with development of a management plan; Evaluation of patients response to treatment; Frequent reassessment discussions with other providers. This critical care time was performed to assess and manage the high probability of imminent life-threatening deterioration that could result in multiorgan failure. It was exclusive of separate billable procedures and treating other patients and teaching time. Total Critical Care Time in Minutes: 60 Discharge Plan Discharge Clinical Impression: Closed head injury, Near syncope, PAC (premature atrial contraction), Urinary retention Patient Disposition: Admitted As Observation Condition: Stable Activity Level: Activity as Tolerated and Use Walker Discharge Diet: Regular
--- OUTSIDE RECORDS SUMMARY | 2025-09-20 09:04 | XMS_ITS | Clinical Summary ---
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 (current) use of anticoagulants 02/25/2012 03/18/2012 Immunizations [...] on file Legal Sex Female 8:17 AM COLLECTIONS REPRESENTATIVE Gender Identity Not on file Sexual Orientation [...] 36.8 C (98.3 F) 12/01/2019 2:42 PM COLLECTIONS REPRESENTATIVE Respiratory Rate 14 08/05/2020 1:42 PM CDT [...] 02/13/2012 (Declined) Medical Devices Implanted Type Area Soap Worker Device Identifier Shelf Expiration Date Model / Serial / Lot Valve Mitral 27mm Mosaic Tissue - [id number] Implanted:Qty: 1 on 10/09/2017 by Arian Alonzo MD at [facility] N/A: Mitral Valve [employer] Cardiac Surgery 07/30/2022 [id number] / [id number] / Procedures Procedure Name Priority Date/Time Associated [...] Relevant to Health Maintenance Insurance [place] MR PB ONLY [place] HB ONLY MEDICARE PART B HB ONLY MEDICARE PART A HB ONLY Advance Directives * Full Code (Latest Code Status on File) Date Activated Date Inactivated Comments 10/10/2017 8:10 AM 10/16/2017 4:15 PM * Full Code Date Activated Date Inactivated Comments 10/09/2017 6:00 AM 10/09/2017 11:27 AM Care Teams Hatchery Laborer Relationship Specialty Start Date End Date Teagan Garcia MD [address] [place] [address] PCP - General Internal Medicine 10/28/17
--- OUTSIDE RECORDS SUMMARY | 2025-09-20 09:04 | XMS_ITS | Clinical Summary ---
Author Organization [facility] Address [address] [facility] [address] , [address] [place] [address] Phone Care Team Providers Care Circulating Process Inspector Name Role Phone [facility] Unavailable Unava ilable Conditions or Problems Problem Name Problem Code Onset Date Status Entry Date Provider Comment Standard Description Annotate Stroke [id number] (SNOMED CT) Active Clarence Cottrell MD Cerebrovascular accident Medications Medication Instructions Start Date Stop Date Generic Name NDC Provider ROSUVASTATIN CALCIUM 20 MG TABS TAKE ONE TABLET BY MOUTH ONE TIME DAILY rosuvastatin [id number] Clarence Cottrell MD DILTIAZEM HCL ER COATED BEADS 120 MG [id number] TAKE ONE CAPSULE BY MOUTH ONE TIME DAILY diltiazem hcl [id number] Clarence Cottrell MD CLOPIDOGREL BISULFATE 75 MG TABS TAKE ONE TABLET BY MOUTH ONE TIME DAILY clopidogrel [id number] Clarence Cottrell MD Medications Administered No information [...] Procedures Code Procedure Name Date Entry Date [id number] MRA-Neck W/WO [id number] MRA-Head W/O ORDERS Patient to call for [...]
[2025-09-20 09:12] LABS: Hematocrit* 41.1 % (33.0-51.0); Hemoglobin* 13.5 gm/dL (12.0-16.0); Immature Granulocytes Abs Auto 0.01 K/uL (0.00-0.30); Immature Granulocytes Pct Auto 0.2 %; Lymphocytes Absolute Auto 1.83 K/uL (0.90-2.90); Mean Corpuscular HGB Conc 33 gm/dL (32-36); Mean Corpuscular Hemoglobin 33 pg (26-34); Mean Corpuscular Volume 101 fL (80-100); RDW Coefficient of Variation % 11.7 % (11.5-15.5); Red Blood Count* 4.07 m/uL (4.00-5.20); White Blood Count* 6.48 K/uL (4.50-11.00)
[2025-09-20 09:14] LABS: Slide Review Reflex No
[2025-09-20 09:24] LABS: Chloride* 96 mmol/L (96-114); Sodium* 135 mmol/L (135-149)
[2025-09-20 09:25] LABS: Potassium* 4.0 mmol/L (3.6-5.1)
[2025-09-20 09:27] LABS: Anion Gap 14 mEq/L (7-15); Blood Urea Nitrogen* 14 mg/dL (7-30); Carbon Dioxide* 25 mmol/L (20-32); Creatinine* 0.6 mg/dL (0.5-1.5); Est. Creatinine Clearance* 35.66; Estimated Glomerular Filt Rate 87 ml/min
[2025-09-20 09:28] LABS: Calcium* 9.4 mg/dL (8.4-10.6); Glucose* 95 mg/dL (60-115)
--- OUTSIDE RECORDS SUMMARY | 2025-09-20 10:00 | XMS_ITS | Clinical Summary ---
Author Organization [facility] Address [address] [facility] , [address] [place] [address] Phone Care Team Providers Care Job Development Specialist Name Role Phone [facility] Unavailable Unava ilable Conditions or Problems Problem Name Problem Code Onset Date Status Entry Date Provider Comment Standard Description Annotate Stroke [id number] (SNOMED CT) Active Clarence Cottrell MD Cerebrovascular accident Medications Medication Instructions Start Date Stop Date Generic Name NDC Provider ROSUVASTATIN CALCIUM 20 MG TABS TAKE ONE TABLET BY MOUTH ONE TIME DAILY rosuvastatin [id number] Clarence Cottrell MD DILTIAZEM HCL ER COATED BEADS 120 MG [id number] TAKE ONE CAPSULE BY MOUTH ONE TIME DAILY diltiazem hcl [id number] Clarence Cottrell MD CLOPIDOGREL BISULFATE 75 MG TABS TAKE ONE TABLET BY MOUTH ONE TIME DAILY clopidogrel [id number] Clarence Cottrell MD Medications Administered No information [...] Procedures Code Procedure Name Date Entry Date [id number] MRA-Neck W/WO [id number] MRA-Head W/O ORDERS Patient to call for [...]
[2025-09-20 10:08] LABS: Troponin, Point-of-Care* 0.03 ng/ml (0.01-0.04)
[2025-09-20] MEDS: ACETAMINOPHEN 500 MG TABLET 1000 MG PO (10:24)
[2025-09-20] MEDS: 0.9 % SODIUM CHLORIDE 500 ML 500 ML IV (11:38)
--- NOTE | 2025-09-20 14:42 | CRLHL7_ITS ---
For Patients: As a result of the Cures Act, medical imaging exams and procedure reports are released immediately into your electronic medical record. You may view this report before your referring provider. If you have questions, please contact your health care provider. INDICATION: Chest pain. TECHNIQUE: Chest 2 views. COMPARISON: 10/31/2024. FINDINGS: Prominent interstitial markings are noted without overt pulmonary edema. No consolidation. Subtle left apical nodular opacity appear to be present in 2020 and therefore likely benign. No significant pleural effusion. Biapical scarring. No pneumothorax. Heart size and mediastinal contours are stable. IMPRESSION: No acute cardiopulmonary abnormality. Dictated by Jaspreet Nova MD @ 09/20/2025 3:29:38 PM (Electronically Signed)
--- NOTE | 2025-09-20 15:34 | PC.NURSE ---
Nursing Care Hours: [id number] Pt this shift arrived to unit via w/c. Alert and oriented. C/o generalized pain and headache. HTN both before and after BSC use. Pt c/o dizziness during pivot transfer. Large bruise to L forearm with small open skin tear. Generally skin is dry and flaky. Red patches to R biciep, pt reports they are not new. Scaly lesions and decolorization to upper and lower extremities. Void x2.
--- NOTE | 2025-09-20 16:04 | P.IMHP_ITS ---
Assessment and Plan Assessment and plan (1) Persistent postural-perceptual dizziness: Problem comment: Dxed at [facility] 06/2022 (note scanned in, Dr. Warren Velasquez). Previous CT and MRI notable only for fairly severe chronic microvascular ischemia. Status: Acute (2) Frequent falls: Problem comment: Likely due to her orthostatic dizziness. Appears not to have orthostatic hypotension. Status: Acute (3) Fullness in head: Problem comment: started 07/2021, saw Dr. Cottrell, 04/01 and [facility] (Dr. Velasquez) 07/02, multifactorial, probably related to past stroke (had spinal tap at [facility] 06/01 for anti-MASSIEL antibodies of unclear significance, spinal tap unremarkable), Dr. Velasquez felt there was a component of cervical headaches/tension headaches to her head fullness. Status: Acute (4) Frailty syndrome in geriatric patient: Status: Acute (5) Dementia: Problem comment: SLUMS 01/30 (cognitive impairment), dementia diagnosed 05/04 Driving stopped 05/04 Status: Acute (6) Near syncope: Status: Acute (7) Closed head injury: Status: Acute (8) Urinary retention: Status: Acute (9) B12 deficiency: Problem comment: B12 modestly low at 211, 01/30 Status: Acute (10) Chest pain: Problem comment: Patient reports chest tightness occurring almost daily for the past year. Initiate evaluation for acute problems in the hospital and then outpatient follow-up depending on clinical course Status: Acute Plan Admit to the hospital for evaluation of frequent falls, dizziness, chest pain. Total Time Spent Total Time Spent: Total time spent today is 85 minutes in reviewing outside records, coordination of care, discussion with patient family and other providers ongoing management of above problems Hospitalist- H&P: HPI History of Present Illness Date Seen: 09/20/25 Chief complaint: Fall Narrative: Donna Hand is a 85 year old female with history of dementia, frequent falls, dizziness, anxiety, cerebrovascular disease admitted to the hospital after a fall at home. She lives at [facility]. She was up to the bathroom this morning. She felt fine until she stood up from the toilet and fell forward. She does not think she lost consciousness but she is unsure. She fell and hit her face and then rolled over and hit the back of her head. She pushed her alert button and then staff came in called 911. She was complaining of right hip pain head and neck pain. She reports problems with falls. Her family is present and they estimate she has had 5 falls in the last year. She does not recall details of this. It is unclear whether any of these of involve syncope. She does not report significant symptoms of lightheadedness or dizziness preceding the falls. So far no serious injuries. Of chest pain and head fullness that been going on for at least a year. It is not clear that these happen at the same time always but sometimes. The chest pain is been occurring on an almost daily basis she describes as a tightness around her anterior chest. Seems to come and go without obvious trigger such as activity or position. Nothing seems to relieve it. She does feel short of breath when this happens. Head fullness is like a headache at times. She has no other focal neurologic symptoms with it. She reports no recent illness, headache, visual disturbance, sore throat, cough, palpitations, nausea, vomiting, abdominal pain. She denies bowel or bladder problems. CT scan did show some urinary retention but she denies urinary symptoms. She has had no significant lower extremity edema. Very remote history of smoking herself. In the emergency department she had a episode when she was up to the bathroom of near syncope and falling requiring to be caught by staff. When she came to the floor on med surge they attempted to do orthostatic vital signs. Notably her blood pressure went up when she stood up but she became extremely dizzy and was requiring 2 people to hold onto her so she did not fall. In reviewing her records I see that she has seen neurologists at [facility] and in the [facility] for her dizziness over the past 3-4 years without a clear physiologic explanation. She has been diagnosed with orthostatic dizziness. Review of Systems Narrative: Negative scripts as noted above Medical Decision Making Medical Decision Making Has patient completed a Health Care Directive: Yes [facility] Medical History (Updated 09/20/25 @ 16:26 by Miguel Ángel Rutledge MD) Frequent falls ?R29.6 - Repeated falls (ICD-10) Chest pain ?R07.9 - Chest pain, unspecified (ICD-10) Persistent postural-perceptual dizziness ?R42 - Dizziness and giddiness (ICD-10) Fullness in head ?R68.89 - Other general symptoms and signs (ICD-10) Frailty syndrome in geriatric patient ?R54 - Age-related physical debility (ICD-10) Dementia ?F03.90 - Unspecified dementia, unspecified severity, without behavioral disturbance, psychotic disturbance, mood disturbance, and anxiety (ICD-10) Near syncope ?R55 - Syncope and collapse (ICD-10) Urinary retention ?R33.9 - Retention of urine, unspecified (ICD-10) Surgical History 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) ?Z96.642 - Presence of left artificial hip joint (ICD-10) History of total right hip replacement (02/20/12) ?Z96.641 - Presence of right artificial hip joint (ICD-10) History of phacoemulsification of cataract of both eyes with intraocular lens implantation ?Z98.41 - Cataract extraction status, right eye (ICD-10) ?Z98.42 - Cataract extraction status, left eye (ICD-10) ?Z96.1 - Presence of intraocular lens (ICD-10) History of YAG laser capsulotomy of lens of left eye ?Z98.42 - Cataract extraction status, left eye (ICD-10) History of tenotomy (01/26/19) ?Z98.890 - Other specified postprocedural states (ICD-10) History of melanoma excision ?Z98.890 - Other specified postprocedural states (ICD-10) ?Z85.820 - Personal history of malignant melanoma of skin (ICD-10) History of tonsillectomy ?Z90.89 - Acquired absence of other organs (ICD-10) History of squamous cell carcinoma excision (2002) ?Z98.890 - Other specified postprocedural states (ICD-10) ?Z85.9 - Personal history of malignant neoplasm, unspecified (ICD-10) History of repair of rotator cuff (1984) ?Z98.890 - Other specified postprocedural states (ICD-10) History of mitral valve replacement (2016) ?Z95.2 - Presence of prosthetic heart valve (ICD-10) History of hysterectomy ?Z90.710 - Acquired absence of both cervix and uterus (ICD-10) Social History (Updated 09/20/25 @ 16:11 by Miguel Ángel Rutledge MD) Narrative: Lives at [facility]. Accompanied today by son and [id number]. Remote history of smoking. Drinks 1 glass of wine a day. What is your current living situation?: I presently have a place to live Problems where you live: no known problems Problems where you live details: NA In the past 12 months, utilities in danger of being shut off: no In past 12 months, lack of transportation kept you from medical appts, meetings, work, or getting things needed for daily living: no In the past 12 mos, have been you worried that your food would run out before you had money to buy more?: never true In the past 12 mos, the food you bought just didn't last and you didn't have money to buy more?: never true Highest level of school completed/degree received: Bachelor's degree Smoking Status: Former smoker Second hand tobacco smoke exposure: No How often do you have a drink containing alcohol: 4 or more times a week Alcohol type: wine How many standard drinks containing alcohol do you have on a typical day: 1 or 2 How often do you have six or more drinks on one occasion: Never AUDIT-C Alcohol total score: 4 Non-prescribed substance use: denies use Caffeine: Yes (coffee) How often does anyone, including family, friends and others, physically hurt you : never How often does anyone, including family, friends and others, insult or talk down to you: never How often does anyone, including family, friends and others, threaten you with harm: never How often does anyone, including family, friends and others, scream or curse at you: never service: No Meds Home Medications and Allergies Home Medications ?Medication ?Instructions ?Recorded ?Confirmed ?Type cholecalciferol (vitamin D3) 25 1,000 unit PO HS 07/2409/20/25 History mcg (1,000 unit) tablet cyanocobalamin (vitamin B-12) 1,000 mcg PO DAILY 07/2409/20/25 History 1,000 mcg tablet sennosides 8.6 mg tablet 34.4 mg PO HS 07/24/2209/20 History omega 1-egi-moa-fish oil 100 1 cap PO QDAY 02/26/23 History mg-160 mg-1,000 mg capsule (Fish Oil) diltiazem HCl 120 mg 120 mg PO DAILY #90 caps 09/20/25 Rx capsule,extended release 24 hr fluoxetine 20 mg capsule 20 mg PO QAM #90 caps 09/20/25 Rx acetaminophen 500 mg tablet 1,000 mg PO TID 09/20/25 1 11/20/24 History clopidogrel 75 mg tablet 75 mg PO HS 09/20/25 5 History docusate sodium 100 mg capsule 100 mg PO HS 09/20/25 1 11/20/24 History (Colace) ibuprofen 200 mg tablet (Advil) 400 mg PO BID 09/20/25 09/20/25 History rosuvastatin 40 mg tablet 40 mg PO HS 09/20/25 5 History Allergies Allergy/AdvReac Type Severity Reaction Status Date / Time No Known Drug Allergies Allergy Verified 06/11/25 11:47 Exam Narrative: Exam Narrative: She is alert and appears in no distress. She gives her own history but forgetful of multiple details. Eyes normal. Oropharynx normal. Dry mucous membranes. Neck is supple without mass or adenopathy. No jugular venous distension. Respirations are clear to auscultation. No wheezing rales or rhonchi. Cardiovascular: S1, S2, regular rate and rhythm. Abdomen: Bowel sounds active. Abdomen is soft without tenderness or mass. External genitalia normal. Extremities without significant edema. She has diminished pedal pulses. She moves all 4 extremities well. No facial asymmetry. Const: Vital Signs, click to edit/add: Vital Signs - 24 hr 09/20/25 09:02 09/20/25 09:10 09/20/25 09:26 Temperature 97.6 F Pulse Rate 87 Pulse Rate [Pulse Oximeter] 85 Pulse Rate [Right Radial] Pulse Rate [orthos tatic lying Pulse Oximeter] Pulse Rate [orthos tatic sitting Puls e Oximeter] Pulse Rate [orthos tatic standing Pul se Oximeter] Respiratory Rate 16 25 H Blood Pressure 121/93 H Blood Pressure [Ri ght Arm] Blood Pressure [Ri ght Upper Arm] 121/93 H Blood Pressure [or thostatic lying Ri ght Arm] Blood Pressure [or thostatic sitting Right Arm] Blood Pressure [or thostatic standing Right Arm] Pulse Oximetry 99 98 99 Oxygen Delivery Me thod Room Air 09/20/25 09:27 09/20/25 09:30 09/20/25 09:36 Temperature Pulse Rate 83 87 89 Pulse Rate [Pulse Oximeter] Pulse Rate [Right Radial] Pulse Rate [orthos tatic lying Pulse Oximeter] Pulse Rate [orthos tatic sitting Puls e Oximeter] Pulse Rate [orthos tatic standing Pul se Oximeter] Respiratory Rate 35 H 39 H 25 H Blood Pressure 209/98 H Blood Pressure [Ri ght Arm] Blood Pressure [Ri ght Upper Arm] Blood Pressure [or thostatic lying Ri ght Arm] Blood Pressure [or thostatic sitting Right Arm] Blood Pressure [or thostatic standing Right Arm] Pulse Oximetry 100 96 100 Oxygen Delivery Me thod 09/20/25 09:36 09/20/25 09:45 09/20/25 09:47 Temperature Pulse Rate 89 90 86 Pulse Rate [Pulse Oximeter] Pulse Rate [Right Radial] Pulse Rate [orthos tatic lying Pulse Oximeter] Pulse Rate [orthos tatic sitting Puls e Oximeter] Pulse Rate [orthos tatic standing Pul se Oximeter] Respiratory Rate 25 H 35 H 27 H Blood Pressure 209/98 H 197/103 H Blood Pressure [Ri ght Arm] Blood Pressure [Ri ght Upper Arm] Blood Pressure [or thostatic lying Ri ght Arm] Blood Pressure [or thostatic sitting Right Arm] Blood Pressure [or thostatic standing Right Arm] Pulse Oximetry 100 98 99 Oxygen Delivery Me thod 09/20/25 10:11 09/20/25 10:15 09/20/25 10:19 Temperature Pulse Rate 85 80 Pulse Rate [Pulse Oximeter] Pulse Rate [Right Radial] Pulse Rate [orthos tatic lying Pulse Oximeter] Pulse Rate [orthos tatic sitting Puls e Oximeter] Pulse Rate [orthos tatic standing Pul se Oximeter] Respiratory Rate 37 H 23 23 Blood Pressure 203/94 H Blood Pressure [Ri ght Arm] Blood Pressure [Ri ght Upper Arm] Blood Pressure [or thostatic lying Ri ght Arm] Blood Pressure [or thostatic sitting Right Arm] Blood Pressure [or thostatic standing Right Arm] Pulse Oximetry 99 98 Oxygen Delivery Me thod 09/20/25 10:20 09/20/25 10:30 09/20/25 10:32 Temperature Pulse Rate 79 88 86 Pulse Rate [Pulse Oximeter] Pulse Rate [Right Radial] Pulse Rate [orthos tatic lying Pulse Oximeter] Pulse Rate [orthos tatic sitting Puls e Oximeter] Pulse Rate [orthos tatic standing Pul se Oximeter] Respiratory Rate 22 20 15 Blood Pressure 180/94 H Blood Pressure [Ri ght Arm] Blood Pressure [Ri ght Upper Arm] Blood Pressure [or thostatic lying Ri ght Arm] Blood Pressure [or thostatic sitting Right Arm] Blood Pressure [or thostatic standing Right Arm] Pulse Oximetry 98 100 97 Oxygen Delivery Me thod 09/20/25 10:33 09/20/25 10:45 09/20/25 10:47 Temperature Pulse Rate 86 89 90 Pulse Rate [Pulse Oximeter] Pulse Rate [Right Radial] Pulse Rate [orthos tatic lying Pulse Oximeter] Pulse Rate [orthos tatic sitting Puls e Oximeter] Pulse Rate [orthos tatic standing Pul se Oximeter] Respiratory Rate 13 13 16 Blood Pressure 200/98 H Blood Pressure [Ri ght Arm] Blood Pressure [Ri ght Upper Arm] Blood Pressure [or thostatic lying Ri ght Arm] Blood Pressure [or thostatic sitting Right Arm] Blood Pressure [or thostatic standing Right Arm] Pulse Oximetry 100 98 97 Oxygen Delivery Me thod 09/20/25 11:00 09/20/25 11:02 09/20/25 11:15 Temperature Pulse Rate 87 86 90 Pulse Rate [Pulse Oximeter] Pulse Rate [Right Radial] Pulse Rate [orthos tatic lying Pulse Oximeter] Pulse Rate [orthos tatic sitting Puls e Oximeter] Pulse Rate [orthos tatic standing Pul se Oximeter] Respiratory Rate 20 16 17 Blood Pressure 167/81 H Blood Pressure [Ri ght Arm] Blood Pressure [Ri ght Upper Arm] Blood Pressure [or thostatic lying Ri ght Arm] Blood Pressure [or thostatic sitting Right Arm] Blood Pressure [or thostatic standing Right Arm] Pulse Oximetry 98 98 97 Oxygen Delivery Me thod 09/20/25 11:17 09/20/25 11:17 09/20/25 11:33 Temperature Pulse Rate 89 89 89 Pulse Rate [Pulse Oximeter] Pulse Rate [Right Radial] Pulse Rate [orthos tatic lying Pulse Oximeter] Pulse Rate [orthos tatic sitting Puls e Oximeter] Pulse Rate [orthos tatic standing Pul se Oximeter] Respiratory Rate 20 20 13 Blood Pressure 143/81 H 143/81 H 119/71 Blood Pressure [Ri ght Arm] Blood Pressure [Ri ght Upper Arm] Blood Pressure [or thostatic lying Ri ght Arm] Blood Pressure [or thostatic sitting Right Arm] Blood Pressure [or thostatic standing Right Arm] Pulse Oximetry 98 98 97 Oxygen Delivery Me thod 09/20/25 11:39 09/20/25 11:45 09/20/25 11:47 Temperature Pulse Rate 82 83 83 Pulse Rate [Pulse Oximeter] Pulse Rate [Right Radial] Pulse Rate [orthos tatic lying Pulse Oximeter] Pulse Rate [orthos tatic sitting Puls e Oximeter] Pulse Rate [orthos tatic standing Pul se Oximeter] Respiratory Rate 16 20 25 H Blood Pressure Blood Pressure [Ri ght Arm] Blood Pressure [Ri ght Upper Arm] Blood Pressure [or thostatic lying Ri ght Arm] Blood Pressure [or thostatic sitting Right Arm] Blood Pressure [or thostatic standing Right Arm] Pulse Oximetry 98 99 98 Oxygen Delivery Me thod 09/20/25 12:00 09/20/25 12:02 09/20/25 12:07 Temperature Pulse Rate 79 80 88 Pulse Rate [Pulse Oximeter] Pulse Rate [Right Radial] Pulse Rate [orthos tatic lying Pulse Oximeter] Pulse Rate [orthos tatic sitting Puls e Oximeter] Pulse Rate [orthos tatic standing Pul se Oximeter] Respiratory Rate 17 17 22 Blood Pressure 156/74 H 147/118 H Blood Pressure [Ri ght Arm] Blood Pressure [Ri ght Upper Arm] Blood Pressure [or thostatic lying Ri ght Arm] Blood Pressure [or thostatic sitting Right Arm] Blood Pressure [or thostatic standing Right Arm] Pulse Oximetry 92 97 99 Oxygen Delivery Me thod 09/20/25 12:11 09/20/25 12:14 09/20/25 12:15 Temperature Pulse Rate 78 Pulse Rate [Pulse Oximeter] Pulse Rate [Right Radial] Pulse Rate [orthos tatic lying Pulse Oximeter] 79 Pulse Rate [orthos tatic sitting Puls e Oximeter] 86 Pulse Rate [orthos tatic standing Pul se Oximeter] 95 Respiratory Rate 25 H 19 Blood Pressure 132/96 H Blood Pressure [Ri ght Arm] Blood Pressure [Ri ght Upper Arm] Blood Pressure [or thostatic lying Ri ght Arm] 156/74 H Blood Pressure [or thostatic sitting Right Arm] 147/118 H Blood Pressure [or thostatic standing Right Arm] 132/92 H Pulse Oximetry 99 Oxygen Delivery Me thod 09/20/25 12:17 09/20/25 12:30 09/20/25 12:32 Temperature Pulse Rate 79 76 79 Pulse Rate [Pulse Oximeter] Pulse Rate [Right Radial] Pulse Rate [orthos tatic lying Pulse Oximeter] Pulse Rate [orthos tatic sitting Puls e Oximeter] Pulse Rate [orthos tatic standing Pul se Oximeter] Respiratory Rate 19 15 21 Blood Pressure 183/81 H 149/72 H Blood Pressure [Ri ght Arm] Blood Pressure [Ri ght Upper Arm] Blood Pressure [or thostatic lying Ri ght Arm] Blood Pressure [or thostatic sitting Right Arm] Blood Pressure [or thostatic standing Right Arm] Pulse Oximetry 98 94 98 Oxygen Delivery Me thod 09/20/25 12:45 09/20/25 12:47 09/20/25 12:52 Temperature Pulse Rate 83 82 83 Pulse Rate [Pulse Oximeter] Pulse Rate [Right Radial] Pulse Rate [orthos tatic lying Pulse Oximeter] Pulse Rate [orthos tatic sitting Puls e Oximeter] Pulse Rate [orthos tatic standing Pul se Oximeter] Respiratory Rate 14 23 18 Blood Pressure 150/72 H 144/77 H Blood Pressure [Ri ght Arm] Blood Pressure [Ri ght Upper Arm] Blood Pressure [or thostatic lying Ri ght Arm] Blood Pressure [or thostatic sitting Right Arm] Blood Pressure [or thostatic standing Right Arm] Pulse Oximetry 98 97 99 Oxygen Delivery Me thod 09/20/25 13:00 09/20/25 13:02 09/20/25 13:15 Temperature Pulse Rate 82 82 82 Pulse Rate [Pulse Oximeter] Pulse Rate [Right Radial] Pulse Rate [orthos tatic lying Pulse Oximeter] Pulse Rate [orthos tatic sitting Puls e Oximeter] Pulse Rate [orthos tatic standing Pul se Oximeter] Respiratory Rate 29 H 21 17 Blood Pressure 165/86 H Blood Pressure [Ri ght Arm] Blood Pressure [Ri ght Upper Arm] Blood Pressure [or thostatic lying Ri ght Arm] Blood Pressure [or thostatic sitting Right Arm] Blood Pressure [or thostatic standing Right Arm] Pulse Oximetry 98 100 99 Oxygen Delivery Me thod 09/20/25 13:17 09/20/25 13:30 09/20/25 13:32 Temperature Pulse Rate 81 81 Pulse Rate [Pulse Oximeter] Pulse Rate [Right Radial] Pulse Rate [orthos tatic lying Pulse Oximeter] Pulse Rate [orthos tatic sitting Puls e Oximeter] Pulse Rate [orthos tatic standing Pul se Oximeter] Respiratory Rate 22 12 20 Blood Pressure 160/78 H 168/89 H Blood Pressure [Ri ght Arm] Blood Pressure [Ri ght Upper Arm] Blood Pressure [or thostatic lying Ri ght Arm] Blood Pressure [or thostatic sitting Right Arm] Blood Pressure [or thostatic standing Right Arm] Pulse Oximetry 99 99 Oxygen Delivery Me thod 09/20/25 13:45 09/20/25 13:47 09/20/25 15:00 Temperature Pulse Rate Pulse Rate [Pulse Oximeter] Pulse Rate [Right Radial] 83 Pulse Rate [orthos tatic lying Pulse Oximeter] Pulse Rate [orthos tatic sitting Puls e Oximeter] Pulse Rate [orthos tatic standing Pul se Oximeter] Respiratory Rate 18 20 20 Blood Pressure 162/85 H Blood Pressure [Ri ght Arm] 189/89 H Blood Pressure [Ri ght Upper Arm] Blood Pressure [or thostatic lying Ri ght Arm] Blood Pressure [or thostatic sitting Right Arm] Blood Pressure [or thostatic standing Right Arm] Pulse Oximetry 97 Oxygen Delivery Me thod 09/20/25 15:14 09/20/25 15:33 Temperature Pulse Rate Pulse Rate [Pulse Oximeter] Pulse Rate [Right Radial] Pulse Rate [orthos tatic lying Pulse Oximeter] 82 Pulse Rate [orthos tatic sitting Puls e Oximeter] 90 Pulse Rate [orthos tatic standing Pul se Oximeter] 96 Respiratory Rate Blood Pressure Blood Pressure [Ri ght Arm] Blood Pressure [Ri ght Upper Arm] Blood Pressure [or thostatic lying Ri ght Arm] 177/91 H Blood Pressure [or thostatic sitting Right Arm] 192/99 H Blood Pressure [or thostatic standing Right Arm] 185/111 H Pulse Oximetry Oxygen Delivery Me thod Room Air Hospitalist - H&P: Result Labs Labs: Short CBC 09/20/25 Range/Units 09:00 WBC 6.48 (4.50-11.00) K/uL Hgb 13.5 (12.0-16.0) gm/dL Hct 41.1 (33.0-51.0) % Plt Count 243 (140-440) K/uL [facility] 09/20/25 09:00 Sodium 135 Potassium 4.0 Chloride 96 Carbon Dioxide 25 BUN 14 Creatinine 0.6 Glucose 95 Calcium 9.4 Cardiac Enzymes 09/20/25 Range/Units 09:00 Troponin I < 0.01 (0.01-0.04) ng/mL ECG Attestation: I personally reviewed and interpreted this ECG as follows: (Sinus rhythm with first-degree AV block. Frequent PVCs. Incomplete right bundle branch block. Prolonged QT at 418/497) ECG interpretation date: 09/20/25 Imaging Chest x-ray: Radiologist's impression: INDICATION: Chest pain. TECHNIQUE: Chest 2 views. COMPARISON: 10/31/2024. FINDINGS: Prominent interstitial markings are noted without overt pulmonary edema. No consolidation. Subtle left apical nodular opacity appear to be present in 2020 and therefore likely benign. No significant pleural effusion. Biapical scarring. No pneumothorax. Heart size and mediastinal contours are stable. IMPRESSION: No acute cardiopulmonary abnormality. CT scan - head: Radiologist's impression: INDICATION: Fall, trauma. COMPARISON: 12/03/2023 TECHNIQUE: CT of the brain / head without intravenous contrast. Multiplanar axial, coronal, and sagittal reformats were reconstructed. FINDINGS: No intracranial hemorrhage. Age-related parenchymal volume loss. No acute or subacute cortically based infarct. Near confluence periventricular white matter hypodensities may be related to chronic microvascular ischemia. Heavy atherosclerosis. No mass or mass effect. Normal ventricles. No skull fractures. No worrisome focal bone lesion. Small left parietal scalp hematoma/contusion. IMPRESSION: Small left parietal scalp hematoma/contusion. No intracranial hemorrhage. No skull fracture. CT scan - pelvis: Radiologist's impression: INDICATION: Fall with trauma. Posterior trochanteric pain TECHNIQUE: CT pelvis without contrast. COMPARISON: None FINDINGS: Bones: Alignment is normal. No sign of acute fracture. No suspicious bony lesions. 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 Distal tips not included in the field of view. No proximal femoral fractures. Moderate L5-S1 disc space narrowing with small disc protrusion. Advanced facet arthrosis L4-5 and L5-S1. Mild degenerative changes at the SI joints. Moderate osteitis pubis. Intrapelvic contents: Moderate bladder distention. No pelvic mass or adenopathy. No retroperitoneal hemorrhage or free fluid. Soft tissues: No soft tissue hematomas. IMPRESSION: 1. No pelvic fractures or deformities. 2. Bilateral ISAIAS are well-seated and aligned without complications. 3. Moderate distention of the bladder. No acute intrapelvic soft tissue abnormalities. 4. Additional chronic findings as above. No acute or significant findings.
[2025-09-20] MEDS: ACETAMINOPHEN 325 MG TABLET 650 MG PO ×2 (16:24→20:59)
[2025-09-20 17:43] LABS: Appearance Urine Clear (Clear)
--- NOTE | 2025-09-20 18:19 | PC.NURSE ---
End of shift [id number]: Pt AxOx3, pleasant, and cooperative with cares. Pain managed well with PRN Tylenol and rest. Orthos completed, Pt experienced dizziness and lightheadedness. MD Rutledge notified. IV to the R wrist SL, patent. Pt reports chest pain that feels band-like, MD Rutledge made aware. No further intervention at this time. Pt on TELE. 1 degree block, prolonged QT, MD Rutledge made aware. Pt reported improvement with ambulation to the bathroom during shift, denying dizziness. A1 GB W. Continent of the bladder. Tolerating regular diet and fluids well. Call light within reach. Bed alarm in place.
[2025-09-20] MEDS: CLOPIDOGREL 75 MG TABLET PO (20:58)
[2025-09-20] MEDS: SENNOSIDES 1 TAB TABLET 4 TAB PO (20:59)
[2025-09-20] MEDS: DOCUSATE SODIUM 100 MG CAPSULE PO (21:00)
[2025-09-20] MEDS: ROSUVASTATIN CALCIUM 10 MG TABLET 40 MG PO (21:01)
[2025-09-20] MEDS: SODIUM CHLORIDE 0.9 % (FLUSH) 10 ML SYRINGE 5 ML IVF (21:02)
[2025-09-21 02:53] VITALS: BP 135/71; PULSE 81; RESP 20; TEMP 36.9; O2SAT 97
[2025-09-21 03:00] VITALS: PULSE 79
[2025-09-21] MEDS: OMEPRAZOLE 20 MG CAPSULE DR 40 MG PO (06:16)
[2025-09-21 06:35] LABS: Hematocrit* 34.2 % (33.0-51.0); Hemoglobin* 11.3 gm/dL (12.0-16.0); Immature Granulocytes Abs Auto 0.01 K/uL (0.00-0.30); Immature Granulocytes Pct Auto 0.2 %; Lymphocytes Absolute Auto 1.51 K/uL (0.90-2.90); Mean Corpuscular HGB Conc 33 gm/dL (32-36); Mean Corpuscular Hemoglobin 34 pg (26-34); Mean Corpuscular Volume 102 fL (80-100); RDW Coefficient of Variation % 11.8 % (11.5-15.5); Red Blood Count* 3.36 m/uL (4.00-5.20); White Blood Count* 5.84 K/uL (4.50-11.00)
[2025-09-21 06:41] LABS: Slide Review Reflex No
--- NOTE | 2025-09-21 06:42 | PC.NURSE ---
Shift note ([id number]): Patient pleasant, alert and cooperative with cares. Ambulated to bathroom with walker, gait belt and assist of one. Given PRN Tylenol for back pain and headache. Denied pain at end of shift. Slept well.?
[2025-09-21 06:50] LABS: Chloride* 99 mmol/L (96-114)
[2025-09-21 06:51] LABS: Potassium* 3.1 mmol/L (3.6-5.1); Sodium* 134 mmol/L (135-149)
[2025-09-21 06:54] LABS: Anion Gap 11 mEq/L (7-15); Blood Urea Nitrogen* 21 mg/dL (7-30); Calcium* 8.7 mg/dL (8.4-10.6); Carbon Dioxide* 24 mmol/L (20-32); Creatinine* 0.6 mg/dL (0.5-1.5); Est. Creatinine Clearance* 35.66; Estimated Glomerular Filt Rate 87 ml/min; Glucose* 105 mg/dL (60-115)
[2025-09-21 07:49] VITALS: BP 127/72; PULSE 98; RESP 14; TEMP 36.8; O2SAT 96
[2025-09-21 08:00] VITALS: PULSE 89
[2025-09-21] MEDS: POTASSIUM BICARB 25 MEQ EFFERVESCENT TAB 50 MEQ PO (08:08)
[2025-09-21] MEDS: ACETAMINOPHEN 325 MG TABLET 650 MG PO ×2 (08:11→14:20)
[2025-09-21] MEDS: FLUOXETINE HCL 20 MG CAPSULE PO (09:25)
[2025-09-21] MEDS: SODIUM CHLORIDE 0.9 % (FLUSH) 10 ML SYRINGE 5 ML IVF (09:26)
[2025-09-21 11:00] VITALS: BP 153/90; BP 155/79; BP 165/85; PULSE 72; PULSE 85; PULSE 88; RESP 18; O2SAT 97
--- NOTE | 2025-09-21 13:16 | PC.NURSE ---
Shift Summary: patient pleasant and cooperative. Vitals stable and WNL. Patient ambulates with one assist, walker and gait belt. C/o pain in left shoulder/lower back, managed with rest and PRN medication, patient stated relief. Family in room.
[2025-09-21 15:00] VITALS: BP 158/87; PULSE 77; RESP 18; TEMP 36.8; O2SAT 97
--- NOTE | 2025-09-21 15:30 | PC.SOCIAL ---
Discharge planning: Met with pt and dtr to discuss discharge plan. Pt lives independently at [facility] and has refused in the past to increase services. Pt states she now agrees with need for more assistance and is willing for her family to provide that assistance or accept any assistance they want to hire. Shared with pt and family information on increasing services at [facility] or moving into the short ter [facility] unit there temporarily while additional assistance is needed. Pt and family are open to whatever [facility] thinks would be the best location for receiving the care pt needs at discharge. Pt is not interested in moving into a half-way and wants to remain on the [facility] campus. Called Fany in admissions at [facility] who states they have an available room at the Enhanced Unit and she has already discussed this with pt's son Mando. Secure emailed information from pt's chart to facilitate admission to [facility] unit from hospital at discharge today. Confirmed with Fany that pt can arrive today at discharge to [facility] and that family plans ot provide transportation. Met with son Mando who is here at the hospital and is aware and agrees with this plan. Son states that if pt is not able to go straight to the [facility] at discharge today, she can return to her [facility] apartment for one night and family will stay with her and then she can move into the [facility] tomorrow from her apartment. 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
--- NOTE | 2025-09-21 15:54 | P.DS_ITS ---
DS: Providers Provider Date Seen: 09/21/25 Date of admission: 09/20/25 14:17 Primary care physician: Teagan Garcia MD Admitting Clinician: Miguel Ángel Rutledge MD Attending Physician on discharge: Miguel Ángel Rutledge MD Date of Discharge: 09/21/25 DS: Diagnosis Discharge Diagnosis (1) Frequent falls: Status: Acute Problem details: Likely due to her orthostatic dizziness. Appears not to have orthostatic hypotension. Continues to be high risk for falls. This appears to be due to degenerative brain disease, probably vascular dementia/advanced small-vessel ischemic changes on brain imaging (2) Cerebrovascular disease: Status: Acute Problem details: silent stroke/small vessel ischemic disease seen on MRI brain 02/27, (due to right eye loss symptoms) atorvastatin intensified to crestor and aspirin changed to Plavix both 02/27, MRI brain 01/30 revealed multiple small chronic infarcts within the bilateral cerebellar hemispheres, several new since 2018, saw Dr. Cottrell, neurology, 04/01, who felt the brain fog/dizziness was explained by the cerebrovascular disease, rosuvastatin increased 05/02, saw [facility] 07/02 (note scanned in, Dr. Warren Velasquez) (3) Chest pain: Status: Acute Problem details: Patient reports chest tightness occurring almost daily for the past year. Initiate evaluation for acute problems in the hospital and then outpatient follow-up depending on clinical course. Had relatively mild costal margin and upper abdominal area discomfort which did not correspond to any particular activity or positioning. Negative troponins. Relatively normal vitals and cardiac monitoring. Is well treated for chronic coronary artery disease. Further evaluation indicated if severe or worsening ischemic symptoms. (4) Urinary retention: Status: Acute Problem details: Intermittently mildly elevated postvoid residual. Most recently 30 mL postvoid residual today on the day of discharge (5) Dementia: Status: Acute Problem details: SLUMS 01/30 (cognitive impairment), dementia diagnosed 05/04 Driving stopped 05/04. Unable to complete [place] today (6) Frailty syndrome in geriatric patient: Status: Acute (7) Fullness in head: Status: Acute Problem details: started 07/2021, saw Dr. Cottrell, 04/01 and [facility] (Dr. Velasquez) 07/02, multifactorial, probably related to past stroke (had spinal tap at [facility] 06/01 for anti-MASSIEL antibodies of unclear significance, spinal tap unremarkable), Dr. Velasquez felt there was a component of cervical headaches/tension headaches to her head fullness. (8) Persistent postural-perceptual dizziness: Status: Acute Problem details: Dxed at [facility] summer (note scanned in, Dr. Warren Velasquez). Previous CT and MRI notable only for fairly severe chronic microvascular ischemia. (9) Situational anxiety: Status: Acute Problem details: fluoxetine started 01/01 the patient stopped it, restarted 07/02 at patient's request, fluoxetine increased 12/04. Family notes ongoing anxiety. DS: Summary Hospital Course Hospital Course: Donna Hand is a 85 year old female with history of dementia, frequent falls, dizziness, anxiety, cerebrovascular disease admitted to the hospital after a fall at home. She lives at [facility]. She was up to the bathroom this morning. She felt fine until she stood up from the toilet and fell forward. She does not think she lost consciousness but she is unsure. She fell and hit her face and then rolled over and hit the back of her head. She pushed her alert button and then staff came in called 911. She was complaining of right hip pain head and neck pain. She reports problems with falls. Her family is present and they estimate she has had 5 falls in the last year. She does not recall details of this. It is unclear whether any of these of involve syncope. She does not report significant symptoms of lightheadedness or dizziness preceding the falls. So far no serious injuries. Of chest pain and head fullness that been going on for at least a year. It is not clear that these happen at the same time always but sometimes. The chest pain is been occurring on an almost daily basis she describes as a tightness around her anterior chest. Seems to come and go without obvious trigger such as activity or position. Nothing seems to relieve it. She does feel short of breath when this happens. Head fullness is like a headache at times. She has no other focal neurologic symptoms with it. She reports no recent illness, headache, visual disturbance, sore throat, cough, palpitations, nausea, vomiting, abdominal pain. She denies bowel or bladder problems. CT scan did show some urinary retention but she denies urinary symptoms. She has had no significant lower extremity edema. Very remote history of smoking herself. In the emergency department she had a episode when she was up to the bathroom of near syncope and falling requiring to be caught by staff. When she came to the floor on med surge they attempted to do orthostatic vital signs. Notably her blood pressure went up when she stood up but she became extremely dizzy and was requiring 2 people to hold onto her so she did not fall. In reviewing her records I see that she has seen neurologists at [facility] and in the [facility] for her dizziness over the past 3-4 years without a clear physiologic explanation. She has been diagnosed with orthostatic dizziness. During her hospital stay she had improvement in her ability to stand and walk. She continued to have some pain in her back with ambulation. Her ibuprofen was reduced due to concerns about heart and kidney disease and upper abdominal symptoms. She was felt to be a poor candidate for opioid therapy due to sedating affects and increasing risk of falls. On the day of discharge she was able to walk with a walker and standby assistance. Status at Discharge Functional status at discharge: uses cane/walker Overall status at discharge: patient is progressing back to baseline Time Spent with Patient Time attestation: Total time spent providing and/or coordinating discharge services: 50 minutes Exam Narrative: Exam Narrative: He is alert and in no distress. Somewhat confused and forgetful of recent events. Pleasant and cooperative. Observed to move fairly well from sitting to standing and walking. Breathing is unlabored. No chest tenderness. Const: Vital Signs, click to edit/add: Vital Signs - 24 hr 09/20/25 16:48 09/20/25 20:30 09/20/25 23:47 Temperature 98.5 F 98.8 F Pulse Rate 84 Pulse Rate [Right Radial] 83 82 Pulse Rate [orthos tatic lying Pulse Oximeter] Pulse Rate [orthos tatic sitting Puls e Oximeter] Pulse Rate [orthos tatic standing Pul se Oximeter] Respiratory Rate 20 18 Blood Pressure [Ri ght Arm] 149/79 H 139/77 Blood Pressure [or thostatic lying Ri ght Arm] Blood Pressure [or thostatic sitting Right Arm] Blood Pressure [or thostatic standing Right Arm] Pulse Oximetry 96 94 Oxygen Delivery Me thod Room Air Room Air 09/21/25 02:53 09/21/25 03:00 09/21/25 07:49 Temperature 98.4 F 98.2 F Pulse Rate 79 Pulse Rate [Right Radial] 81 98 Pulse Rate [orthos tatic lying Pulse Oximeter] Pulse Rate [orthos tatic sitting Puls e Oximeter] Pulse Rate [orthos tatic standing Pul se Oximeter] Respiratory Rate 20 14 Blood Pressure [Ri ght Arm] 135/71 127/72 Blood Pressure [or thostatic lying Ri ght Arm] Blood Pressure [or thostatic sitting Right Arm] Blood Pressure [or thostatic standing Right Arm] Pulse Oximetry 97 96 Oxygen Delivery Me thod Room Air Room Air 09/21/25 08:00 09/21/25 11:00 09/21/25 11:00 Temperature Pulse Rate 89 Pulse Rate [Right Radial] 72 Pulse Rate [orthos tatic lying Pulse Oximeter] 72 Pulse Rate [orthos tatic sitting Puls e Oximeter] 85 Pulse Rate [orthos tatic standing Pul se Oximeter] 88 Respiratory Rate 18 Blood Pressure [Ri ght Arm] 155/79 H Blood Pressure [or thostatic lying Ri ght Arm] 155/79 H Blood Pressure [or thostatic sitting Right Arm] 165/85 H Blood Pressure [or thostatic standing Right Arm] 153/90 H Pulse Oximetry 97 Oxygen Delivery Me thod Room Air Documenting provider has reviewed patient's vital signs: yes DS: Data Data Completed and Pending Labs on day of discharge: Labs from last 24 hours 09/21/25 09/20/25 05:45 17:39 WBC 5.84 RBC 3.36 L Hgb 11.3 L Hct 34.2 MCV 102 H MCH 34 MCHC 33 RDW Coeff of Katia 11.8 Plt Count 236 Neut % (Auto) 63.5 Lymph % (Auto) 25.9 [place] % (Auto) 8.4 Eos % (Auto) 1.0 Baso % (Auto) 1.0 Neut # (Auto) 3.71 Lymph # (Auto) 1.51 [place] # (Auto) 0.50 Eos # (Auto) 0.06 Baso # (Auto) 0.06 Abs Immat Gran (auto) 0.01 Imm/Tot Granulo (auto) 0.2 Sodium 134 L Potassium 3.1 L Chloride 99 Carbon Dioxide 24 Anion Gap 11 BUN 21 Creatinine 0.6 Estimated Creat Clear 35.66 Estimated GFR 87 Glucose 105 Calcium 8.7 Magnesium 2.0 Troponin I 0.02 Urine Color Yellow Urine Appearance Clear Urine pH 8.5 Ur Specific [place] 1.015 Urine Protein Negative Urine Glucose (UA) Negative Urine Ketones Trace A Urine Blood Negative Urine Nitrite Negative Urine Bilirubin Negative Urine Urobilinogen 0.2 Ur Leukocyte Esterase Trace A Urine RBC 0-2 Urine WBC 2-5 Ur Squamous Epith Cells Few Urine Bacteria Few A Preliminary micro results at discharge 09/20/25 17:39 Urine Culture - Preliminary Urine,Clean Catch < 50,000 COL/ML MIXED GRAM POSITIVE ONOFRE ISOLATED NO FURTHER WORKUP Imaging Chest x-ray: Radiologist's impression: INDICATION: Chest pain. TECHNIQUE: Chest 2 views. COMPARISON: 10/31/2024. FINDINGS: Prominent interstitial markings are noted without overt pulmonary edema. No consolidation. Subtle left apical nodular opacity appear to be present in 2020 and therefore likely benign. No significant pleural effusion. Biapical scarring. No pneumothorax. Heart size and mediastinal contours are stable. IMPRESSION: No acute cardiopulmonary abnormality. Dictated by Jaspreet Nova MD @ 09/20/2025 CT scan - pelvis: Radiologist's impression: INDICATION: Fall with trauma. Posterior trochanteric pain TECHNIQUE: CT pelvis without contrast. COMPARISON: None FINDINGS: Bones: Alignment is normal. No sign of acute fracture. No suspicious bony lesions. 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 Distal tips not included in the field of view. No proximal femoral fractures. Moderate L5-S1 disc space narrowing with small disc protrusion. Advanced facet arthrosis L4-5 and L5-S1. Mild degenerative changes at the SI joints. Moderate osteitis pubis. Intrapelvic contents: Moderate bladder distention. No pelvic mass or adenopathy. No retroperitoneal hemorrhage or free fluid. Soft tissues: No soft tissue hematomas. IMPRESSION: 1. No pelvic fractures or deformities. 2. Bilateral ISAIAS are well-seated and aligned without complications. 3. Moderate distention of the bladder. No acute intrapelvic soft tissue abnormalities. 4. Additional chronic findings as above. CT scan - head: Radiologist's impression: INDICATION: Fall, trauma. COMPARISON: 12/03/2023 TECHNIQUE: CT of the brain / head without intravenous contrast. Multiplanar axial, coronal, and sagittal reformats were reconstructed. FINDINGS: No intracranial hemorrhage. Age-related parenchymal volume loss. No acute or subacute cortically based infarct. Near confluence periventricular white matter hypodensities may be related to chronic microvascular ischemia. Heavy atherosclerosis. No mass or mass effect. Normal ventricles. No skull fractures. No worrisome focal bone lesion. Small left parietal scalp hematoma/contusion. IMPRESSION: Small left parietal scalp hematoma/contusion. No intracranial hemorrhage. No skull fracture. CT cervical spine: Radiologist's impression: INDICATION: Fall, trauma. COMPARISON: 06/11/2025 TECHNIQUE: CT of the cervical spine without contrast. Multiplanar axial, coronal, and sagittal reformats were reconstructed. FINDINGS: No fracture. Straightening of the normal cervical lordosis. No acute malalignment. Multilevel advanced disc degenerative change. Multilevel severe facet arthritis, including facet fusion on the left at C3 through C5. Multilevel bilateral neural foraminal narrowing. No severe osseous central canal stenosis. No destructive bony lesions. No cervical prevertebral soft tissue swelling. IMPRESSION: No acute or traumatic cervical spine findings. Discharge Plan Discharge Disposition: [facility] Date of Admission: 09/20/25 14:17 Attending Provider on Discharge: Miguel Ángel Rutledge Primary Care Provider: Teagan Garcia Condition: Stable Discharge Medications: New rosuvastatin 10 mg Tablet 40 mg PO HS Qty: 30 0RF omeprazole 20 mg capsule,delayed release(DR/EC) 20 mg PO DAILY Qty: 30 0RF Continued cyanocobalamin (vitamin B-12) 1,000 mcg tablet 1,000 mcg PO DAILY cholecalciferol (vitamin D3) 25 mcg (1,000 unit) tablet 1,000 unit PO HS sennosides 8.6 mg tablet 34.4 mg PO HS Fish Oil 100-160-1,000 mg capsule 1 cap PO QDAY fluoxetine 20 mg capsule 20 mg PO QAM Qty: 90 3RF diltiazem HCl 120 mg capsule,extended release 24hr 120 mg PO DAILY Qty: 90 3RF docusate sodium [Colace] 100 mg capsule 100 mg PO HS acetaminophen 500 mg tablet 1,000 mg PO TID Rx Instructions: NO MORE THAN 4000 MG/DAY clopidogrel 75 mg tablet 75 mg PO HS rosuvastatin 40 mg tablet 40 mg PO HS Changed ibuprofen [Advil] 200 mg tablet 200 mg PO TID PRN (Reason: pain) Qty: 100 0RF Discharge Orders: Discharge Order (Routine); Ordered 09/21/25 Ordered By: Miguel Ángel Rutledge Activity Level: Activity as Tolerated and Use Walker Discharge Diet: Regular Follow Up Appointments: Teagan Garcia MD [Primary Care Provider, Internal Medicine] Referral Note: Follow-up in 1-2 weeks. Forms: [employer] Instructions Admit to: [facility] assisted living Discharge Potential: Fair Length of Stay: <30 days Can use facility standing orders?: Yes Code Status: DNR/DNI Rehab Potential: Fair Therapy: Physical Therapy and Occupational Therapy Therapy Orders: Evaluate and Treat Oxygen: No Lab Orders: Check basic metabolic panel in 1 week
--- NOTE | 2025-09-21 17:41 | PC.NURSE ---
Discharge Summary: Patient pleasant and cooperative. Afebrile. Up to bathroom and chair with 1 assist, walker and gait belt. Patient discharged to [facility] at 1700 with all personal belongings accompanied by family. Discharge instructions sent with family and all questions answered. Nurse to nurse given to Fany at [facility]. SL discontinued with tip intact.
== END 2025-09-21 17:00 ==
LOC: ED 13:18 → MEDSURG 14:17
PROVIDERS: Admitting Provider Family Medicine; Emergency Provider Family Medicine; PCP Internal Medicine; Visit Provider Family Medicine
DX: R55 Syncope and collapse (principal); I49.1 Atrial premature depolarization; R33.9 Retention of urine, unspecified; F03.90 Unspecified dementia, unspecified severity, without behavioral disturbance, psychotic disturbance, mood disturbance, and anxiety; D51.9 Vitamin B12 deficiency anemia, unspecified; R07.89 Other chest pain; R29.6 Repeated falls; F41.9 Anxiety disorder, unspecified; Z86.73 Personal history of transient ischemic attack (TIA), and cerebral infarction without residual deficits
CPT/HCPCS: 36415; 51798; 70450; 71046; 72125; 72192; 80048; 81001; 81003; 83735; 84484; 85025; 87081; 87086; 93005; 93306; 94761; 96360; 97110; 97116; 97162; 97165; 97530; 97535; 99284; 99285; 99291; A9270; G0378; G0390; J7030